=== PATIENT | female | born 1950 | race Caucasian/White ===

== ENCOUNTER → 2018-04-09 07:16 | Outpatient (CLI) | payer MEDICARE, SELFPAY ==
[2018-04-09 08:27] LABS: Abs Immature Grans 0.01 k/cumm (0.0-0.09); Absolute Basophil Count 0.04 k/cumm (0.0-0.2); Absolute Eosinophil Count 0.43 k/cumm (0.0-0.7); Absolute Lymphocyte Count 1.83 k/cumm (1.2-3.4); Absolute Monocyte Count 0.65 k/cumm (0.11-0.7); Absolute Neutrophil Count 4.03 k/cumm (1.2-6.7); Basophils % 0.6; Eosinophils % 6.2; HCT 39.5 % (36.0-46.0); HGB 12.8 g/dL (12.0-15.5); Immature Grans % 0.1; Lymphocytes % 26.2; Mean Corp. HGB Concentration 32.4 g/dL (32.0-36.0); Mean Corpuscular Hemoglobin 28.3 pg (27.0-33.0); Mean Corpuscular Volume 87.2 fL (80-95); Mean Platelet Volume 11.7 fL (8.0-11.0); Monocytes % 9.3; Neutrophils % 57.6; Platelet Count 214 x1000/uL (130-400); RBC 4.53 m/cumm (4.00-5.20); RBC Distribution Width 14.8 % (11.7-14.6); White Blood Cell Count 6.99 k/cumm (4.4-10.8)
[2018-04-09 09:56] LABS: ALT 23 U/L (12-78); AST 15 U/L (15-37); Albumin 3.6 g/dL (3.4-5.0); Alkaline Phosphatase 95 U/L (46-116); Anion Gap 6.5 mmol/L (3-11); BUN 15 mg/dL (7-18); Bilirubin, Total 0.4 mg/dL (0.2-1.0); CO2 29.5 mmol/L (21.0-32.0); CREATININE 0.79 mg/dL (0.55-1.02); Calcium 8.9 mg/dL (8.5-10.1); Chloride 104 mmol/L (98-107); Cholesterol 179 mg/dL (50-200); Glucose 97 mg/dL (70-100); HDL Cholesterol 62 mg/dL (40-60); LDL CHOLESTEROL 100 mg/dL (<100); Potassium 4.3 mmol/L (3.5-5.1); Sodium 140 mmol/L (136-145); TSH (W/Ref FT4) 1.29 uIU/mL (0.358-3.74); Total Protein 6.7 g/dL (6.4-8.2); Triglyceride 94 mg/dL (30-150)
== END ==
PROVIDERS: PCP Nurse Practitioner; Visit Provider Nurse Practitioner
DX: E03.9 Hypothyroidism, unspecified (principal); E78.00 Pure hypercholesterolemia, unspecified; I10 Essential (primary) hypertension
CPT/HCPCS: 36415; 80053; 80061; 83721; 84443; 85025

== ENCOUNTER 2018-10-16 08:23 | Outpatient (CLI) | payer MEDICARE, SELFPAY ==
[2018-10-16 10:04] LABS: ALT 26 U/L (12-78); AST 17 U/L (15-37); Albumin 3.5 g/dL (3.4-5.0); Alkaline Phosphatase 110 U/L (46-116); Anion Gap 7.4 mmol/L (3-11); BUN 18 mg/dL (7-18); Bilirubin, Total 0.4 mg/dL (0.2-1.0); CO2 31.6 mmol/L (21.0-32.0); CREATININE 0.83 mg/dL (0.55-1.02); Calcium 10.1 mg/dL (8.5-10.1); Chloride 103 mmol/L (98-107); Cholesterol 206 mg/dL (50-200); Glucose 110 mg/dL (70-100); HDL Cholesterol 69 mg/dL (40-60); LDL CHOLESTEROL 107 mg/dL (<100); Potassium 4.6 mmol/L (3.5-5.1); Sodium 142 mmol/L (136-145); TSH (W/Ref FT4) 2.37 uIU/mL (0.358-3.74); Total Protein 7.1 g/dL (6.4-8.2); Triglyceride 124 mg/dL (30-150)
== END 2018-10-16 08:43 ==
PROVIDERS: PCP Nurse Practitioner; Visit Provider Nurse Practitioner
DX: E78.00 Pure hypercholesterolemia, unspecified (principal); I10 Essential (primary) hypertension; E03.9 Hypothyroidism, unspecified; E66.9 Obesity, unspecified
CPT/HCPCS: 36415; 80053; 80061; 83721; 84443

== ENCOUNTER 2018-10-17 00:15 | Outpatient (CLI) | payer MEDICARE, SELFPAY ==
--- NOTE | 2018-10-17 13:34 | DI.RAD_ITS ---
SYMPTOMS/DIAGNOSIS: SCREENING FOR OSTEOPOROSIS IN A POSTMENOPAUSAL WOMAN, Z78.0, Z13.820 DEXA SCAN: Routine examination was performed. The single lateral image shows no compression deformities. Evaluation of the left hip shows a total T score of 0.8 and a Z score of 2.1. Evaluation of the lumbar spine shows a total T score of 0.1 and a Z score of 2. These are within normal limits. No evidence of osteoporosis is present. IMPRESSION: No evidence of osteoporosis.
--- NOTE | 2018-10-17 14:32 | DI.MAMMO_ITS ---
SYMPTOMS/DIAGNOSIS: SCREENING, Z12.31 MAMMOGRAMS: Mammograms were interpreted according to the usual protocol including computer analysis with CAD system, tomosynthesis and C view imaging. Comparison is with the prior examinations. There is a focal asymmetric density in the outer retroareolar region of the left breast seen on the craniocaudad view. In addition, there is a nodular area of asymmetric breast tissue in the upper left breast seen on the mediolateral oblique view. These areas should be further evaluated with spot compression views. Ultrasound may be indicated at that time. No other suspicious masses or microcalcifications are seen. Breast density category B, category 0. MQSA ASSESSMENT OF FINDINGS: Incomplete: Needs additional imaging evaluation. Category 0. Patient will receive a letter notifying them of these results. BI-RADS category B. There are scattered areas of fibroglandular density.
== END 2018-10-17 00:35 ==
PROVIDERS: PCP Nurse Practitioner; Visit Provider Nurse Practitioner
DX: Z12.31 Encounter for screening mammogram for malignant neoplasm of breast (principal); Z13.820 Encounter for screening for osteoporosis; Z78.0 Asymptomatic menopausal state; R92.8 Other abnormal and inconclusive findings on diagnostic imaging of breast
CPT/HCPCS: 77063; 77067; 77080

== ENCOUNTER 2018-10-28 01:38 | Outpatient (CLI) | payer MEDICARE, SELFPAY ==
--- NOTE | 2018-10-28 14:13 | DI.MAMMO_ITS ---
SYMPTOM/DIAGNOSIS: F/U ABNL MAMMO, ASYMMETRIC BREAST TISSUE LEFT BREAST ADDITIONAL VIEWS: CC and MLO spot compression views were performed for questioned areas of asymmetry in the superior and subareolar regions. No persistent abnormality is seen on the additional views performed. The findings are consistent with overlying fibroglandular tissue. IMPRESSION: Category 1, negative mammogram. Yearly screening mammography is recommended. SA ASSESSMENT OF FINDINGS: Negative. Category 1. Patient will receive a letter notifying them of these results. BI-RADS category B. There are scattered areas of fibroglandular density.
== END 2018-10-28 01:58 ==
PROVIDERS: PCP Nurse Practitioner; Visit Provider Nurse Practitioner
DX: Z12.31 Encounter for screening mammogram for malignant neoplasm of breast (principal); R92.8 Other abnormal and inconclusive findings on diagnostic imaging of breast; N64.59 Other signs and symptoms in breast
CPT/HCPCS: 77063; 77067

== ENCOUNTER 2019-05-15 01:53 | Outpatient (CLI) | payer MEDICARE, SELFPAY ==
--- NOTE | 2019-05-15 11:00 | NS.NUTBLAN_ITS ---
DESCRIPTION: Brittni Valentin presents for nutrition consult with multiple comorbidities including hypertension, hypothyroidism, cholesterol and stomach issues taking omeprazole. Brittni takes coffee with cardamom changed from croatian vanilla creamer, to decrease acidity in coffee. She has an egg, sausage or le or oatmeal with maple syrup, peanut butter and milk with le. Lunch is leftovers or soup such as lentil mixed vegetable, tomato. SHe often has a salad. Afternoon snack of apple; supper baked beans hot dogs last night. She has evening snack of sugar free chocolate pudding, popcorn, chips, candy, toast with peanut butter; mustard pretzels last night. Brittni has joined a health club. She has difficulty with her ankles and knees from arthritis, however she uses the wee fit 14 minute and moves around at least once an hour during the day. INTERVENTION: Addressed hypertension assessing sodium and cardiovascular concerns with emphasis on increasing vegetables to 5 servings per day; cutting back on fatty meats at breakfast especially. Discussed making own dips and salad dressings to cut sodium and possibly fat. Addressed stomach issues advising prevention of GERD symptoms. Brittni is engaged in the conversation and motivated to make small changes to improve her health discomfort and worries. PLAN: Brittni will: decrease sausage/le; increase veggies in omelet, soups, additional veggies at lunch and supper. Drink beverages between meals; wear loose fitting clothes around waist, sit upright for 2 hours after meal; lower fat at supper meal.
== END 2019-05-15 02:13 ==
PROVIDERS: PCP Nurse Practitioner; Visit Provider Dietitian, Registered
DX: I10 Essential (primary) hypertension (principal); E03.9 Hypothyroidism, unspecified; E78.89 Other lipoprotein metabolism disorders; Z71.3 Dietary counseling and surveillance
CPT/HCPCS: 97802

== ENCOUNTER 2019-06-19 17:00 | Outpatient (REF) | payer MEDICARE, SELFPAY ==
--- NOTE | 2019-06-19 16:30 | PAPFT_PTH ---
PATIENT: Brittni Valentin LOC: [facility] U#:[id number] AGE/SX: 68/F ROOM: RE06/19/[address]: Michele Quiroga MD : 1950 BED: DIS: 06/19/2019 SPEC #: [id number] RECD: 06/19/19 18:24 STATUS: BC REQ #: [id number] DAWOOD: 06/19/19 16:[address]: Michele Quiroga DEPT: [facility] Cytology RECD BY: Sunshine Gipson ENTERED: 06/19/19 18:25 SP TYPE: PAPFT PARESH DR: Ann Choi APRN Tissues: 1 - CX/ENDOCX FOR PAP SMEARS Procedures: PAP THIN PREP/UVM Screening HPV DNA PROBE Comments: [id number]
== END 2019-06-19 17:20 ==
LOC: LBN 17:00
PROVIDERS: PCP Nurse Practitioner; Visit Provider Obstetrics & Gynecology
DX: Z12.4 Encounter for screening for malignant neoplasm of cervix (principal); Z11.51 Encounter for screening for human papillomavirus (HPV)
CPT/HCPCS: 88142; 87624

== ENCOUNTER 2019-06-25 01:04 | Outpatient (CLI) | payer MEDICARE, SELFPAY ==
--- NOTE | 2019-06-25 12:33 | DI.US_ITS ---
EXAM: US PELVIS TRANSVAGINAL CLINICAL HISTORY: PMB N95.0 TECHNIQUE: Ultrasound performed using standard protocol. COMPARISON: No exams were available for comparison FINDINGS: The uterus measures 8.0 cm long x 3.2 cm AP x 4.7 cm transverse. Fundal endometrium has a masslike a ppearance and is thickened and echogenic. It measures focally 3.5 x 2.6 x 2.7 cm. There is internal blood flow. Cervical nabothian cysts are present. The left ovary was not visualized transabdominal ly or transvaginally. The right ovary measures 1.8 x 1.4 x 1.2 cm. It is unremarkable. No free pelv ic fluid is seen. There is no hydronephrosis. IMPRESSION: Thickened heterogeneous vascular fundal endometrium. This area measures 3.5 x 2.6 x 2.7 cm. Endomet rial mass/neoplasm cannot be excluded. Gynecologic consult is recommended.
== END 2019-06-25 01:24 ==
PROVIDERS: PCP Nurse Practitioner; Visit Provider Obstetrics & Gynecology
DX: N95.0 Postmenopausal bleeding (principal); N85.8 Other specified noninflammatory disorders of uterus
CPT/HCPCS: 76830; 76856

== ENCOUNTER 2019-07-04 12:43 | Outpatient (CLI) | payer MEDICARE, SELFPAY ==
[2019-07-04 13:27] LABS: Abs Immature Grans 0.01 k/cumm (0.0-0.09); Absolute Basophil Count 0.05 k/cumm (0.0-0.2); Absolute Eosinophil Count 0.36 k/cumm (0.0-0.7); Absolute Lymphocyte Count 1.96 k/cumm (1.2-3.4); Absolute Monocyte Count 0.57 k/cumm (0.11-0.7); Absolute Neutrophil Count 4.32 k/cumm (1.2-6.7); Basophils % 0.7; HCT 39.6 % (36.0-46.0); HGB 12.9 g/dL (12.0-15.5); Immature Grans % 0.1; Mean Corp. HGB Concentration 32.6 g/dL (32.0-36.0); Mean Corpuscular Hemoglobin 28.4 pg (27.0-33.0); Mean Corpuscular Volume 87.2 fL (80-95); Monocytes % 7.8; Neutrophils % 59.4; Platelet Count 280 x1000/uL (130-400); RBC 4.54 m/cumm (4.00-5.20); RBC Distribution Width 14.7 % (11.7-14.6); White Blood Cell Count 7.27 k/cumm (4.4-10.8)
== END 2019-07-04 13:03 ==
PROVIDERS: PCP Nurse Practitioner; Visit Provider Obstetrics & Gynecology
DX: N95.0 Postmenopausal bleeding (principal); Z01.818 Encounter for other preprocedural examination; Z01.812 Encounter for preprocedural laboratory examination
CPT/HCPCS: 36415; 86850; 86900; 86901; 85025

== ENCOUNTER 2019-07-09 06:02 | Day surgery (SDC) | payer MEDICARE, SELFPAY ==
[2019-07-09 06:25] VITALS: PULSE 77; RESP 18; TEMP 36.6; O2SAT 95
[2019-07-09] MEDS: Lactated Ringers 1,000 ML 100 ML IV (06:50)
--- NOTE | 2019-07-09 07:00 | DI.US_ITS ---
EXAM: US PELVIS LIMITED CLINICAL HISTORY: Intraoperative instrument guidance TECHNIQUE: Ultrasound performed using standard protocol. COMPARISON: US PELVIS TRANSVAGINAL from 06/25/2019 FINDINGS: Sonography was utilized by Dr. Quiroga during the performance of an intraoperative endometrial biopsy. Please refer to the procedure report for complete details.
[2019-07-09] MEDS: Lidocaine 1% Multi-Dose 50 ML VIAL (07:56)
--- NOTE | 2019-07-09 08:11 | ENDOMET_PTH ---
PATIENT: Brittni Valentin LOC: [facility] U#:[id number] AGE/SX: 68/F ROOM: RE07/09/[address]: Michele Quiroga MD : 1950 BED: DIS: 07/09/2019 SPEC #: [id number] RECD: 07/09/19 12:30 STATUS: BC RETemitope #: [id number] DAWOOD: 07/09/19 08:[address]: Michele Quiroga DEPT: Surgical Specimen RECD BY: Sunshine Gipson ENTERED: 07/09/19 12:33 SP TYPE: Endomet OT DR: Ann Choi APRN Tissues: 1 - ENDOMETRIUM BX/CURRETTE Procedures: GROSS AND MICRO LEVEL 4 Comments: [id number]
--- NOTE | 2019-07-09 08:43 | W.PM.OP ---
Date of service: 07/09/19 Time of Service: 08:43 Operative Note Operative Note DATE OF PROCEDURE: 07/09/19 PRE-OP DIAGNOSIS: Thickened EM Cervical stenosis POST-OP DIAGNOSIS: same PROCEDURE: Hysteroscopy D&C SURGEON: Michele Quiroga ANESTHESIA: CRICKETA and MAT ESTIMATED BLOOD LOSS: 10 PATHOLOGY: other (Endometrial curettings) COMPLICATIONS: None Patient was transported to: PACU Patient's condition: stable Findings: 1. Thickened vascular appearing lesion occupying a large portion of the endometrial cavity. Procedure Description: The patient was taken to the operating room and after adequate general anesthesia was obtained the patient was placed in lithotomy position. The patient was prepped and draped in the usual sterile manner. A Haddad catheter was placed in the bladder and the bladder was distended with approximately 200 mL's of normal saline. This was performed to facilitate ultrasound guidance due to cervical stenosis. A speculum was placed in the vagina with good visualization of the cervix. The anterior lip of the cervix was grasped with a single-tooth tenaculum. A paracervical block with 10 cc of 1% plain lidocaine solution was instilled. The cervix was gently dilated with Tracey dilators. This was performed under ultrasound guidance ensuring entrance to the endometrial cavity. The 5 mm hysteroscope with normal saline distention media was advanced to the cervix. This was also placed under ultrasound guidance and the endometrial cavity was entered. The cavity was occupied by a large glandular vascular lesion with the appearance of possible malignancy. The hysteroscope was removed. A small sharp loop curette was advanced also under ultrasound guidance and a curettage was performed. Specimens were submitted to pathology. The procedure was concluded at this point. The Haddad catheter was removed after bladder drainage. All other instrumentation was removed. The patient was transferred to PACU in stable condition.
--- NOTE | 2019-07-09 08:51 | W.PM.DSUDISC ---
Discharge Plan Discharge Details Attending Provider: Michele Quiroga Primary Care Provider: Ann Choi Home Meds and New Rx's Prescriptions: No Action meclizine 12.5 mg tablet 12.5 mg PO TID PRN (Reason: vertigo) Qty: 30 RF: 1 levothyroxine 75 mcg tablet 75 mcg PO DAILY Qty: 90 RF: 3 omeprazole 20 mg capsule,delayed release(DR/EC) 20 mg PO DAILY Qty: 30 RF: 12 acetaminophen 325 MG tablet 325 mg PO Q6H PRN RF: 0 Fish Oil 1 EACH capsule 1 ea PO DAILY RF: 0 vit d3 1,000 units PO DAILY RF: 0 fluticasone propionate [Flonase Allergy Relief] 9.9 ML spray,suspension 9.9 ml NS DAILY Qty: 3 RF: 3 docusate sodium [Stool Softener] 100 MG tablet 100 mg PO BID Qty: 100 RF: 6 losartan 25 mg tablet 25 mg PO DAILY Qty: 90 RF: 3 hydrochlorothiazide 25 mg tablet 25 mg PO DAILY Qty: 90 RF: 3 lovastatin 20 mg tablet 40 mg PO DAILY Qty: 180 RF: 3 DS: Diagnosis Discharge Diagnosis (1) Post-menopausal bleeding: Status: Acute (2) Cervical stenosis (uterine cervix): Status: Acute
[2019-07-09] MEDS: Acetaminophen 500 MG TAB 1000 MG PO (09:04)
[2019-07-09 09:05] VITALS: BP 155/86; PULSE 63; RESP 16; TEMP 36; O2SAT 98
== END 2019-07-09 10:04 | disposition home or self-care (01) ==
LOC: SUR 06:02
PROVIDERS: PCP Nurse Practitioner; Visit Provider Obstetrics & Gynecology
PROC: 0UDB8ZZ Extraction of Endometrium, Via Natural or Artificial Opening Endoscopic (ICD-10-PCS; CPT 58558; principal; 2019-07-09 07:30)
DX: C54.1 Malignant neoplasm of endometrium (principal); R93.89 Abnormal findings on diagnostic imaging of other specified body structures; N95.0 Postmenopausal bleeding; N88.2 Stricture and stenosis of cervix uteri
CPT/HCPCS: 58558; 76998; 76857; 88305

== ENCOUNTER 2019-09-17 07:53 | Outpatient (CLI) | payer MEDICARE, SELFPAY ==
[2019-09-17 08:59] LABS: ALT 24 U/L (14-59); AST 22 U/L (15-37); Albumin 3.6 g/dL (3.4-5.0); Alkaline Phosphatase 115 U/L (46-116); Anion Gap 8.4 mmol/L (3-11); BUN 17 mg/dL (7-18); Bilirubin, Total 0.3 mg/dL (0.2-1.0); CO2 25.6 mmol/L (21.0-32.0); Calcium 9.5 mg/dL (8.5-10.1); Chloride 104 mmol/L (98-107); Glucose 107 mg/dL (74-106); Potassium 4.2 mmol/L (3.5-5.1); Sodium 138 mmol/L (136-145); TSH (W/Ref FT4) 1.54 uIU/mL (0.36-3.74); Total Protein 7.3 g/dL (6.4-8.2)
[2019-09-17 09:13] LABS: Calculated LDL 133 mg/dL; Cholesterol 216 mg/dL (<200); HDL Cholesterol 61 mg/dL (40-60); Triglyceride 111 mg/dL (<150)
== END 2019-09-17 08:13 ==
PROVIDERS: PCP Nurse Practitioner; Visit Provider Nurse Practitioner
DX: I10 Essential (primary) hypertension (principal); E03.9 Hypothyroidism, unspecified; E78.00 Pure hypercholesterolemia, unspecified; E66.9 Obesity, unspecified
CPT/HCPCS: 36415; 80053; 80061; 84443

== ENCOUNTER 2019-09-26 01:45 | Outpatient (CLI) | payer MEDICARE, SELFPAY ==
[2019-09-26] MEDS: Breeza Beverage 473 ML BTL PO ×2 (12:18→12:19)
[2019-09-26] MEDS: Omnipaque 350 MG/ML 50 ML BTL PO (12:19)
[2019-09-26] MEDS: Normal Saline - Diluent 50 ML VIAL IV (13:18)
[2019-09-26] MEDS: Omnipaque 350 MG/ML 100 ML BTL IJ (13:19)
--- NOTE | 2019-09-26 14:06 | DI.CT_ITS ---
EXAM: CT CHEST/ABD/PEL W CLINICAL HISTORY: ENDOMETRIAL CANCER C54.1 TECHNIQUE: CT examination of the chest, abdomen and pelvis was performed utilizing biphasic hepatic imaging with intravenous infusion of 100 cc of Omnipaque 350 and ingestion of dilute barium. COMPARISON: No exams were available for comparison FINDINGS: No bony lesion identified on scanning of the chest, abdomen or pelvis. No evidence of pulmonary embolic disease. Mild cardiomegaly noted. Thoracic aorta is within normal limits in diameter. No pleural effusion seen. There are bilateral fissural nodules, in the right lung posteriorly measuring 10 x 9 x 6 millimeters and in the left lung posteriorly measuring 11 x 7 x 4 millimeters in diameter. No other focal pulmon rashard lesions seen. Possibility of metastatic disease not excluded on the basis of this examination. Additional evaluation with PET/CT may be considered if clinically appropriate. No mediastinal or hilar adenopathy. Liver, spleen and pancreas appear intact. No biliary dilatation. Adrenals and kidneys are unremarka ble, no evidence of urinary tract calcification or obstruction. No significant abdominal or pelvic adenopathy. No inguinal adenopathy. There is colonic diverticulosis. No evidence of acute diverticulitis. There is a low-attenuation we ll-circumscribed bilobed mass adjacent to the descending colon, question sterile old diverticular abs cess. Abdominal adenopathy not excluded but this would be an unusual presentation. No significant a bdominal wall hernia or abdominal wall mass. Abdominal aorta is of normal diameter and no major vascular abnormality is seen. IMPRESSION: Indeterminate bilateral pulmonary nodules are seen in a patient with history of endometrial carcinoma . Prior studies requested for comparison. If no previous examinations are available, additional eval uation with PET/CT may be considered. Bilobed mass slightly above fluid attenuation adjacent to descending colon, question old sterile absc ess. Metastatic lesion not absolutely excluded, again PET/CT may be considered for further evaluatio n.
== END 2019-09-26 02:05 ==
PROVIDERS: PCP Nurse Practitioner; Visit Provider Radiology Radiation Oncology
DX: C54.1 Malignant neoplasm of endometrium (principal); Z12.89 Encounter for screening for malignant neoplasm of other sites; I51.7 Cardiomegaly; R91.8 Other nonspecific abnormal finding of lung field; K57.30 Diverticulosis of large intestine without perforation or abscess without bleeding
CPT/HCPCS: 74177; 71260; J3490; Q9967

== ENCOUNTER 2019-10-24 10:59 | Outpatient (REF) | payer MEDICARE, SELFPAY | END 2019-10-24 11:19 | LOC: LBN 10:59 | PROVIDERS: PCP Nurse Practitioner; Visit Provider Family Medicine | DX: J06.9 Acute upper respiratory infection, unspecified (principal) | CPT/HCPCS: 87449 ==

== ENCOUNTER 2019-10-24 13:14 | Outpatient (CLI) | payer MEDICARE, SELFPAY ==
--- NOTE | 2019-10-24 11:00 | DI.RAD_ITS ---
EXAM: XR CHEST 2V PA LATERAL INDICATION: Cough, fever, undergoing XRT; r/o pneumonia, J06.9 ACUTER UPPER. COMPARISON: No exams were available for comparison TECHNIQUE: 2D digital imaging was performed. FINDINGS: The lungs are suboptimally inflated on both views. There is a linear area of atelectasis or scarring seen in the left upper lobe. There is question of mildly increased densities at the right lung base . The findings could represent atelectasis versus infiltrate. No effusions are seen. Degenerative changes are seen in the spine. IMPRESSION: Poor pulmonary inflation. Question of a right lower lobe infiltrate versus atelectasis. DATA REPOSITORY: RADIATION DOSE DELIVERED:
== END 2019-10-24 13:34 ==
PROVIDERS: PCP Nurse Practitioner; Visit Provider Family Medicine
DX: R05 Cough (principal); R50.9 Fever, unspecified; J06.9 Acute upper respiratory infection, unspecified; J98.4 Other disorders of lung
CPT/HCPCS: 71046

== ENCOUNTER 2019-10-30 09:39 | Outpatient (CLI) | payer MEDICARE, SELFPAY ==
[2019-10-30 10:04] LABS: Abs Immature Grans 0.04 k/cumm (0.0-0.09); Absolute Basophil Count 0.03 k/cumm (0.0-0.2); Absolute Eosinophil Count 0.28 k/cumm (0.0-0.7); Absolute Lymphocyte Count 0.84 k/cumm (1.2-3.4); Absolute Monocyte Count 0.58 k/cumm (0.11-0.7); Absolute Neutrophil Count 3.62 k/cumm (1.2-6.7); Basophils % 0.6; Eosinophils % 5.2; HCT 38.1 % (36.0-46.0); HGB 12.2 g/dL (12.0-15.5); Immature Grans % 0.7 %; Lymphocytes % 15.6; Mean Corpuscular Hemoglobin 27.5 pg (27.0-33.0); Mean Corpuscular Volume 85.8 fL (80-95); Mean Platelet Volume 10.9 fL (8.0-11.0); Monocytes % 10.8; Neutrophils % 67.1; Platelet Count 220 x1000/uL (130-400); RBC 4.44 m/cumm (4.00-5.20); RBC Distribution Width 14.4 % (11.7-14.6); White Blood Cell Count 5.39 k/cumm (4.4-10.8)
== END 2019-10-30 09:59 ==
PROVIDERS: PCP Nurse Practitioner; Visit Provider Radiology Radiation Oncology
DX: C54.1 Malignant neoplasm of endometrium (principal)
CPT/HCPCS: 36415; 85025

== ENCOUNTER 2019-11-12 13:37 | Outpatient (CLI) | payer MEDICARE, SELFPAY ==
[2019-11-12 14:00] LABS: Abs Immature Grans 0.01 k/cumm (0.0-0.09); Absolute Basophil Count 0.02 k/cumm (0.0-0.2); Absolute Eosinophil Count 0.33 k/cumm (0.0-0.7); Absolute Lymphocyte Count 0.56 k/cumm (1.2-3.4); Absolute Monocyte Count 0.64 k/cumm (0.11-0.7); Absolute Neutrophil Count 3.69 k/cumm (1.2-6.7); Basophils % 0.4; Eosinophils % 6.3; HCT 39.7 % (36.0-46.0); HGB 12.7 g/dL (12.0-15.5); Immature Grans % 0.2 %; Lymphocytes % 10.7; Mean Corpuscular Hemoglobin 27.6 pg (27.0-33.0); Mean Corpuscular Volume 86.3 fL (80-95); Mean Platelet Volume 10.4 fL (8.0-11.0); Monocytes % 12.2; Neutrophils % 70.2; Platelet Count 226 x1000/uL (130-400); White Blood Cell Count 5.25 k/cumm (4.4-10.8)
== END 2019-11-12 13:57 ==
PROVIDERS: PCP Nurse Practitioner; Visit Provider Radiology Radiation Oncology
DX: C54.1 Malignant neoplasm of endometrium (principal)
CPT/HCPCS: 36415; 85025

== ENCOUNTER 2019-11-26 13:51 | Outpatient (CLI) | payer MEDICARE, SELFPAY ==
[2019-11-26 14:09] LABS: Abs Immature Grans 0.02 k/cumm (0.0-0.09); Absolute Basophil Count 0.01 k/cumm (0.0-0.2); Absolute Eosinophil Count 0.24 k/cumm (0.0-0.7); Absolute Lymphocyte Count 0.22 k/cumm (1.2-3.4); Absolute Monocyte Count 0.78 k/cumm (0.11-0.7); Absolute Neutrophil Count 4.56 k/cumm (1.2-6.7); Basophils % 0.2; Eosinophils % 4.1; HGB 12.1 g/dL (12.0-15.5); Immature Grans % 0.3 %; Lymphocytes % 3.8; Mean Corp. HGB Concentration 32.7 g/dL (32.0-36.0); Mean Corpuscular Volume 85.6 fL (80-95); Mean Platelet Volume 10.1 fL (8.0-11.0); Monocytes % 13.4; Neutrophils % 78.2; Platelet Count 204 x1000/uL (130-400); RBC 4.32 m/cumm (4.00-5.20); RBC Distribution Width 15.7 % (11.7-14.6); White Blood Cell Count 5.83 k/cumm (4.4-10.8)
== END 2019-11-26 14:11 ==
PROVIDERS: PCP Nurse Practitioner; Visit Provider Radiology Radiation Oncology
DX: C54.1 Malignant neoplasm of endometrium (principal)
CPT/HCPCS: 36415; 85025

== ENCOUNTER 2020-07-30 02:35 | Outpatient (CLI) | payer MEDICARE, SELFPAY ==
[2020-07-30 10:11] LABS: ALT 29 U/L (14-59); AST 18 U/L (15-37); Albumin 3.9 g/dL (3.4-5.0); Alkaline Phosphatase 111 U/L (46-116); Anion Gap 5.1 mmol/L (3-11); BUN 18 mg/dL (7-18); Bilirubin, Total 0.3 mg/dL (0.2-1.0); CO2 29.9 mmol/L (21.0-32.0); CREATININE 0.87 mg/dL (0.55-1.02); Calcium 9.4 mg/dL (8.5-10.1); Calculated LDL 97 mg/dL (<100); Chloride 103 mmol/L (98-107); Cholesterol 189 mg/dL (<200); Glucose 110 mg/dL (74-106); HDL Cholesterol 68 mg/dL (40-60); Potassium 4.4 mmol/L (3.5-5.1); Sodium 138 mmol/L (136-145); TSH (W/Ref FT4) 2.88 uIU/mL (0.36-3.74); Total Protein 7.1 g/dL (6.4-8.2); Triglyceride 122 mg/dL (<150)
== END 2020-07-30 02:55 ==
PROVIDERS: PCP Nurse Practitioner; Visit Provider Nurse Practitioner
DX: I10 Essential (primary) hypertension (principal); E03.9 Hypothyroidism, unspecified; E78.00 Pure hypercholesterolemia, unspecified; E66.9 Obesity, unspecified
CPT/HCPCS: 36415; 80053; 80061; 84443

== ENCOUNTER 2020-09-30 00:24 | Outpatient (CLI) | payer MEDICARE, SELFPAY ==
--- NOTE | 2020-09-30 07:45 | DI.MAMMO_ITS ---
EXAM: MG MAMMO SCREENING CLINICAL HISTORY: screening,z12.39 TECHNIQUE: Bilateral full field digital CC and MLO mammographic images were obtained with 3D tomosyn thesis and utilizing computer aided detection (CAD). COMPARISON: Available for comparison. FINDINGS: Masses/Architectural Distortion: None seen. Microcalcifications: No suspicious pleomorphic-type are seen. Skin Thickening/Nipple Retraction: None. IMPRESSION: 1. No significant interval change with no specific features of malignancy noted. 2. Unless there is more urgent need, screening mammography is recommended, as per [employer] guidelines. BI-RADS Category 1 - Negative Breast Density - Category B - Scattered areas of fibroglandular density Breast density category C or D implies that the patient has dense breast tissue. Dense breast tissue is very common and is not abnormal but dense breast tissue can make it harder to find cancer on a ma mmogram. Also, dense breast tissue may increase their breast cancer risk. This information about the result of the mammogram report was provided to the patient to raise their awareness. Use this report when you speak with the patient about their risks for breast cancer, which includes their family hist ory. At that time, you may recommend for more screening tests (Ultrasound or MRI) as they might be us eful based on their risk. A negative radiographic report should not delay biopsy if a dominant or clinically suspicious mass is present. Up to ten percent of cancers are not identified on mammography. A negative report may reinforce clinical impression. Adenosis and dense breasts may obscure an underlying neoplasm. False positive reports average 6 to 10%. Patient will receive a letter notifying them of these results.
== END 2020-09-30 00:25 | disposition home or self-care (01) ==
LOC: DI 00:25
PROVIDERS: PCP Nurse Practitioner; Visit Provider Nurse Practitioner
DX: Z12.31 Encounter for screening mammogram for malignant neoplasm of breast (principal)
CPT/HCPCS: 77063; 77067

== ENCOUNTER 2020-10-13 11:00 | Outpatient (CLI) | payer MEDICARE, SELFPAY ==
--- NOTE | 2020-10-13 11:00 | DI.RAD_ITS ---
EXAM: XR KNEE RT 3V AP,LAT,BENEDICTO CLINICAL HISTORY: bilateral pain. TECHNIQUE: 2D digital imaging was performed. COMPARISON: No exams were available for comparison FINDINGS: There is no evidence of fracture. There appears to be a small joint effusion. There are degenerativ e changes in all 3 compartments, most prominent in the medial and patellofemoral compartments where t here is [id number]. Also significant degenerative changes in the lateral compartment. There is a calcification in the soft tissues lateral to the lateral to the joint measuring approximately 9 x 6 m illimeters. IMPRESSION: Advanced osteoarthritic degenerative changes in the right knee. DATA REPOSITORY: RADIATION DOSE DELIVERED:
--- NOTE | 2020-10-13 11:00 | DI.RAD_ITS ---
EXAM: XR KNEE LT 4V AP,LAT,BENEDICTO,PAT CLINICAL HISTORY: bilateral pain. TECHNIQUE: 2D digital imaging was performed. COMPARISON: CR XR KNEE RT 3V AP,LAT,BENEDICTO from 10/13/2020 FINDINGS: There is no evidence of fracture or obvious joint effusion. However, there are significant tricompar tmental osteoarthritic degenerative changes. Also mild medial subluxation of the femoral condyles re lative to the tibial plateau. No patellar displacement. No osseous lesions. IMPRESSION: Osteoarthritic degenerative changes moderate-severe. DATA REPOSITORY: RADIATION DOSE DELIVERED:
== END 2020-10-13 11:01 | disposition home or self-care (01) ==
LOC: DIORS 10-14 08:15
PROVIDERS: PCP Nurse Practitioner; Referring Provider Nurse Practitioner; Visit Provider Student in an Organized Health Care Education/Training Program
DX: M25.561 Pain in right knee (principal); M25.562 Pain in left knee; M25.461 Effusion, right knee; M17.0 Bilateral primary osteoarthritis of knee
CPT/HCPCS: 73562; 99203; 99214; 73564

== ENCOUNTER 2020-11-22 11:12 | Outpatient (CLI) | payer MEDICARE, SELFPAY ==
--- NOTE | 2020-11-22 11:08 | DI.RAD_ITS ---
EXAM: XR STANDING ALIGNMENT CLINICAL HISTORY: preop. TECHNIQUE: 2D digital imaging was performed. COMPARISON: CR XR KNEE LT 4V AP,LAT,BENEDICTO,PAT from 10/13/2020 FINDINGS: There are significant degenerative changes in both knees. There is moderate-advanced narrowing of th e medial compartment of the left knee and advanced-severe degenerative narrowing of the medial compar tment of the right knee. Both lateral compartments exhibit normal height but marginal osteophytes. Hips appear unremarkable. Ankles unremarkable. There are no significant osseous lesions in the femurs and tibia. IMPRESSION: Significant osteoarthritic degenerative changes in both knees, appearing to be slightly more prominen t in the right knee. DATA REPOSITORY: RADIATION DOSE DELIVERED:
--- NOTE | 2020-11-22 11:10 | DI.RAD_ITS ---
EXAM: XR KNEE RT 1V CLINICAL HISTORY: preop. TECHNIQUE: 2D digital imaging was performed. COMPARISON: CR XR STANDING ALIGNMENT from 11/22/2020. Other images performed today reviewed FINDINGS: There is no evidence of obvious fracture. There are significant osteoarthritic degenerative changes noted. There is a joint effusion in the suprapatellar bursa evident. IMPRESSION: DATA REPOSITORY: RADIATION DOSE DELIVERED:
== END 2020-11-22 11:13 | disposition home or self-care (01) ==
LOC: DIORS 11:12
PROVIDERS: PCP Nurse Practitioner; Referring Provider Nurse Practitioner; Visit Provider Student in an Organized Health Care Education/Training Program
DX: M17.0 Bilateral primary osteoarthritis of knee (principal); M25.461 Effusion, right knee
CPT/HCPCS: 99213; 73560; 77073

== ENCOUNTER 2020-12-20 04:11 | Outpatient (CLI) | payer MEDICARE, SELFPAY ==
[2020-12-20 10:14] LABS: HGB 12.8 g/dL (11.2-15.7); MCH 29.1 pg (27.0-33.0); MCHC 32.8 % (32.0-36.0); MCV 88.6 fL (80-95); MPV 10.6 fL (8.0-11.0); Platelet Count 236 10^3/uL (130-400); RDW 14.2 % (11.7-14.6); RDW-SD 46.4 fL; WBC 6.71 10^3/uL (4.4-10.8)
[2020-12-20 10:26] LABS: Source Nasal/Nares
[2020-12-20 10:48] LABS: Anion Gap 8.7 mmol/L (3-11); BUN 21 mg/dL (7-18); CO2 29.3 mmol/L (21.0-32.0); CREATININE 0.7 mg/dL (0.55-1.02); Calcium 9.3 mg/dL (8.5-10.1); Chloride 105 mmol/L (98-107); Glucose 82 mg/dL (74-106); Potassium 3.8 mmol/L (3.5-5.1); Sodium 143 mmol/L (136-145)
[2020-12-20 13:22] LABS: COVID-19 PCR Negative (Negative)
== END 2020-12-20 04:12 | disposition home or self-care (01) ==
LOC: LBO 04:11
PROVIDERS: PCP Nurse Practitioner; Visit Provider Student in an Organized Health Care Education/Training Program
DX: M25.561 Pain in right knee (principal); M25.562 Pain in left knee; M17.0 Bilateral primary osteoarthritis of knee; Z20.822 Contact with and (suspected) exposure to COVID-19; Z01.818 Encounter for other preprocedural examination; Z01.812 Encounter for preprocedural laboratory examination
CPT/HCPCS: 36415; 80048; 85027; 87635

== ENCOUNTER 2020-12-21 08:16 | Day surgery (SDC) | payer MEDICARE, SELFPAY ==
[2020-12-21] VITALS (9 sets, daily range): BP systolic 128–141; BP diastolic 50–88; PULSE 65–89; RESP 16–23; TEMP 36–36.5; O2SAT 97–100; BMI 45.8
--- NOTE | 2020-12-21 08:10 | W.PM.DSUDISC ---
Documented by User: TOMEKA Church 12/21/20 08:16 Discharge Plan Disposition Patient Disposition: HOME Condition: Good Discharge Details Reason For Visit: Right TKA Attending Provider: Tano Cartwright Primary Care Provider: Ann Choi Home Meds and New Rx's Prescriptions: New acetaminophen 500 mg capsule 1,000 mg PO Q8H PRN PRNQty: 90 RF: 0 aspirin 81 mg tablet,delayed release (DR/EC) 81 mg PO BID Qty: 60 RF: 0 celecoxib 200 mg capsule 200 mg PO BID Qty: 60 RF: 0 gabapentin 300 mg capsule 300 mg PO QHS Qty: 14 RF: 0 oxycodone 5 mg capsule 5 mg PO Q4H PRNQty: 20 RF: 0 pantoprazole 40 mg tablet,delayed release (DR/EC) 40 mg PO DAILY Qty: 30 RF: 0 Continued levothyroxine 75 mcg tablet 75 mcg PO DAILY Qty: 90 RF: 3 docusate sodium [Stool Softener] 100 mg tablet 100 mg PO BID Qty: 100 RF: 6 hydrochlorothiazide 25 mg tablet 25 mg PO DAILY Qty: 90 RF: 3 coenzyme Q10 100 mg tablet 200 mg PO DAILY RF: 0 fluticasone propionate [Flonase Allergy Relief] 9.9 ML spray,suspension 9.9 ml NS DAILY Qty: 3 RF: 3 cholecalciferol (vitamin D3) [Vitamin D3] 25 mcg (1,000 unit) tablet 1,000 unit PO DAILY RF: 0 lovastatin 40 mg tablet 40 mg PO QPM Qty: 90 RF: 3 losartan 25 mg tablet 25 mg PO DAILY Qty: 90 RF: 3 Discontinued acetaminophen 325 MG tablet 325 mg PO Q6H PRN RF: 0 No Action acetaminophen 325 mg Tablet 325 mg PO ONCE RF: 0 Discharge Instructions Additional Instructions: Total Knee Discharge Instructions Activity: The most important activity is to walk. You should try to take short walks a few times a day. It is important that when resting you work on keeping the knee straight. Avoid putting a pillow behind the knee as this will encourage flexion. Work on range of motion exercises as provided by Physical Therapy. - Start outpatient physical therapy within 2 weeks. - You should wear the LEANNA hose on both legs for 2 weeks. You may remove these at night. You may also use any compression sock in place of the LEANNA hose. Dressing: You may remove the Renny wrap on your leg 2 days after your surgery and put on the LEANNA stocking given to you from the hospital. Keep the surgical dressing (underneath the RENNY wrap) in place for at least one week. After the first week it may be removed and replaced with light gauze and tape or nothing. The wound and dressing may get wet after 3 days but avoid soaking the dressing or otherwise it will need to be changed. Many people prefer covering the dressing with cling wrap (saran wrap) to minimize it from getting soaked. If it gets wet, just pat dry. If it starts to peel off then it will need to be changed. Medications: - You should take Tylenol and anti-inflammatory Celebrex as your primary pain control medications. If the Celebrex is too expensive or not covered, please call the office for another alternative (Advil/Ibuprofen or Naproxen/Aleve) - You have been prescribed a stronger pain medication Oxycodone for breakthrough pain, take as needed as prescribed. - You have also been prescribed a stomach acid reduction agent Pantoprozole to help reduce stomach acid and reflux. - You have been prescribed Gabapentin to take at night for restlessness and nerve pain. - You will be taking Aspirin 81mg twice a day for DVT prevention unless instructed otherwise. - If you have constipation you should take Colace or Miralax (both [id number]). It takes most people 3-4 days to have a bowel movement. Follow-up: 2 weeks If you have any acute concerns or questions, please do not hesitate to contact the office at [phone]. You may contact Dr. Cartwright with any questions after hours through the hospital at [phone] or on his cell phone at [phone]. Referrals: Tano Cartwright MD [ [facility] STAFF PHYSICIAN] - Equipment/Supplies: Walker Activity:: Activity as Tolerated Shower/Bathe:: Cover Diet:: As Tolerated Discharge Orders Discharge Orders: Discharge Order (Routine); Ordered 12/21/20 Ordered By: Tano Cartwright DS: Diagnosis Discharge Diagnosis (1) Osteoarthritis of right knee: Status: Acute Documented by User: Tano Cartwright MD 12/21/20 14:33 Discharge Plan Disposition Patient Disposition: HOME Condition: Good Discharge Details Reason For Visit: Right TKA Attending Provider: Tano Cartwright Primary Care Provider: Ann Choi Home Meds and New Rx's Prescriptions: New acetaminophen 500 mg capsule 1,000 mg PO Q8H PRN PRNQty: 90 RF: 0 aspirin 81 mg tablet,delayed release (DR/EC) 81 mg PO BID Qty: 60 RF: 0 celecoxib 200 mg capsule 200 mg PO BID Qty: 60 RF: 0 gabapentin 300 mg capsule 300 mg PO QHS Qty: 14 RF: 0 oxycodone 5 mg capsule 5 mg PO Q4H PRNQty: 20 RF: 0 pantoprazole 40 mg tablet,delayed release (DR/EC) 40 mg PO DAILY Qty: 30 RF: 0 Continued levothyroxine 75 mcg tablet 75 mcg PO DAILY Qty: 90 RF: 3 docusate sodium [Stool Softener] 100 mg tablet 100 mg PO BID Qty: 100 RF: 6 hydrochlorothiazide 25 mg tablet 25 mg PO DAILY Qty: 90 RF: 3 coenzyme Q10 100 mg tablet 200 mg PO DAILY RF: 0 fluticasone propionate [Flonase Allergy Relief] 9.9 ML spray,suspension 9.9 ml NS DAILY Qty: 3 RF: 3 cholecalciferol (vitamin D3) [Vitamin D3] 25 mcg (1,000 unit) tablet 1,000 unit PO DAILY RF: 0 lovastatin 40 mg tablet 40 mg PO QPM Qty: 90 RF: 3 losartan 25 mg tablet 25 mg PO DAILY Qty: 90 RF: 3 Discontinued acetaminophen 325 MG tablet 325 mg PO Q6H PRN RF: 0 No Action acetaminophen 325 mg Tablet 325 mg PO ONCE RF: 0 Discharge Instructions Additional Instructions: Total Knee Discharge Instructions Activity: The most important activity is to walk. You should try to take short walks a few times a day. It is important that when resting you work on keeping the knee straight. Avoid putting a pillow behind the knee as this will encourage flexion. Work on range of motion exercises as provided by Physical Therapy. - Start outpatient physical therapy within 2 weeks. - You should wear the LEANNA hose on both legs for 2 weeks. You may remove these at night. You may also use any compression sock in place of the LEANNA hose. Dressing: You may remove the Renny wrap on your leg 2 days after your surgery and put on the LEANNA stocking given to you from the hospital. Keep the surgical dressing (underneath the RENNY wrap) in place for at least one week. After the first week it may be removed and replaced with light gauze and tape or nothing. The wound and dressing may get wet after 3 days but avoid soaking the dressing or otherwise it will need to be changed. Many people prefer covering the dressing with cling wrap (saran wrap) to minimize it from getting soaked. If it gets wet, just pat dry. If it starts to peel off then it will need to be changed. Medications: - You should take Tylenol and anti-inflammatory Celebrex as your primary pain control medications. If the Celebrex is too expensive or not covered, please call the office for another alternative (Advil/Ibuprofen or Naproxen/Aleve) - You have been prescribed a stronger pain medication Oxycodone for breakthrough pain, take as needed as prescribed. - You have also been prescribed a stomach acid reduction agent Pantoprozole to help reduce stomach acid and reflux. - You have been prescribed Gabapentin to take at night for restlessness and nerve pain. - You will be taking Aspirin 81mg twice a day for DVT prevention unless instructed otherwise. - If you have constipation you should take Colace or Miralax (both [id number]). It takes most people 3-4 days to have a bowel movement. Follow-up: 2 weeks If you have any acute concerns or questions, please do not hesitate to contact the office at [phone]. You may contact Dr. Cartwright with any questions after hours through the hospital at [phone] or on his cell phone at [phone]. Referrals: Tano Cartwright MD [ [facility] STAFF PHYSICIAN] - Equipment/Supplies: Walker Activity:: Activity as Tolerated Shower/Bathe:: Cover Diet:: As Tolerated Discharge Orders Discharge Orders: Discharge Order (Routine); Ordered 12/21/20 Ordered By: Tano Cartwright
[2020-12-21] MEDS: Acetaminophen 500 MG TAB 1000 MG PO (09:07)
[2020-12-21] MEDS: Gabapentin 300 MG CAP PO (09:07)
[2020-12-21] MEDS: Celecoxib 200 MG CAP 400 MG PO (09:08)
--- NOTE | 2020-12-21 09:16 | W.ANESPRE ---
General Info Date of Service Date Performed: 12/21/20 Height: 4 ft 11 in Weight: 102.965 kg Body Mass Index (BMI): 45.8 Surgical Procedure: Operation Date: 12/21/20 10:55 Proposed Procedures Side Surgeon p Knee Total Arthroplasty Right Tano Cartwright MD Meds Allergies and Home Medications Allergies Allergy/AdvReac Type Severity Reaction Status Date / Time penicillin V Allergy Intermediate Rash, fever Verified 12/21/20 08:52 hydralazine AdvReac Unknown Headache/ Verified 12/21/20 08:52 cough Dust, Mold, Pollen Allergy Unknown Uncoded 12/21/20 08:52 Home Medication Medication Instructions Recorded fluticasone propionate [Flonase 9.9 ml NS DAILY #3 canister 07/24/17 Allergy Relief] cholecalciferol (vitamin D3) 25 1,000 unit PO DAILY 11/19/19 mcg (1,000 unit) tablet docusate sodium 100 mg tablet 100 mg PO BID #100 tab-cap 03/16/20 levothyroxine 75 mcg tablet 75 mcg PO DAILY #90 tab-cap 03/16/20 hydrochlorothiazide 25 mg tablet 25 mg PO DAILY #90 tab-cap 09/14/20 lovastatin 40 mg tablet 40 mg PO QPM #90 tab 10/18/20 losartan 25 mg tablet 25 mg PO DAILY #90 tab-cap 10/19/20 coenzyme Q10 100 mg tablet 200 mg PO DAILY tab 12/14/20 acetaminophen 1,000 mg PO Q8H PRN PRN #90 cap 12/21/20 acetaminophen 325 mg PO ONCE 12/21/20 aspirin 81 mg PO BID #60 tab 12/21/20 celecoxib 200 mg PO BID #60 cap 12/21/20 gabapentin 300 mg PO QHS #14 cap 12/21/20 oxycodone 5 mg PO Q4H PRN #20 cap 12/21/20 pantoprazole 40 mg PO DAILY #30 tab 12/21/20 Current Visit Medications: Current Medications Generic Name Dose Route Start Last Admin Trade Name Freq PRN Reason Stop Dose Admin Acetaminophen 1,000 mg 12/21/20 06:00 12/21/20 09:07 Acetaminophen 500 Mg Tab PO 12/21/20 16:00 1,000 mg PREOP KIERAN Administration Acetaminophen 1,000 mg 12/21/20 08:30 Acetaminophen 500 Mg Tab PO TID KIERAN Aspirin 81 mg 12/21/20 08:30 Aspirin E.C. 81 Mg Tabec PO BID KIERAN Celecoxib 400 mg 12/21/20 06:00 12/21/20 09:08 Celecoxib 200 Mg Cap PO 12/21/20 16:00 400 mg PREOP KIERAN Administration Celecoxib 200 mg 12/21/20 20:00 Celecoxib 200 Mg Cap PO BID KIERAN Docusate Sodium 100 mg 12/21/20 08:07 Docusate Sodium 100 Mg Cap PO BID PRN PRN Constipation Gabapentin 300 mg 12/21/20 06:00 12/21/20 09:07 Gabapentin 300 Mg Cap PO 12/21/20 16:00 300 mg PREOP KIERAN Administration Tranexamic Acid 1,000 mg/ 60 mls @ 360 mls/hr 12/21/20 06:00 Sodium Chloride IVPB 12/21/20 16:00 PREOP KIERAN Tranexamic Acid 1,000 mg/ 60 mls @ 360 mls/hr 12/21/20 06:00 Sodium Chloride IVPB 12/21/20 16:00 DIRECTED KIERAN Ringer's Solution 1,000 mls @ 80 mls/hr 12/21/20 06:00 IV 01/19/21 23:59 INFUSION KIERAN Cefazolin Sodium/Dextrose 2 gm in 50 mls @ 100 mls/hr 12/21/20 06:00 Ancef Duplex IVPB 12/21/20 23:59 PREOP KIERAN Cefazolin Sodium/Dextrose 1 gm in 50 mls @ 100 mls/hr 12/21/20 10:00 Ancef Duplex IVPB 12/22/20 02:29 Q8H KIERAN IV Miscellaneous Supplies 1 each 12/21/20 06:00 Iv Access IV 01/19/21 23:59 DIRECTED KIERAN Ondansetron HCl 4 mg 12/21/20 08:07 Ondansetron 4 Mg/2 Ml Vial IVP Q6H PRN PRN Nausea Oxycodone HCl 0 mg 12/21/20 08:07 Oxycodone 5 Mg Tab PO Q3H PRN PRN Pain Pantoprazole Sodium 40 mg 12/22/20 07:30 Pantoprazole 40 Mg Tabcr PO DAILY@0730 KIERAN Polyethylene Glycol 17 gm 12/21/20 08:07 Polyethylene Glycol 3350 17 Gm Packet PO BID PRN PRN Constipation Sodium Chloride 0 ml 12/21/20 06:00 Normal Saline Flush 10 Ml Syr IV 01/19/21 23:59 PRN PRN Sodium Chloride 0 ml 12/21/20 06:00 Normal Saline 10 Ml Vial IJ 01/19/21 23:59 DIRECTED PRN Sterile Water 0 ml 12/21/20 06:00 Water,Injection,Sterile 10 Ml Vial IJ 01/19/21 23:59 DIRECTED PRN Vital Signs and Lab Results Vital Signs Most Recent Vital Signs in EMR: Most Recent Vital Signs Temp Pulse Resp BP Pulse Ox 36.5 C 67 18 128/81 100 12/21/20 09:01 12/21/20 09:01 12/21/20 09:01 12/21/20 09:01 12/21/20 09:01 Point of Care Results Nursing Point of Care Results: No Data to Display Lab Results Blood Type / Crossmatch: Patient ABO/Rh B Positive 07/04/19 13:13 07/04/19 Antibody Screen Negative 07/04/19 13:13 07/04/19 Complete Blood Count: White Blood Count 6.71 10^3/uL (4.4-10.8) 12/20/20 10:00 12/20/20 Red Blood Count 4.40 10^6/uL (3.93-5.22) 12/20/20 10:00 12/20/20 Hemoglobin 12.8 g/dL (11.2-15.7) 12/20/20 10:00 12/20/20 Hematocrit 39.0 % (36.0-46.0) 12/20/20 10:00 12/20/20 Platelet Count 236 10^3/uL (130-400) 12/20/20 10:00 12/20/20 Complete Metabolic Panel: Sodium Level 143 mmol/L (136-145) 12/20/20 10:00 12/20/20 Potassium Level 3.8 mmol/L (3.5-5.1) 12/20/20 10:00 12/20/20 Chloride Level 105 mmol/L (98-107) 12/20/20 10:00 12/20/20 Carbon Dioxide Level 29.3 mmol/L (21.0-32.0) 12/20/20 10:00 12/20/20 Blood Urea Nitrogen 21 mg/dL (7-18) H 12/20/20 10:00 12/20/20 Creatinine 0.7 mg/dL (0.55-1.02) 12/20/20 10:00 12/20/20 Calcium Level 9.3 mg/dL (8.5-10.1) 12/20/20 10:00 12/20/20 Albumin 3.9 g/dL (3.4-5.0) 07/30/20 08:04 07/30/20 Glucose Level 82 mg/dL (74-106) 12/20/20 10:00 12/20/20 Hemoglobin A1c 5.6 % (4.5-6.2) 03/16/20 11:20 03/16/20 Liver Function Panel: Alanine Aminotransferase (ALT/SGPT) 29 U/L (14-59) 07/30/20 08:04 07/30/20 Aspartate Amino Transf (AST/SGOT) 18 U/L (15-37) 07/30/20 08:04 07/30/20 Coagulation Panel: No Data to Display Cardiac Panel: No Data to Display Arterial Blood Gas: No Data to Display Venous Blood Gas: No Data to Display Pancreas Panel: No Data to Display Thyroid Panel: Thyroid Stimulating Hormone (TSH) 2.88 uIU/mL (0.36-3.74) 07/30/20 08:04 07/30/20 Infectious Disease: Coronavirus (COVID-19)(PCR) Negative (Negative) 12/20/20 10:15 12/20/20 Coronavirus 2019 Source Nasal/nares 12/20/20 10:15 12/20/20 Blood Cultures: No Data to Display Toxicology Panel: No Data to Display Panel: No Data to Display PFSH Active Problems Active Problems: Problem Status Onset Code Constipation 04/08/18 K59.00 Essential hypertension 06/07/17 I10 Gastroesophageal reflux disease without esophagitis 04/08/18 K21.9 Hypothyroidism 06/07/17 E03.9 Obesity 10/08/17 E66.9 Pre-diabetes 06/07/17 R73.03 Primary osteoarthritis of both knees 06/07/17 M17.0 Pure hypercholesterolemia 06/07/17 E78.00 Headache 06/07/17 R51 Gout 06/07/17 M10.9 Post-menopausal bleeding N95.0 Cervical stenosis (uterine cervix) N88.2 S/P dilatation and curettage Z98.890 Endometrial carcinoma Medicare annual wellness visit, subsequent Z00.00 Osteoarthritis of right knee M17.11 Osteoarthritis of left knee M17.12 Flat feet, bilateral M21.41, M21.42 Medical History Flat feet, bilateral GERD (gastroesophageal reflux disease) Hiatal hernia High cholesterol HTN (hypertension) Hyperthyroidism pt. denies this Hypothyroidism Osteoarthritis Vertigo Surgical History Appendectomy Cholecystectomy History of colonoscopy History of dilatation and curettage Ligation of fallopian tube Status post hysterectomy with oophorectomy (08/14/19) 08/14/19- [facility] [place] robotic hysterectomy/BSO with sentinel lymph node biopsies. Social History Smoking/Tobacco Use Status: Never Smoking risk assessment performed?: Yes Alcohol Intake: current Alcohol Intake frequency: holidays/special occasions only Alcohol type: wine and other Drug use: Never Substance use type: does not use Details: alcohol:only special occasions Adopted: No Household members: spouse Housing: apartment Number of Children: 5 Communication Needs: None Pets and animals: No Current gender identity: female What is your relationship status?: Panel score (0-1 are the most socially isolated patients): 1 What type of physical activity do you participate in: walking Duration: 15-30 minutes/day Frequency: 1-2 times per week Seatbelt use: always Working smoke detector in home: Yes Fire extinguisher in home: Yes Carbon monox detector in home: Yes Firearms in home: Yes (pellet gun) Firearms unloaded and locked: Yes Do you feel safe at home: Yes Do you feel safe in your relationship?: Yes Anesthesia Assessment and Plan Anesthesia History Personal History: No History of Anesthesia Complications Family History: No Family History of Anesthesia Complications Exercise Tolerance Exercise Tolerance: Metabolic Equivalents>4 Pertinent Negatives Pertinent Negatives: No Major Cardiovascular Symptoms or Complaints, No Major Pulmonary Symptoms or Complaints and No History of CVA/TIA Cardiac & Pulmonary Exam Cardiac Exam: Normal S1/S2 Heart Sounds Pulmonary Exam: Clear Bilateral Breath Sounds Airway Exam Known Difficult Airway: No Mallampati Class: 1 Mouth Opening: Normal (> 3cm) Thyromental Distance: Greater than 3 cm Neck Range of Motion: Full ROM Neck Circumference: Normal Teeth Condition: Normal Dentition and Other (Top front tooth chipped) ASA Classification ASA Score: ASA 2 ASA Emergency: No NPO Status NPO Status: NPO Clears >2 hours, Solids >8 hours Anesthesia Plan Anesthesia Technique: Spinal Anesthesia Airway Planned: Natural Airway Pain Management: Surgeon and patient request nerve block (Adductor) Monitors Used: Standard Monitors
[2020-12-21] MEDS: Lactated Ringers 1,000 ML 80 ML IV (09:50)
[2020-12-21] MEDS: Bupivacaine 0.25% Pres-Free 30 ML VIAL ×2 (10:00→11:13)
[2020-12-21] MEDS: ceFAZolin 2 GM/50 ML BAG IVPB (10:21)
--- NOTE | 2020-12-21 10:55 | W.ANESNERVE ---
Nerve Block Single Injection Procedure Date and Time Date Performed: 12/21/20 Procedure Start: 10:00 Location Where Procedure Performed Procedure Location: PACU Reason Performed: Postoperative Analgesia Requesting Provider: Tano Cartwright Timeout Performed Timeout Performed: Yes Monitoring Used ECG, Blood Pressure and SpO2 Sterility Sterility: Hand Hygiene, Surgical Cap, Surgical Mask, Sterile Gloves, Eye Protection and Chlorhexidine Sedation Given During Procedure Sedation Given (Indicate Dose Given): Versed IV (2 mg) Patient Mental Status Patient Mental Status: Sedate with meaningful communication Nerve Block 1st Nerve Block: Laterality: Right Block Type: Adductor Canal Needle / Catheter Used: 100mm SonoPlex II Local Anesthetic Bolus (Indicate Dose Given): Lidocaine used for local infiltration of skin (2 cc) and Bupivacaine 0.25% (20 cc) Additives (Indicate Dose Given): None Ultrasound: Sterile probe cover and gel used Ultrasound Image Saved?: Yes Nerve Stimulator: Not Used Paresthesia: None Procedure Tolerated: No Complications Procedure Outcome: Successful Performed By: Aldair
[2020-12-21] MEDS: Normal Saline 20 ML VIAL (11:13)
[2020-12-21] MEDS: Ketorolac 30 MG/ML VIAL (11:13)
--- NOTE | 2020-12-21 14:18 | PT.INIE ---
Date of service: 12/21/20 Time of Service: 14:18 PT Notes Visit Reasons: Right TKA Physical Therapy Day Surgery Initial Evaluation Date: 12/21/2020 Referring Doctor: TOMEKA Church PT Orders: PT CONSULT: Eval/Treat. Precautions: WBAT on right LE with AD. Patient Profile/Admitting Diagnosis: Brittni is a 70-year-old female with degenerative joint disease of the right knee and is status post right anterior total knee arthroplasty on postoperative day 0. PMHX: Medical History (Updated 12/14/20 @ 10:17 by TOMEKA Church) Flat feet, bilateral GERD (gastroesophageal reflux disease) Hiatal hernia High cholesterol HTN (hypertension) Hyperthyroidism Osteoarthritis Vertigo Surgical History Appendectomy Cholecystectomy History of colonoscopy History of dilatation and curettage Ligation of fallopian tube Status post hysterectomy with oophorectomy (08/14/19) [place] [facility] [place]BSO with sentinel lymph node biopsies. Social History/Home Situation: Lives with Grover in a private home with 4 steps to enter with rail on the left side going up. Independent with all aspects of ADLs without an assistive device. Equipment Owned/DME: Single-point cane Subjective: Agreeable to PT consult. Denies chest pain, headache, and dizziness throughout. States that will be a good support for her. Indicates that she already has an appointment with outpatient PT services next week. Reports no pain in the right knee during this consult. Objective: General Observation: Supine in stretcher. PAM wraps on right LE. Cryo/Cuff on right knee. TEDS on left knee. Mental Status: Alert and oriented x4 Pain: 0/10 in the right knee throughout ROM: Right Lower Extremity: Hip flexion WFL, able to do 10 straight leg raises without report of pain. Hip abduction WFL. Knee flexion 5 degrees to 100. Knee extension -5 degrees. Ankle dorsiflexion WFL. Ankle plantarflexion WFL. Left Lower Extremity: Hip flexion WFL. Hip abduction WFL. Knee flexion 10 degrees to 90 degrees. Knee extension -10 degrees. Ankle dorsiflexion WFL. Ankle plantarflexion WFL. Strength: Right Lower Extremity: Hip flexors 5/5. Hip abductors 5/5. Knee flexors 3-/5. Knee extensors 3-/5. Ankle dorsiflexors 5/5. Ankle plantarflexors 5/5. Left Lower Extremity:Hip flexors 5/5. Hip abductors 5/5. Knee flexors 3-/5. Knee extensors 3-/5. Ankle dorsiflexors 5/5. Ankle plantarflexors 5/5. Sensation: Intact as to pain and light pressure in bilateral lower extremities Bed Mobility/Transfers: Supine to sit independent Sit to stand standby assist Stand to sit contact-guard assist Bed to chair standby assist Gait: Guided patient through level surface ambulation of 150 feet using front wheeled walker with step to gait pattern and with wheelchair follow of nurse Mary. Minimal cueing provided for correct gait pattern and overall safety. Stairs: Down three 4 inch steps into 6 inch steps x2 sets using single-point cane with 1 hand and with the other hand holding onto a rail with at length standby assist. Minimal cueing given for correct strategy and overall safety. Balance: Static Sitting: Normal Dynamic Sitting: Normal Static Standing: Fair Dynamic Standing: Fair Special Tests: Mobility Limitations Standardized Measure [facility] 6 clicks Basic Mobility Inpatient Short Form: Raw Score: 23 CMS Score: 11% deficit Informed Consent/Education: Patient instructed in purpose of PT consult. Packet containing TKA exercise protocol has been given to patient. Education and training on initial set of exercises that can be done at home have been completed with patient. Assessment: Brittni requires the use of a front wheeled walker for all mobility ADL performance in order to maximize safety and reduce fall risk at home. She will have the support of her Grover as she recovers. She will benefit from outpatient physical therapy services in order to achieve highest functional independence. Patient presents with clinical signs and symptoms consistent with current/admitting diagnoses that have resulted to mobility limitations, gait instability, generalized weakness, and impairment of motor control as demonstrated by the following impairment level findings: 1. Decreased strength to right knee major muscle groups 2. Impaired standing balance 3. Limitation of joint range of motion in right knee Impairments are contributing to the following functional limitations: 1. Inability to safely ambulate without assistive device 2. Increase completion time for mobility ADL performance 3. Increased fall risk Patient is assessed as a 20735 moderate complexity based on the following: History: 70 [id number] with impairment level findings, functional limitations, and past medical history as indicated above Examination: Demonstrable impairment in strength, balance, and mobility level with underlying impairments and functional limitations as documented above Presentation: Evolving Decision Makin moderate complexity Goals: N/A. PT evaluation and 1-2 treatment sessions only for functional mobility training using recommended AD and for HEP instruction with patient and . Plan of Care/Treatment Plan: N/A. PT evaluation and 1-2 treatment session only for functional mobility training using recommended AD and for HEP instruction with patient and . DISCHARGE RECOMMENDATIONS: Home when medically cleared by orthopedic surgeon. Outpatient PT services to achieve highest functional independence. TREATMENT CODE/TIME: 75569 x 20 minutes, 71256 x 27 minutes beginning at 14:18 PM. Thank you for the opportunity to participate in the care of this patient. Eduarda Pro PT, DPT, CLT [facility] [place], [place]
--- NOTE | 2020-12-21 15:01 | W.ANESPOSTOP ---
Postoperative Evaluation Date, Time and Location Date Performed: 12/21/20 Time Performed: 15:02 Patient Location: Day Surgery Unit Vital Signs Most Recent Imported Vital Signs: Most Recent Vital Signs Temp Pulse Resp BP Pulse Ox 36.1 C L 89 22 136/66 97 12/21/20 14:37 12/21/20 14:37 12/21/20 14:37 12/21/20 14:37 12/21/20 14:37 Pain Score Most Recent Pain Score: Most Recent Pain Score Pain Level 1 12/21/20 14:37 Assessment Mental Status: Awake (Alert & Oriented to Patient Baseline) Airway and Respiratory Function: Patent airway with normal (patient baseline) respiratory exam Cardiovascular Function: Hemodynamically Stable Hydration Status: Adequately Hydrated Nausea & Vomiting: No Nausea or Vomiting Pain: Pt. Denies Any Pain Peripheral Nerve Block: Regional nerve block not resolved at time of post operative discharge
--- NOTE | 2020-12-21 21:56 | ROE_ITS ---
Date of service: 12/21/20 Time of Service: 11:56 Operative Note Operative Note DATE OF PROCEDURE: 12/21/20 PRE-OP DIAGNOSIS: Right Knee Osteoarthritis POST-OP DIAGNOSIS: same PROCEDURE: Right Total Knee Replacement SURGEON: Tano Cartwright [employer] SUPERVISOR: Ari Chance ANESTHESIA TYPE: Spinal Refer to Anesthesia Record ESTIMATED BLOOD LOSS: 200 PATHOLOGY: none sent TOURNIQUET TIME: 30 COMPLICATIONS: None Patient was transported to: PACU Patient's condition: stable Implants: 1. Depuy Attune Cruciate Retaining Femoral Component, Size 4 2. Depuy Attune Rotating Platform Tibial Component, Size 4 3. Depuy Attune 4x7mm CR,RP Poly 4. Depuy Attune Patellar Component, Size 35 Indications: I have seen Brittni in clinic for symptoms of knee arthritis, confirmed with radiographic findings. Brittni has exhausted nonoperative methods and was having significant limitations in daily function and desired better function and less pain. I discussed the technical details of a knee replacement. I explained the risks of the procedure to include, but not limited to, bleeding, infection, pain, stiffness, fracture, damage to nerves and vessels, damage to muscles and tendons, loosening, need for repeat procedure, blood clot and cardiopulmonary demise. Despite these risks, she elected to proceed. Findings: There was significant signs of arthritis throughout the knee involving all 3 compartments, but mostly of the medial compartment. Procedure Description: Brittni was greeted in the preoperative holding area where the correct side was identified and marked. The consent was reviewed with the patient and signed. The history and physical was updated. All questions were answered. Preoperative mediacations were administered: Acetaminophen 1000mg, Celebrex 400mg, and Gabapentin 300mg. An adductor canal block was then administered by the anesthesia team in the PACU. She was taken back to the operating room. A spinal anesthestic was then administered. The patient was placed into the supine position on the operating room table. A nonsterile tourniquet was placed high onto the leg but only used for cementing. Posts were placed for positioning during the procedure. All bony prominences were well padded. Prophylactic antibiotics in the form of Cefazolin were administered. 1g of Tranxemic Acid was given intravenously within 30 minutes of incision. The right leg was then prepped with Chloraprep and draped in a standard fashion with impervious stockinette and extremity drape. A second prep with Chloraprep was performed prior to placing Ioband. A timeout to confirm correct identity, side and site, procedure, allergies, anesthesia, and medical concerns was performed. With the knee in some flexion, a midline incision was made overlying the knee. Full thickness skin flaps were raised once the extensor mechanism was encountered. These were raised medially and laterally. Any bleeding was controlled with electrocautery. Once the extensor mechanism was fully exposed, a medial parapatellar arthrotomy was performed in a flexed position. All bleeding from the arthrotomy and the geniculate arteries was coagulated. A medial subperiosteal peel was performed with electrocautery to the midcoronal plane. Due to the significant varus deformity the entire medial tibial plateau was exposed. The fat pad was removed while keeping the patellar tendon protected. The anterior distal femur synovium was removed for later visualization. The ACL and PCL were resected and the anterior horn of the lateral meniscus was transected. The knee was then flexed with the patella everted. Large osteophytes from the tibia were removed. Large osteophytes from the femur were removed. Using a step drill, and based on preoperative templating, the femoral canal was entered. This was done with a step drill without any difficulty. The intramedullary distal femoral cut guide was inserted, set to a 5 degree valgus cut and 10mm cut thickness. The distal femoral cut guide was then held in position and pinned. With the soft tissues protected, the distal cut was performed. This was passed over a few times to ensure a planar cut. I then turned attention to the tibia. The extramedullary guide was placed onto the leg. The distal aspect was slid medial to adjust for position of center of ankle and stay in line with shaft of the tibia. Approximately 3-5 degrees of posterior slope was kept in the proximal cutting guide. The center of the guide was aligned with the PCL. The stylus was used to assess cut thickness. The medial side, most involved side, was set for a 3mm cut which corresponded to 9mm laterally. This was then held in position and pinned into place with 2 additional pins and a cross pin for stability. The medial and lateral collateral ligaments were protected and the cut was performed. With this completed, it was assessed and noted to be of appropriate dimensions. The guide was removed. A spacer block was inserted and the knee was brought into extension. The 6mm spacer block provided full extension, without hyperextension and with stability of both the medial and lateral collateral ligaments was assessed. The pins from the femur and the tibia were then removed. The distal femur was then sized. The anterior stylus was placed onto the lateral ridge of the anterior femur. This indicated a size 4 femur. The external rotation of the guide was adjusted to 3 degrees to match the epicondylar axis, perpendicular to Christy?s line. The 4-in-1 cutting guide was the placed. The posterior medial femur cut was evaluated and appeared of good thickness. The spacer block was inserted underneath the cutting guide and stability was confirmed in 90 degrees of flexion. An bill wing was used to con firm appropriate position of the anterior cut to avoid notching. This cutting guide was ensured to be flush on the cut surface and then pinned into place with headed pins. While protecting the soft tissues, quad tendon, and collateral ligaments, the anterior and posterior cuts were performed with a saw. The central two pins were removed and the posterior and anterior chamfers were cut next. The notch-cutting guide was placed. This was pinned to lateralize the femoral component as much as possible while keeping it flush on the cut surface. This was then pinned into position. A reciprocating saw was used to make the small notch cut. A trial CR femoral component was then inserted, impacted down to the cut surfaces, and the lug holes were drilled. A provisional trial tibial component was placed and the knee was brought through range of motion. The polyethylene was trialed until there was good flexion and extension with excellent stability to the medial and lateral collaterals. The patella was tracking without thumbs. The tibial cut surface was fully exposed. The medial and lateral menisci were removed. The tibia was then sized as a 4. The tibia had been previously marked during trialing to correspond to the center of the tibial component to help with rotation. The trial was aligned to this ari, approximately rotated to the medial 1/3rd of the tibial tubercle. The trial was pinned into place. The tibia was prepared with a reamer and a keel punch. The knee was then brought into extension and the patella was measured as 22mm. Using the patellar clamp and cut guide, this was resected to a flat surface with at least 13mm of thickness remaining. The size 35 patella fit the best. This was oriented and then clamped into position. The lugs were drilled. The trial components were removed. The final components, except for the polyethylene were opened on the back table. The periosteal and capsular tissues, especially posteriorly, around the knee were then systematically injected with a periarticular cocktail consisting of 50cc 0.25% Marcaine, 30mg Ketorolac, 20cc of Exparal and 50cc of injectable saline. The tourniquet was then inflated to 275mmHg. The knee was thoroughly irrigated with a pulse lavage and dried. On the back table, with the implants opened, the cement was mixed. 2 batches of medium viscosity cement were prepared with vacuum assistance. After the cement was ready it was placed on to the back side of the tibial component. A small amount was placed onto the posterior flange of the femur. Cement was manual pressurized and impregnated into the cut surface of the tibia. The tibial component was then inserted into the cut surface and impacted into position. Excess cement was removed and the component was reimpacted. Again, excess cement was removed and our attention was then turned to the femur. The femoral cut surface was once again dried and cement was manually impacted into the cut surface. The femoral component was lined with the lug holes and impacted. Excess cement was removed. It was ensured to be down against the cut surface. The trial polyethylene was then inserted and the leg was brought out into full extension for the duration of the cement curing process, approximately 18min. Cement was lastly manually impacted into the cut surface of the patella and the patellar button was clamped into position and held. During this process attention was turned to the gutters of the knee and for all interfaces for any excess cement. While the cement was hardening, the knee was irrigated with Ir risept chlorhexadine solution. It was allowed to sit in the knee for 3 minutes. After the cement had finally cured, approximately 18min, the clamp was removed from the patella and the knee was taken through range of motion. A size 7mm polyethylene component provided the best range of motion and stability with less than 2mm gapping with medial and lateral stress and full extension without significant hyperextension. The patella was tracking with a no-thumbs technique. The trial poly was removed and once again the knee was checked for any loose, excess, or errant cement. The poly component was then inserted into position after cleaning and drying the tibial tray. The capsule was then reapproximated with a No. 1 Vicryl at multiple locations. The capsule was finally closed with a No. 2 Stratafix, barbed suture. The tourniquet was then released and the arthrotomy appeared watertight without significant bleeding. The second dosing of 1g TXA was started. Deep tissues were then reapproximated with 0 Vicryl and 2-0 Vicryl. The skin was closed with a running 3-0 Monocryl in a subcuticular fashion. This was reinforced with skin glue. A Mepilex silver dressing was applied along with a ppbi-py-bgoet PAM wrap. A CryoCuff was applied. Brittni was transferred to the stretcher without difficulty an suffering no apparent complication. Brittni has a good prognosis. Physical therapy will start today and without restrictions, weight-bearing as tolerated. Aspirin 81mg BID will be used for DVT prophylaxis.
== END 2020-12-21 15:50 | disposition home or self-care (01) ==
LOC: SUR 08:17
PROVIDERS: PCP Nurse Practitioner; Visit Provider Student in an Organized Health Care Education/Training Program
PROC: (CPT 27447; principal; 2020-12-21 10:45)
DX: M17.11 Unilateral primary osteoarthritis, right knee (principal); M25.561 Pain in right knee; Z96.651 Presence of right artificial knee joint; G89.18 Other acute postprocedural pain
CPT/HCPCS: 27447; C1776; 76942; 97162; 97530; J0690; J1885; J2001; J2250

== ENCOUNTER 2021-01-06 15:25 | Outpatient (CLI) | payer MEDICARE, SELFPAY ==
--- NOTE | 2021-01-06 10:00 | DI.RAD_ITS ---
Exam(s) XR KNEE RT 1V EXAM: XR KNEE RT 1V CLINICAL HISTORY: 1st post op R TKA. TECHNIQUE: 2D digital imaging was performed. COMPARISON: CR XR KNEE RT 1V from 11/22/2020 FINDINGS: There has been interval placement of a prosthesis. Components are in satisfactory position alignment on this lateral view. No fracture or loosening evident. IMPRESSION: DATA REPOSITORY: RADIATION DOSE DELIVERED:
--- NOTE | 2021-01-06 10:00 | DI.RAD_ITS ---
Exam(s) XR STANDING ALIGNMENT EXAM: XR STANDING ALIGNMENT CLINICAL HISTORY: 1ST POST OP R TKA. TECHNIQUE: 2D digital imaging was performed. COMPARISON: CR XR STANDING ALIGNMENT from 11/22/2020 FINDINGS: There has been interval placement of a right knee prosthesis. Components appears satisfactory positi on alignment. No fracture or loosening evident. Moderate degenerative changes in the opposite-left knee again noted. Hips appear unremarkable with the exception of calcification measuring 5 x 3 vinh meters located just lateral to the greater trochanter of the right hip, probably calcific tendinitis / bursitis. Some narrowing of the medial aspect of the left ankle joint is noted. No osteochondral defects of th e talar dome. No degenerative subarticular cysts seen. IMPRESSION: DATA REPOSITORY: RADIATION DOSE DELIVERED:
== END 2021-01-06 15:26 | disposition home or self-care (01) ==
LOC: DIORS 15:27
PROVIDERS: PCP Nurse Practitioner; Referring Provider Nurse Practitioner; Visit Provider Physician Assistant Surgical
DX: Z47.1 Aftercare following joint replacement surgery (principal); Z96.651 Presence of right artificial knee joint; M17.12 Unilateral primary osteoarthritis, left knee
CPT/HCPCS: 73560; 77073

== ENCOUNTER → 2021-02-03 10:41 | Outpatient (BNVA) | payer MEDICARE, SELFPAY | PROVIDERS: PCP Nurse Practitioner; Referring Provider Nurse Practitioner; Visit Provider Physician Assistant | DX: Z47.1 Aftercare following joint replacement surgery (principal); Z96.651 Presence of right artificial knee joint ==

== ENCOUNTER → 2021-03-18 09:41 | Outpatient (BNVA) | payer MEDICARE, SELFPAY | PROVIDERS: PCP Nurse Practitioner; Referring Provider Nurse Practitioner; Visit Provider Student in an Organized Health Care Education/Training Program | DX: Z47.1 Aftercare following joint replacement surgery (principal); Z96.651 Presence of right artificial knee joint ==

== ENCOUNTER → 2021-11-30 00:25 | Outpatient (CLI) | payer MEDICARE, SELFPAY ==
--- NOTE | 2021-11-30 | DI.CT_ITS ---
Exam(s) CT ABDOMEN PELVIS W EXAM: CT ABDOMEN PELVIS W CLINICAL HISTORY: UTERINE/CERVICAL/ENDOMETRIAL CA MONITORING, C54.1. TECHNIQUE: Imaging Protocol: Axial computed tomography images with coronal and sagittal reformatted images were created and reviewed CONTRAST MATERIAL: Intravenous: Omnipaque 100cc Oral: Yes. Oral contrast was administered for bowel opacification. COMPARISON: CT CT CHEST/ABD/PEL W from 09/26/2019 FINDINGS: VISUALIZED LUNG BASES: The uppermost image of this abdominal study reveals a partially included nonca lcified small pleural base nodule in the right lower lobe, posteriorly, measuring 4 x 3 millimeters. No other findings in the visualized lung bases and there are no pleural effusions.. ABDOMEN: There is no ascites. LIVER: There are no focal hepatic lesions evident . GALLBLADDER/BILIARY: Gallbladder not seen and is presumed to be surgically absent (no clips). CBD di ameters slightly prominent. PANCREAS: No evidence of pancreatic mass nor dilatation of the pancreatic duct. SPLEEN: Spleen is not enlarged. No obvious intrasplenic lesions. Splenic and portal veins are paten t. ADRENALS: There are no significant adrenal masses. KIDNEYS:There is a small 7 x 7 millimeters cyst in the superior pole of the left kidney. No solid re nal masses. No calculi nor hydronephrosis.. ABDOMINAL AORTA: Abdominal aorta is not enlarged. LYMPH NODES:There is no retroperitoneal nor paraaortic adenopathy. ABDOMINAL WALL: No evidence of significant anterior abdominal wall nor inguinal hernia. GI: There is no evidence of bowel obstruction, free air, nor abscess. PELVIS: GI: No evidence of appendicitis.No evidence of sigmoid diverticulitis.Previously described collection lateral to the descending left colon has resolved. LYMPH NODES: There is no intrapelvic nor inguinal adenopathy. REPRODUCTIVE: Uterus is surgically absent. There are no abnormal adnexal masses. URINARY BLADDER: No calculi nor obvious masses evident OSSEOUS: No significant osseous lesions. IMPRESSION: 1. Compared to the prior CT scan of 09/26/2019 the previously described bilobed mass adjacent to the descending colon is no longer seen. 2. There diverticuli in the descending and sigmoid colon but no evidence of acute diverticulitis, caron e fluid, free air, nor abscess. 3. Uterus is again noted be surgically absent. No abnormal tissue in this region. No free fluid. N o adnexal masses. 4. The uppermost image of this abdominal study reveals a pleural based partially included 4 millimete r nodule in the posterior aspect of the right lower lobe, possibly significant RADIATION DOSE DELIVERED: 1,735.56mGy.cm Total DLP DATA REPOSITORY: All CT scans at this facility are submitted to the National Radiology Data Registry (NRDR) Dose Index Registry (DIR) with the [employer] (A[employer]). RADIATION OPTIMIZATION: All CT scans at this facility use at least one of these dose optimization te chniques: automated exposure control; mA and/or kV adjustment per patient size (includes targeted exa ms where dose is matched to clinical indication); or iterative reconstruction.
[2021-11-30] MEDS: Breeza Beverage 473 ML BTL PO ×2 (10:09→10:10)
[2021-11-30] MEDS: Omnipaque 350 MG/ML 50 ML BTL IJ (10:09)
[2021-11-30] MEDS: Omnipaque 350 MG/ML 100 ML BTL IJ (11:41)
== END ==
PROVIDERS: PCP Nurse Practitioner; Visit Provider Nurse Practitioner Family
DX: C54.1 Malignant neoplasm of endometrium (principal); R91.1 Solitary pulmonary nodule; N28.1 Cyst of kidney, acquired; Z90.710 Acquired absence of both cervix and uterus
CPT/HCPCS: 36415; 80053; 80061; 85027; 74177; 83036; 84443; J3490; Q9967

== ENCOUNTER 2021-11-30 03:04 | Outpatient (CLI) | payer MEDICARE, SELFPAY ==
[2021-11-30 09:47] LABS: HCT 40.4 % (36.0-46.0); HGB 12.9 g/dL (11.2-15.7); MCH 28.8 pg (27.0-33.0); MCHC 31.9 % (32.0-36.0); MCV 90.2 fL (80-95); MPV 10.6 fL (8.0-11.0); Platelet Count 245 10^3/uL (130-400); RBC 4.48 10^6/uL (3.93-5.22); RDW 14.3 % (11.7-14.6); RDW-SD 47.8 fL
[2021-11-30 09:58] LABS: Hemoglobin A1C 6.1 % (<5.7)
[2021-11-30 10:47] LABS: ALT 26 U/L (14-59); AST 18 U/L (15-37); Alkaline Phosphatase 123 U/L (46-116); Anion Gap 9.3 mmol/L (3-11); BUN 18 mg/dL (7-18); Bilirubin, Total 0.4 mg/dL (0.2-1.0); CO2 28.7 mmol/L (21.0-32.0); CREATININE 0.7 mg/dL (0.55-1.02); Calcium 9.7 mg/dL (8.5-10.1); Calculated LDL 106 mg/dL (<100); Chloride 103 mmol/L (98-107); Cholesterol 203 mg/dL (<200); Glucose 104 mg/dL (74-106); HDL Cholesterol 74 mg/dL (40-60); Potassium 3.9 mmol/L (3.5-5.1); Sodium 141 mmol/L (136-145); TSH (W/Ref FT4) 1.99 uIU/mL (0.36-3.74); Total Protein 7.4 g/dL (6.4-8.2); Triglyceride 119 mg/dL (<150)
== END 2021-11-30 03:05 | disposition home or self-care (01) ==
LOC: LBO 03:04
PROVIDERS: PCP Nurse Practitioner; Visit Provider Nurse Practitioner
DX: I10 Essential (primary) hypertension (principal); R73.03 Prediabetes; E03.9 Hypothyroidism, unspecified; K59.00 Constipation, unspecified; E66.8 Other obesity
CPT/HCPCS: 36415; 80053; 80061; 85027; 83036; 84443

== ENCOUNTER 2021-12-20 06:21 | Outpatient (CLI) | payer MEDICARE, SELFPAY ==
--- NOTE | 2021-12-20 14:34 | W.NUTCONSULT ---
Date of service: 12/20/21 Time of Service: 14:35 Nutritional Consult ASSESSMENT: Brittni was referred for weight management education with PMH: prediabetes, HTN, HLD with hx of uterine CA with radiation 2019. 4'11 228 lbs BMI: 46 Most recent Labs(11/30/21) A1C: 6.1%, Chol: 203, LDL: 106, HDL: 74. Diet Recall: eggs and le, baked beans, meat, potato, salad. Follows mostly gluten free diet. Most meals home made. Exericse: none routine but uses her [employer], [employer], likes to walk outside. NUTRITIONAL DIAGNOSIS: class 3 obesity INTERVENTION: Educated Brittni on how to follow a lower carb diet with emphasis on lean protein and non starchy vegetables. Encouraged 10% weight loss by limiting carbs and increasing activity by walking or using home exercise equipment. Overall, Brittni has had a very hard last 2 years with her disabled son passing away, getting treated for cancer, covid 19 and most recently, her was dx with cancer and receiving treatment. As her routine begins to normalize again, she hopes to have more time to care for herself. MONITORING AND EVALUATION: no follow up planned at this time. Time Spent in Nutritional Counseling and Treatment: 30
== END 2021-12-20 06:22 | disposition home or self-care (01) ==
LOC: DS 06:21
PROVIDERS: PCP Nurse Practitioner; Visit Provider Dietitian, Registered

== ENCOUNTER 2021-12-26 10:26 | Outpatient (CLI) | payer MEDICARE, SELFPAY ==
--- NOTE | 2021-12-26 10:15 | DI.RAD_ITS ---
Exam(s) XR KNEE RT 2V AP,LAT EXAM: XR KNEE RT 2V AP,LAT INDICATION: ANNUAL F/U R TKA. COMPARISON: CR XR KNEE RT 1V from 01/06/2021 TECHNIQUE: 2D digital imaging was performed. Two views. FINDINGS: There has been no change in total knee prosthesis or appearance of the surrounding bone. DATA REPOSITORY: RADIATION DOSE DELIVERED:
== END 2021-12-26 10:27 | disposition home or self-care (01) ==
LOC: DIORS 10:26
PROVIDERS: PCP Nurse Practitioner; Referring Provider Nurse Practitioner; Visit Provider Student in an Organized Health Care Education/Training Program
DX: Z96.651 Presence of right artificial knee joint (principal)
CPT/HCPCS: 99212; 73560

== ENCOUNTER → 2022-05-04 01:42 | Outpatient (CLI) | payer MEDICARE, SELFPAY ==
[2022-05-04 12:45] LABS: ALT 26 U/L (14-59); AST 21 U/L (15-37); Albumin 3.6 g/dL (3.4-5.0); Alkaline Phosphatase 103 U/L (46-116); Anion Gap 12.5 mmol/L (3-11); BUN 23 mg/dL (7-18); Bilirubin, Total 0.3 mg/dL (0.2-1.0); CO2 26.5 mmol/L (21.0-32.0); CREATININE 0.9 mg/dL (0.55-1.02); Calcium 9.6 mg/dL (8.5-10.1); Chloride 100 mmol/L (98-107); Estimated GFR 68.35 (mL/min/1.73m2); Glucose 100 mg/dL (74-106); Potassium 3.7 mmol/L (3.5-5.1); Sodium 139 mmol/L (136-145); Total Protein 7.6 g/dL (6.4-8.2)
[2022-05-04] MEDS: Omnipaque 350 MG/ML 100 ML BTL 70 ML IJ (13:10)
--- NOTE | 2022-05-04 13:11 | DI.CT_ITS ---
Exam(s) CT CHEST W EXAM: CT CHEST W CLINICAL HISTORY: ENDOMETRIAL CA,C54.1,INCIDENTAL LUNG NODULE ON LAST CT, ASSESS TREATMENT TECHNIQUE: Imaging Protocol: Axial computed tomography images with coronal and sagittal reformatted images were created and reviewed CONTRAST MATERIAL: Intravenous: Omnipaque 350Contrast volume:70 mL. COMPARISON: CT CT ABDOMEN PELVIS W from 11/30/2021 FINDINGS: Tracheobronchial tree: Patent where visualized. Pulmonary parenchyma: No consolidation or dominant measurable mass. No architectural distortion. Ther e is a 5 mm nodule associated with the right major fissure. There has been no change in the pleural- based 4 mm nodule in the right lower lobe. There is a 5 mm triangular shaped pleural based nodule as sociated with the left major fissure. Mediastinum and Luz [place]: No dominant adenopathy or fluid collection. The esophagus is unremarkable. Thyroid gland: Unremarkable. Pleura: No effusion or pneumothorax. Heart: The heart is not dilated. Mild coronary artery calcification. No pericardial effusion. Aorta: The ascending thoracic aorta measures 4.1 x 4.0 cm. There is mild atherosclerosis of the thor acic aorta. Pulmonary arteries: The pulmonary arteries are not adequately evaluated for evaluation of pulmonary e mboli. Upper abdomen: Unremarkable. Lymph nodes: Within normal limits. Bones: Within normal limits for the patient's age. Soft tissues: Unremarkable. IMPRESSION: 1. Stable 4 mm pleural-based right lower lobe pulmonary nodule. Two perifissural triangular shaped n odules. For high risk patients (history of smoking or other risk factors), 12 month follow-up CT sca n is recommended. (Alcides et al, 2017). 2. No acute pulmonary process. RADIATION DOSE DELIVERED: 719.74mGy.cm Total DLP DATA REPOSITORY: All CT scans at this facility are submitted to the National Radiology Data Registry (NRDR) Dose Index Registry (DIR) with the [employer] (ACR). RADIATION OPTIMIZATION: All CT scans at this facility use at least one of these dose optimization te chniques: automated exposure control; mA and/or kV adjustment per patient size (includes targeted exa ms where dose is matched to clinical indication); or iterative reconstruction.
[2022-05-05 08:46] LABS: CA 125 7 U/mL (<30)
== END ==
PROVIDERS: PCP Nurse Practitioner; Visit Provider Nurse Practitioner Family
DX: C54.1 Malignant neoplasm of endometrium (principal); R91.1 Solitary pulmonary nodule
CPT/HCPCS: 80053; 86304; 71260; J3490

== ENCOUNTER → 2022-09-11 11:17 | Outpatient (BNVA) | payer MEDICARE, SELFPAY | PROVIDERS: PCP Nurse Practitioner; Referring Provider Nurse Practitioner; Visit Provider Physical Therapy Assistant | DX: Z12.11 Encounter for screening for malignant neoplasm of colon (principal) ==

== ENCOUNTER 2022-09-28 08:10 | Day surgery (SDC) | payer MEDICARE, SELFPAY ==
--- NOTE | 2022-09-27 21:23 | W.PM.DSUDISC ---
Date of service: 09/28/22 Time of Service: 10:33 Discharge Plan Disposition Patient Disposition: Home Condition: Good Discharge Details Reason For Visit: Screening colonoscopy Attending Provider: Willie Vázquze Primary Care Provider: Ann Choi Home Meds and New Rx's Prescriptions: Continued docusate sodium [Stool Softener] 100 mg tablet 100 mg PO BID Qty: 100 6RF pramoxine [Sarna Sensitive] 1 % lotion 1 applic topical BID Qty: 222 0RF Rx Instructions: Trial, use on arms in between triamcinalone application, x 2 weeks famotidine [Pepcid] 20 mg tablet 20 mg PO DAILY Qty: 90 3RF acetaminophen 325 mg tablet 325 mg PO Q4H PRN fluticasone propionate 50 mcg/actuation spray,suspension 2 spray intranasal DAILY Qty: 16 6RF Rx Instructions: administer into each nostril hydrochlorothiazide 25 mg tablet 25 mg PO DAILY Qty: 90 3RF levothyroxine 75 mcg tablet 75 mcg PO DAILY Qty: 90 3RF losartan 25 mg tablet 25 mg PO DAILY Qty: 90 3RF Rx Instructions: [facility], former pcp office. [place] lovastatin 40 mg tablet 40 mg PO QPM Qty: 90 3RF cholecalciferol (vitamin D3) [Vitamin D3] 25 mcg (1,000 unit) tablet 1,000 unit PO DAILY Discontinued bisacodyl [Dulcolax (bisacodyl)] 5 mg tablet,delayed release (DR/EC) 5 mg PO ONCE Qty: 4 0RF Rx Instructions: Take according to provider's instructions for colonoscopy prep. polyethylene glycol 3350 17 gram/dose powder 17 g PO ONCE Qty: 238 0RF Rx Instructions: To be taken as directed by prescriber's office for colonoscopy prep. Discharge Instructions Instructions: Hemorrhoids (GEN), Rectal Bleeding (GEN), Diverticulosis (DC), Diverticulosis Diet (GEN) Additional Instructions: 1. If tolerated, consume a soft, low fiber diet for 1-2 days. 2[address] Do not drive, drink alcohol, operate machinery, make critical decisions, or do activities that require coordination or balance for 24 hours. 3. Because air was put into your colon during the procedure, expelling air from your rectum (passing gas or farting) is normal. 4. You may not have a bowel movement for 1-3 days because of the colonoscopy prep. This is normal. 5. Go directly to the emergency room if you notice any of the following: Develop chills (warm to touch), or if you have a thermometer and your temperature is above 101 Difficulty breathing or difficultly swallowing Persistent vomiting Severe abdominal pain, other than gas cramps Severe chest pain Black, tarry stools Any bleeding ? exceeding one tablespoon 6. Call your physician if the site where your intravenous was started becomes red, swollen, painful, and warm to touch. 7. Your physician has reviewed your pre-procedure medications. Please continue to take those medications as previously ordered. You will be given specific information/education regarding any changes to your medications before leaving. Activity:: Activity as Tolerated Diet:: As Tolerated Discharge Orders Discharge Orders: Discharge Order (Routine); Ordered 09/27/22 Ordered By: Willie Vázquez DS: Diagnosis Discharge Diagnosis (1) Screening for colon cancer: Status: Acute Asessment and Plan: There is no signs of any malignancy, or colon polyps She has mild scattered colonic diverticulosis Grade 1 internal hemorrhoids
--- NOTE | 2022-09-27 21:25 | W.COLOREPORT ---
Date of service: 09/28/22 Time of Service: 10:35 Colonoscopy Report Date of procedure: 09/28/22 Pre-op diagnosis general: Screening colonoscopy Post-op diagnosis procedure note: other (Grade 1 internal hemorrhoids, diverticulosis) Procedure: Colonoscopy Surgeon: Willie Vázquez Anesthesia Type: General:No Airway Estimated blood loss (mL): 0 Pathology: none sent Complications: None Disposition: same day Indications: Brittni is a 71-year-old woman following up with her next screening colonoscopy as part of routine health maintenance. Prep: Miralax/Dulcolax Procedure Start Time: 10:04 Procedure End Time: :22 Retraction Time: 12 Findings: Rare scattered colonic diverticulosis. Grade 1 internal hemorrhoids Procedure Description: After the induction of monitored anesthetic care, and with the patient in left lateral decubitus position, I began by performing an external anorectal exam.? Perineum and skin were normal, as was the anal verge.? There was no evidence of external hemorrhoids.? Next, I performed a digital rectal exam.? I did appreciate any abnormal findings.? Next, I advanced a colonoscope into the rectal vault.? I performed retroflexion.? There is grade 1 internal hemorrhoids.? Using insufflation, I then advanced the colonoscope beyond the rectal folds and into the sigmoid colon before advancing towards the cecum.? The quality of the prep was excellent.? The scope was noted to be in the cecum by identification of the ileocecal valve and appendiceal orifice.? I then began withdrawing the colonoscope using repeated irrigation as necessary for full evaluation of the colonic mucosa. There were rare, scattered colonic diverticulosis. ?Once the scope was withdrawn to the level of the rectum, great care was taken to examine portions of the rectal folds.? Finally, the scope was withdrawn and the patient was brought to the same-day surgery recovery unit as the anesthetic wore off. ?The findings and instructions were shared with the patient prior to discharge.
[2022-09-28 08:15] VITALS: BP 154/81; PULSE 84; RESP 16; TEMP 36; O2SAT 100
[2022-09-28] MEDS: Lactated Ringers 1,000 ML 80 ML IV (08:50)
--- NOTE | 2022-09-28 08:53 | W.ANESPRE ---
General Info Date of Service Date Performed: 09/28/22 Height: 4 ft 11 in Weight: 101.8 kg Body Mass Index (BMI): 45.3 Surgical Procedure: Operation Date: 09/28/22 09:50 Proposed Procedure Side Surgeon temitope Vázquez MD Meds Allergies and Home Medications Allergies Allergy/AdvReac Type Severity Reaction Status Date / Time penicillin V Allergy Intermediate Rash, fever Verified 09/28/22 08:34 hydralazine AdvReac Unknown Headache/ Verified 09/28/22 08:34 cough Dust, Mold, Pollen Allergy Unknown Uncoded 09/28/22 08:34 Home Medication Medication Instructions Recorded cholecalciferol (vitamin D3) 25 1,000 unit PO DAILY 11/19/19 mcg (1,000 unit) tablet (Vitamin D3) docusate sodium 100 mg tablet 100 mg PO BID #100 tab-caps 03/16/20 (Stool Softener) acetaminophen 325 mg tablet 325 mg PO Q4H PRN 03/15/21 pramoxine 1 % lotion (Sarna 1 applic topical BID #222 mL 05/05/21 Sensitive) fluticasone propionate 50 2 spray intranasal DAILY #16 grams 03/14/22 mcg/actuation nasal spray,suspension hydrochlorothiazide 25 mg tablet 25 mg PO DAILY #90 tab-caps 03/14/22 levothyroxine 75 mcg tablet 75 mcg PO DAILY #90 tab-caps 03/14/22 losartan 25 mg tablet 25 mg PO DAILY #90 tab-caps 03/14/22 lovastatin 40 mg tablet 40 mg PO QPM #90 tabs 03/14/22 famotidine 20 mg tablet (Pepcid) 20 mg PO DAILY #90 tabs 09/07/22 Current Visit Medications: Current Medications Generic Name Dose Route Start Last Admin Trade Name Freq PRN Reason Stop Dose Admin Hyoscyamine Sulfate 0.125 mg 09/27/22 21:26 Hyoscyamine 0.125 Mg Sl/Oral/Chew SL DIRECTED PRN Ringer's Solution 1,000 mls @ 80 mls/hr 09/28/22 06:00 09/28/22 08:50 IV 10/27/22 23:59 80 mls/hr INFUSION KIERAN Administration IV Miscellaneous Supplies 1 each 09/28/22 06:00 Iv Access IV 10/27/22 23:59 DIRECTED KIERAN Ondansetron HCl 4 mg 09/27/22 21:26 Ondansetron 4 Mg/2 Ml Vial IVP Q4H PRN PRN Nausea / Vomiting Sodium Chloride 0 ml 09/28/22 06:00 Normal Saline Flush 10 Ml Syr IV 10/27/22 23:59 PRN PRN Sodium Chloride 0 ml 09/28/22 06:00 Normal Saline 10 Ml Vial IJ 10/27/22 23:59 DIRECTED PRN Sterile Water 0 ml 09/28/22 06:00 Water,Injection,Sterile 10 Ml Vial IJ 10/27/22 23:59 DIRECTED PRN PFSH Active Problems Active Problems: Problem Status Onset Code Screening for colon cancer Z12.11 Morbid obesity with body mass index of 45.0-49.9 in adult E66.01, Z68.42 Hypothyroidism E03.9 Mite infestation B88.9 Itching L29.9 Rash R21 Snoring R06.83 Hypertrophic toenail L60.2 History of total right knee replacement 12/21/20 Z96.651 Constipation 04/08/18 K59.00 Essential hypertension 06/07/17 I10 Gastroesophageal reflux disease without esophagitis 04/08/18 K21.9 Hypothyroidism 06/07/17 E03.9 Obesity 10/08/17 E66.9 Pre-diabetes 06/07/17 R73.03 Primary osteoarthritis of both knees 06/07/17 M17.0 Pure hypercholesterolemia 06/07/17 E78.00 Headache 06/07/17 R51 Gout 06/07/17 M10.9 Post-menopausal bleeding N95.0 Cervical stenosis (uterine cervix) N88.2 S/P dilatation and curettage Z98.890 Endometrial carcinoma Medicare annual wellness visit, subsequent Z00.00 Osteoarthritis of right knee M17.11 Osteoarthritis of left knee M17.12 Flat feet, bilateral M21.41, M21.42 Medical History Medical History Difficult intravenous access GERD (gastroesophageal reflux disease) Hiatal hernia High cholesterol HTN (hypertension) Hyperthyroidism pt. denies this Osteoarthritis Vertigo Surgical History Surgical History Appendectomy Cholecystectomy History of colonoscopy History of dilatation and curettage Ligation of fallopian tube Status post hysterectomy with oophorectomy (08/14/19) 08/14/19- [facility] [place] robotic hysterectomy/BSO with sentinel lymph node biopsies. Tobacco Smoking/Tobacco Use Status: Never Alcohol Alcohol Intake: current Alcohol intake frequency: holidays/special occasions only Alcohol type: wine and other Substance Use Substance use: Never Substance use type: does not use Vital Signs and Lab Results Vital Signs Most Recent Vital Signs in EMR: Most Recent Vital Signs Temp Pulse Resp BP Pulse Ox 36 C L 84 16 154/81 H 100 09/28/22 08:15 09/28/22 08:15 09/28/22 08:15 09/28/22 08:15 09/28/22 08:15 Lab Results Blood Type / Crossmatch: No Data to Display Complete Blood Count: No Data to Display Complete Metabolic Panel: Hemoglobin A1c 6.0 % (4.5-5.7) H 09/07/22 10:50 Liver Function Panel: No Data to Display Coagulation Panel: No Data to Display Cardiac Panel: No Data to Display Arterial Blood Gas: No Data to Display Venous Blood Gas: No Data to Display Pancreas Panel: No Data to Display Thyroid Panel: No Data to Display Infectious Disease: No Data to Display Blood Cultures: No Data to Display Toxicology Panel: No Data to Display Anesthesia Assessment and Plan Anesthesia History Personal History: No History of Anesthesia Complications Family History: No Family History of Anesthesia Complications Exercise Tolerance Exercise Tolerance: Metabolic Equivalents>4 Pertinent Negatives Pertinent Negatives: No Symptoms of GERD (Well controlled with famotidine), No Major Cardiovascular Symptoms or Complaints and No Major Pulmonary Symptoms or Complaints Cardiac & Pulmonary Exam Cardiac Exam: Normal S1/S2 Heart Sounds Pulmonary Exam: Clear Bilateral Breath Sounds Implantable Cardiac Device Does patient have a Pacemaker or an ICD?: No Airway Exam Known Difficult Airway: No Mallampati Class: 2 Mouth Opening: Normal (> 3cm) Thyromental Distance: Greater than 3 cm Neck Range of Motion: Full ROM Neck Circumference: Thick Teeth Condition: Normal Dentition (Some missing, none loose per patient ) and Other (Top front tooth chipped) ASA Classification ASA Score: ASA 3 Emergency Case?: No NPO Status NPO Status: NPO Clears >2 hours, Solids >8 hours Anesthesia Plan Resuscitation Status: Full Code Anesthesia Technique: General Anesthesia Airway Planned: Natural Airway Monitors Used: Standard Monitors
[2022-09-28 09:09] VITALS: BMI 45.3
[2022-09-28 10:30] VITALS: BP 124/79; PULSE 67; RESP 16; TEMP 36.2; O2SAT 98
[2022-09-28 11:03] VITALS: BP 132/67; PULSE 72; RESP 18; TEMP 36.1; O2SAT 98
--- NOTE | 2022-09-28 13:21 | W.ANESPOSTOP ---
Postoperative Evaluation Date, Time and Location Date Performed: 09/28/22 Time Performed: 11:05 Patient Location: Day Surgery Unit Vital Signs Most Recent Imported Vital Signs: Most Recent Vital Signs Temp Pulse Resp BP Pulse Ox 36.1 C L 72 18 132/67 98 09/28/22 11:03 09/28/22 11:03 09/28/22 11:03 09/28/22 11:03 09/28/22 11:03 Pain Score Most Recent Pain Score: Most Recent Pain Score Pain Level 0 09/28/22 11:03 Assessment Mental Status: Awake (Alert & Oriented to Patient Baseline) Airway and Respiratory Function: Patent airway with normal (patient baseline) respiratory exam Cardiovascular Function: Hemodynamically Stable Hydration Status: Adequately Hydrated Nausea & Vomiting: No Nausea or Vomiting Pain: Pt. Denies Any Pain Peripheral Nerve Block: Patient did not receive a nerve block
== END 2022-09-28 11:22 | disposition home or self-care (01) ==
PROVIDERS: PCP Nurse Practitioner; Visit Provider Surgery
PROC: 0DJD8ZZ Inspection of Lower Intestinal Tract, Via Natural or Artificial Opening Endoscopic (ICD-10-PCS; CPT 45378; principal; 2022-09-28 09:45)
DX: Z12.11 Encounter for screening for malignant neoplasm of colon (principal); K64.0 First degree hemorrhoids; K57.30 Diverticulosis of large intestine without perforation or abscess without bleeding
CPT/HCPCS: G0121; J2405

== ENCOUNTER 2022-10-05 00:48 | Outpatient (CLI) | payer MEDICARE, SELFPAY ==
--- NOTE | 2022-10-05 08:00 | DI.MAMMO_ITS ---
Exam(s) MAMMO SCREENING EXAM: MAMMO SCREENING CLINICAL HISTORY: screening,z12.39. TECHNIQUE: Bilateral full field digital CC and MLO mammographic images were obtained with 3D tomosyn thesis and utilizing computer aided detection (CAD). COMPARISON: Prior mammograms were reviewed. FINDINGS: There has been no significant change in the appearance and distribution of the fibroglandular tissue. Asymmetric tissue seen inferiorly in the left breast on the MLO view is unchanged from prior mammogra ms, including identical appearance to 2015. There is also a small nodular density anteriorly in the left breast seen on the CC view which is also unchanged from all prior mammograms. There are no new spiculated masses nor new malignant appearing microcalcification groups. There is no significant architectural distortion nor skin thickening-retraction. IMPRESSION: No radiographic evidence of malignancy. Stable benign-appearing findings. BI-RADS Category 2 - Benign Findings Breast Density - Category B - Scattered areas of fibroglandular density Breast density Category C or D implies that the patient has dense breast tissue. Dense breast tissue can make it harder to find cancer on a mammogram. Dense breast tissue is also associated with an incr eased risk of breast cancer. This information about the result of the mammogram report was provided to the patient to raise their awareness. Use this report when you speak with the patient about their risks for breast cancer, which includes their family history. At that time, you may recommend additional screening tests (Ultrasoun d or MRI) as these tests may add significant information. A negative radiographic report should not delay biopsy if a dominant or clinically suspicious mass is present. Up to ten percent of cancers are not identified on mammography. A negative report may reinforce clinical impression. Adenosis and dense breasts may obscure an underlying neoplasm. False positive reports average 6 to 10%. Patient will receive a letter notifying them of these results.
== END 2022-10-05 01:08 ==
LOC: DI 00:48
PROVIDERS: PCP Nurse Practitioner; Visit Provider Nurse Practitioner
DX: Z12.31 Encounter for screening mammogram for malignant neoplasm of breast (principal)
CPT/HCPCS: 77063; 77067

== ENCOUNTER 2022-11-08 02:53 | Outpatient (CLI) | payer MEDICARE, SELFPAY ==
[2022-11-08 08:42] LABS: ALT 27 U/L (14-59); AST 15 U/L (15-37); Albumin 3.6 g/dL (3.4-5.0); Alkaline Phosphatase 110 U/L (46-116); Anion Gap 8.7 mmol/L (3-11); BUN 22 mg/dL (7-18); Bilirubin, Total 0.3 mg/dL (0.2-1.0); CO2 29.3 mmol/L (21.0-32.0); CREATININE 0.8 mg/dL (0.55-1.02); Calcium 9.8 mg/dL (8.5-10.1); Calculated LDL 116 mg/dL (<100); Chloride 104 mmol/L (98-107); Cholesterol 213 mg/dL (<200); Estimated GFR 78.24 (mL/min/1.73m2); Glucose 117 mg/dL (74-106); HDL Cholesterol 71 mg/dL (40-60); Potassium 4.3 mmol/L (3.5-5.1); Sodium 142 mmol/L (136-145); TSH (W/Ref FT4) 2.89 uIU/mL (0.36-3.74); Total Protein 7.2 g/dL (6.4-8.2); Triglyceride 133 mg/dL (<150)
== END 2022-11-08 02:54 | disposition home or self-care (01) ==
LOC: LBO 02:53
PROVIDERS: PCP Nurse Practitioner; Referring Provider Nurse Practitioner; Visit Provider Nurse Practitioner
DX: E03.9 Hypothyroidism, unspecified (principal); E78.00 Pure hypercholesterolemia, unspecified; I10 Essential (primary) hypertension; R73.03 Prediabetes; E66.8 Other obesity
CPT/HCPCS: 36415; 80053; 80061; 84443

== ENCOUNTER 2022-12-25 04:53 | Outpatient (CLI) | payer MEDICARE, SELFPAY ==
[2022-12-25 10:47] LABS: Abs Immature Grans 0.02 10^3/uL (0.0-0.06); Absolute Basophil Count 0.05 10^3/uL (0.0-0.2); Absolute Eosinophil Count 0.33 10^3/uL (0.0-0.7); Absolute Lymphocyte Count 1.56 10^3/uL (1.2-3.4); Absolute Monocyte Count 0.77 10^3/uL (0.1-0.8); Absolute Neutrophil Count 6.17 10^3/uL (1.2-6.7); Basophils % 0.6; Eosinophils % 3.7; HCT 41.3 % (36.0-46.0); HGB 13.5 g/dL (11.2-15.7); Immature Grans % 0.2; Lymphocytes % 17.5; MCH 28.9 pg (27.0-33.0); MCHC 32.7 % (32.0-36.0); MCV 88 fL (80-95); MPV 10.4 fL (8.0-11.0); Monocytes % 8.7; Neutrophils % 69.3; Platelet Count 278 10^3/uL (130-400); RBC 4.67 10^6/uL (3.93-5.22); RDW 14.1 % (11.7-14.6); RDW-SD 45.3 fL
== END 2022-12-25 04:54 | disposition home or self-care (01) ==
PROVIDERS: PCP Nurse Practitioner; Visit Provider Obstetrics & Gynecology
DX: Z01.818 Encounter for other preprocedural examination (principal)
CPT/HCPCS: 36415; 86850; 86900; 86901; 85025

== ENCOUNTER 2022-12-28 11:16 | Day surgery (SDC) | payer MEDICARE, SELFPAY ==
--- NOTE | 2022-12-28 10:30 | ANES.PREOP_ITS ---
General Info Date of Service Date Performed: 12/28/22 Height: 4 ft 11 in Weight: 105.233 kg Body Mass Index (BMI): 46.8 Surgical Procedure: Operation Date: 12/28/22 13:55 Proposed Procedure Side Surgeon p Exam Under Anesthesia Mary Lopez DO Meds Allergies and Home Medications Allergies Allergy/AdvReac Type Severity Reaction Status Date / Time penicillin V Allergy Intermediate Rash, fever Verified 12/27/22 10:43 hydralazine AdvReac Unknown Headache/ Verified 12/27/22 10:43 cough Dust, Mold, Pollen Allergy Unknown Uncoded 12/27/22 10:43 Home Medication Medication Instructions Recorded cholecalciferol (vitamin D3) 25 1,000 unit PO DAILY 11/19/19 mcg (1,000 unit) tablet (Vitamin D3) docusate sodium 100 mg tablet 100 mg PO BID #100 tab-caps 03/16/20 (Stool Softener) acetaminophen 325 mg tablet 325 mg PO Q4H PRN 03/15/21 pramoxine 1 % lotion (Sarna 1 applic topical BID #222 mL 05/05/21 Sensitive) fluticasone propionate 50 2 spray intranasal DAILY #16 grams 03/14/22 mcg/actuation nasal spray,suspension hydrochlorothiazide 25 mg tablet 25 mg PO DAILY #90 tab-caps 03/14/22 levothyroxine 75 mcg tablet 75 mcg PO DAILY #90 tab-caps 03/14/22 losartan 25 mg tablet 25 mg PO DAILY #90 tab-caps 03/14/22 lovastatin 40 mg tablet 40 mg PO QPM #90 tabs 03/14/22 famotidine 20 mg tablet (Pepcid) 20 mg PO DAILY #90 tabs 09/07/22 I Promise 12/27/22 Current Visit Medications: Current Medications Generic Name Dose Route Start Last Admin Trade Name Freq PRN Reason Stop Dose Admin Ringer's Solution 1,000 mls @ 125 mls/hr 12/28/22 06:00 IV 01/26/23 23:59 INFUSION KIERAN IV Miscellaneous Supplies 1 each 12/28/22 06:00 Iv Access IV 01/26/23 23:59 DIRECTED KIERAN Sodium Chloride 0 ml 12/28/22 06:00 Normal Saline Flush 10 Ml Syr IV 01/26/23 23:59 PRN PRN Sodium Chloride 0 ml 12/28/22 06:00 Normal Saline 10 Ml Vial IJ 01/26/23 23:59 DIRECTED PRN Sterile Water 0 ml 12/28/22 06:00 Water,Injection,Sterile 10 Ml Vial IJ 01/26/23 23:59 DIRECTED PRN PFSH Active Problems Active Problems: Problem Status Onset Code Constipation 04/08/18 K59.00 Essential hypertension 06/07/17 I10 Gastroesophageal reflux disease without esophagitis 04/08/18 K21.9 Hypothyroidism 06/07/17 E03.9 Obesity 10/08/17 E66.9 Pre-diabetes 06/07/17 R73.03 Primary osteoarthritis of both knees 06/07/17 M17.0 Pure hypercholesterolemia 06/07/17 E78.00 Headache 06/07/17 R51 Gout 06/07/17 M10.9 Flat feet, bilateral M21.41, M21.42 Post-menopausal bleeding N95.0 Cervical stenosis (uterine cervix) N88.2 S/P dilatation and curettage Z98.890 Endometrial carcinoma Medicare annual wellness visit, subsequent Z00.00 Osteoarthritis of right knee M17.11 Osteoarthritis of left knee M17.12 Hypothyroidism E03.9 History of total right knee replacement 12/21/20 Z96.651 Hypertrophic toenail L60.2 Snoring R06.83 Rash R21 Itching L29.9 Mite infestation B88.9 Morbid obesity with body mass index of 45.0-49.9 in adult E66.01, Z68.42 Screening for colon cancer Z12.11 Vaginal bleeding N93.9 Vaginal lesion N89.8 Medical History Medical History Difficult intravenous access GERD (gastroesophageal reflux disease) Hiatal hernia High cholesterol HTN (hypertension) Hyperthyroidism pt. denies this-states HYPOthroidism Osteoarthritis Vertigo Surgical History Surgical History Appendectomy Cholecystectomy History of colonoscopy History of dilatation and curettage Ligation of fallopian tube Status post hysterectomy with oophorectomy (08/14/19) 08/14/19- [facility] [place] robotic hysterectomy/BSO with sentinel lymph node biopsies. Tobacco Smoking/Tobacco Use Status: Never Alcohol Alcohol Intake: current Alcohol intake frequency: holidays/special occasions only Alcohol type: wine and other Substance Use Substance use: Never Substance use type: does not use Vital Signs and Lab Results Lab Results Blood Type / Crossmatch: Patient ABO/Rh B Positive 12/25/22 Antibody Screen NEGATIVE 12/25/22 Complete Blood Count: White Blood Count 8.90 10^3/uL (4.4-10.8) 12/25/22 10:39 Red Blood Count 4.67 10^6/uL (3.93-5.22) 12/25/22 10:39 Hemoglobin 13.5 g/dL (11.2-15.7) 12/25/22 10:39 Hematocrit 41.3 % (36.0-46.0) 12/25/22 10:39 Platelet Count 278 10^3/uL (130-400) 12/25/22 10:39 Complete Metabolic Panel: No Data to Display Liver Function Panel: No Data to Display Coagulation Panel: No Data to Display Cardiac Panel: No Data to Display Arterial Blood Gas: No Data to Display Venous Blood Gas: No Data to Display Pancreas Panel: No Data to Display Thyroid Panel: No Data to Display Infectious Disease: No Data to Display Blood Cultures: No Data to Display Toxicology Panel: No Data to Display Anesthesia Assessment and Plan Anesthesia History Personal History: No History of Anesthesia Complications Family History: No Family History of Anesthesia Complications Exercise Tolerance Exercise Tolerance: Metabolic Equivalents>4 Pertinent Negatives Pertinent Negatives: No Major Cardiovascular Symptoms or Complaints and No History of CVA/TIA Cardiac & Pulmonary Exam Cardiac Exam: Normal S1/S2 Heart Sounds Pulmonary Exam: Clear Bilateral Breath Sounds Implantable Cardiac Device Does patient have a Pacemaker or an ICD?: No Airway Exam Known Difficult Airway: No Mallampati Class: 2 Mouth Opening: Narrow (< 3cm) Thyromental Distance: Greater than 3 cm Neck Range of Motion: Limited ROM (slight) Neck Circumference: Thick Teeth Condition: Normal Dentition (Some missing, none loose per patient ) and Other (Top front tooth chipped) ASA Classification ASA Score: ASA 3 Emergency Case?: No NPO Status NPO Status: NPO Clears >2 hours, Solids >8 hours Anesthesia Plan Resuscitation Status: Full Code Anesthesia Technique: General Anesthesia Airway Planned: Natural Airway Monitors Used: Standard Monitors Preoperative Comments:: 72 yo female with history of endometrial carcinoma s/p hysterotomy and radiation with vaginal bleeding/lesion here for exam under anes. Sig PMHx: HTN (HCTZ, losartan), GERD (famotidine), hypothyroid (on replacement), preDM, cervical stenosis, LNO, vertigo, never smoker, occ EtOH. Previous Anes: - hysteroscopy, prop, natural airway, no issues. - TKA, spinal, prop sedation, no issues. - colo, prop, natural airway. - hysterectomy/[facility], mac 3 grade 1, easy mask.
[2022-12-28 12:05] VITALS: BP 139/77; PULSE 76; RESP 16; TEMP 36.7; O2SAT 100
[2022-12-28] MEDS: Lactated Ringers 1,000 ML 125 ML IV (12:20)
--- NOTE | 2022-12-28 13:39 | VAG_PTH ---
PATIENT: Brittni Valentin LOC: [facility] U#:[id number] AGE/SX: 72/F ROOM: RE12/28/[address]: Mary Lopez DO : 1950 BED: DIS: 12/28/2022 SPEC #: [id number] RECD: 12/28/22 17:27 STATUS: BC RE #: [id number] DAWOOD: 12/28/22 13:[address]: Mary Lopez DEPT: Surgical Specimen RECD BY: Sunshine Gipson ENTERED: 12/28/22 17:27 SP TYPE: VAG OTHR DR: Ann Choi APRN Tissues: 1 - VAGINAL BIOPSY Procedures: GROSS AND MICRO LEVEL 4 Comments: [id number]
[2022-12-28] MEDS: Silver Nitrate Stick 1 EACH (13:41)
--- NOTE | 2022-12-28 13:52 | W.PM.OP ---
Date of service: 12/28/22 Time of Service: 13:52 Operative Note Operative Note DATE OF PROCEDURE: 12/28/22 PRE-OP DIAGNOSIS: History of FIGO grade 3 endometrial adenocarcinoma with subsequent radiation therapy to her pelvis. Vaginal bleeding. Vaginal mass. PROCEDURE: Exam under anesthesia with vaginal biopsy. SURGEON: Mary Lopez ANESTHESIA TYPE: General:No Airway Refer to Anesthesia Record ESTIMATED BLOOD LOSS: 5 PATHOLOGY: other (Vaginal biopsy) COMPLICATIONS: None Patient was transported to: same day Patient's condition: stable Indications: Postmenopausal bleeding. Vaginal mass. History of endometrial adenocarcinoma with staging hysterectomy and radiation therapy Findings: 2-1/2 cm friable lesion at the vaginal apex. No surrounding erythema or induration. Lesion is noted both on rectal and rectovaginal examinations. Procedure Description: After full informed consent was obtained, patient taken operating suite with an IV running. She is placed in supine position and general anesthesia administered. She was then placed in the modified dorsolithotomy position prepped and draped in the usual sterile fashion. No antibiotics were indicated. She had pneumatic compression stockings for DVT prophylaxis. Exam under anesthesia revealed a vaginal vault that was of normal caliber and length. At the apex there is noted to be a 2-1/2 cm friable lesion which was firm, and felt both on rectal and vaginal examinations. A biopsy of this area was taken and the base was cauterized with silver nitrate. Patient was returned to the dorsal supine position awoke from anesthesia with ease. My clinical impression is that of a recurrence of her endometrial adenocarcinoma. Findings: As above Fluids: Crystalloid per anesthesia Pathology: Vaginal biopsy for examination Complications: None apparent EBL: 5 mL
[2022-12-28 13:55] VITALS: BP 122/68; PULSE 72; RESP 16; TEMP 36.4; O2SAT 98
[2022-12-28 14:07] VITALS: BMI 46.8
[2022-12-28 14:25] VITALS: BP 103/83; PULSE 72; RESP 16; TEMP 36.4; O2SAT 98
--- NOTE | 2022-12-28 16:37 | W.ANESPOSTOP ---
Postoperative Evaluation Date, Time and Location Date Performed: 12/28/22 Time Performed: 14:40 Patient Location: Day Surgery Unit Vital Signs Most Recent Imported Vital Signs: Most Recent Vital Signs Temp Pulse Resp BP Pulse Ox 36.4 C L 72 16 122/68 98 12/28/22 14:40 12/28/22 14:40 12/28/22 14:40 12/28/22 14:40 12/28/22 14:40 Pain Score Most Recent Pain Score: Most Recent Pain Score Pain Level 2 12/28/22 14:40 Assessment Mental Status: Awake (Alert & Oriented to Patient Baseline) Airway and Respiratory Function: Patent airway with normal (patient baseline) respiratory exam Cardiovascular Function: Hemodynamically Stable Hydration Status: Adequately Hydrated Nausea & Vomiting: No Nausea or Vomiting Pain: Pain is tolerable per patient Peripheral Nerve Block: Patient did not receive a nerve block Postoperative Comments:: discharged home without apparent complications.
== END 2022-12-28 15:07 | disposition home or self-care (01) ==
PROVIDERS: PCP Nurse Practitioner; Visit Provider Obstetrics & Gynecology
PROC: (CPT 57100; principal; 2022-12-28 13:45)
DX: N93.9 Abnormal uterine and vaginal bleeding, unspecified (principal); N89.9 Noninflammatory disorder of vagina, unspecified; Z85.42 Personal history of malignant neoplasm of other parts of uterus; C54.1 Malignant neoplasm of endometrium
CPT/HCPCS: 57100; 88305; J1100; J2405

== ENCOUNTER 2023-01-03 00:43 | Outpatient (CLI) | payer MEDICARE, SELFPAY ==
[2023-01-03] MEDS: Barium Sulfate 2% W/V-Berry Smoothie 450 ML BTL PO (12:13)
[2023-01-03 12:52] LABS: CREATININE 0.8 mg/dL (0.55-1.02); Estimated GFR 78.24 (mL/min/1.73m2)
[2023-01-03] MEDS: Normal Saline - Diluent 50 ML VIAL IJ (13:58)
[2023-01-03] MEDS: Omnipaque 350 MG/ML 100 ML BTL IJ (13:58)
--- NOTE | 2023-01-03 14:00 | DI.CT_ITS ---
Exam(s) CT CHEST/ABD/PEL W EXAM: CT CHEST/ABD/PEL W CLINICAL HISTORY: ENDOMETRIAL CA, C54.1. TECHNIQUE: Imaging Protocol: Axial computed tomography images with coronal and sagittal reformatted images were created and reviewed CONTRAST MATERIAL: Intravenous: Omnipaque 350 Contrast volume:100 ml Oral: yes / no COMPARISON: CT CT CHEST/ABD/PEL W from 09/26/[address] ABDOMEN PELVIS W from 11/30/[address] CHEST W from 05/04/2022 FINDINGS: CHEST: Tracheobronchial tree: Patent where visualized. Pulmonary parenchyma: No consolidation or dominant measurable mass. No change in bilateral perifissu ral nodules. No change tiny pleural based nodule posterior right lower lobe. No new nodules. Pleura: No effusion or pneumothorax. Lymph nodes: Within normal limits. Aorta: Thoracic portion non-dilated. Heart: Bones: Degenerative disc changes.. No lytic or blastic lesions.No compression fractures. ABDOMEN: Liver: Elongated. Fatty infiltration. No measurable mass. Gallbladder and biliary tract: Status post cholecystectomy. No radiodense calculus or dilation. Pancreas: Normal density, no abnormal calcifications or inflammatory process. Spleen: Normal. Kidneys: Normal size, contour and axis. No radiodense stones or obstructive uropathy. No suspicious m asses seen. Adrenal glands: No masses seen. Stomach and small bowel: Diverticulum of the posterior fundus, adjacent to spleen, unchanged from norbert or exams.. Aorta: Abdominal portion non-dilated. Atherosclerotic changes. Lymph nodes: Within normal limits. Soft tissues: Unremarkable. PELVIS: Bladder: Symmetric distention, no gross wall thickening. Bowel: No obstruction or bowel wall thickening. Diverticulosis descending colon. Peritoneal cavity: No ascites, collection or mesenteric inflammatory response. Bones: Unremarkable for age.. Reproductive organs: Status post hysterectomy. Ovaries not visualized. IMPRESSION: Stable pulmonary nodules. No new abnormalities. No evidence of metastatic disease in the abdomen or pelvis. RADIATION DOSE DELIVERED: 2,229.5mGy.cm Total DLP DATA REPOSITORY: All CT scans at this facility are submitted to the National Radiology Data Registry (NRDR) Dose Index Registry (DIR) with the [employer] (ACR). RADIATION OPTIMIZATION: All CT scans at this facility use at least one of these dose optimization te chniques: automated exposure control; mA and/or kV adjustment per patient size (includes targeted exa ms where dose is matched to clinical indication); or iterative reconstruction.
[2023-01-04 10:55] LABS: CA 125 9 U/mL (<30)
== END 2023-01-03 01:03 ==
LOC: DI 00:43
PROVIDERS: PCP Nurse Practitioner; Visit Provider Nurse Practitioner Family
DX: C54.1 Malignant neoplasm of endometrium (principal); N93.9 Abnormal uterine and vaginal bleeding, unspecified; N89.8 Other specified noninflammatory disorders of vagina; R73.03 Prediabetes
CPT/HCPCS: 74177; 86304; 71260; 82565; J3490

== ENCOUNTER 2023-03-09 02:07 | Outpatient (CLI) | payer MEDICARE, SELFPAY ==
[2023-03-09 10:50] LABS: Abs Immature Grans 0.07 10^3/uL (0.0-0.06); Absolute Basophil Count 0.03 10^3/uL (0.0-0.2); Absolute Eosinophil Count 0.29 10^3/uL (0.0-0.7); Absolute Lymphocyte Count 0.98 10^3/uL (1.2-3.4); Absolute Monocyte Count 0.57 10^3/uL (0.1-0.8); Absolute Neutrophil Count 4.41 10^3/uL (1.2-6.7); Basophils % 0.5; Eosinophils % 4.6; HCT 36.7 % (36.0-46.0); HGB 12.3 g/dL (11.2-15.7); Immature Grans % 1.1; Lymphocytes % 15.4; MCH 29.4 pg (27.0-33.0); MCHC 33.5 % (32.0-36.0); MCV 88 fL (80-95); MPV 9.5 fL (8.0-11.0); Neutrophils % 69.4; Platelet Count 148 10^3/uL (130-400); RBC 4.19 10^6/uL (3.93-5.22); RDW 14.7 % (11.7-14.6); RDW-SD 45.1 fL; WBC 6.35 10^3/uL (4.4-10.8)
[2023-03-09 11:24] LABS: ALT 39 U/L (14-59); AST 18 U/L (15-37); Albumin 3.4 g/dL (3.4-5.0); Alkaline Phosphatase 100 U/L (46-116); Anion Gap 6.1 mmol/L (3-11); BUN 17 mg/dL (7-18); Bilirubin, Total 0.3 mg/dL (0.2-1.0); CO2 30.9 mmol/L (21.0-32.0); CREATININE 0.8 mg/dL (0.55-1.02); Chloride 103 mmol/L (98-107); Estimated GFR 78.24 (mL/min/1.73m2); Glucose 107 mg/dL (74-106); Sodium 140 mmol/L (136-145); Total Protein 6.9 g/dL (6.4-8.2)
== END 2023-03-09 02:08 | disposition home or self-care (01) ==
PROVIDERS: PCP Nurse Practitioner; Visit Provider Obstetrics & Gynecology Gynecologic Oncology
DX: C54.1 Malignant neoplasm of endometrium (principal)
CPT/HCPCS: 36415; 80053; 85025

== ENCOUNTER 2023-04-03 03:46 | Outpatient (RCR) | payer MEDICARE, SELFPAY ==
[2023-04-03] MEDS: Normal Saline Flush 10 ML SYR IVP (08:13)
[2023-04-03 08:34] LABS: Abs Immature Grans 0.02 10^3/uL (0.0-0.06); Absolute Basophil Count 0.01 10^3/uL (0.0-0.2); Absolute Eosinophil Count 0.04 10^3/uL (0.0-0.7); Absolute Lymphocyte Count 0.68 10^3/uL (1.2-3.4); Absolute Monocyte Count 0.35 10^3/uL (0.1-0.8); Absolute Neutrophil Count 2.67 10^3/uL (1.2-6.7); Basophils % 0.3; Eosinophils % 1.1; HCT 31.5 % (36.0-46.0); HGB 10.6 g/dL (11.2-15.7); Immature Grans % 0.5; MCHC 33.7 % (32.0-36.0); MCV 89 fL (80-95); MPV 10.1 fL (8.0-11.0); Monocytes % 9.3; Neutrophils % 70.8; Platelet Count 124 10^3/uL (130-400); RBC 3.53 10^6/uL (3.93-5.22); RDW 17.2 % (11.7-14.6); WBC 3.77 10^3/uL (4.4-10.8)
[2023-04-03 08:46] LABS: ALT 38 U/L (14-59); AST 23 U/L (15-37); Albumin 3.1 g/dL (3.4-5.0); Alkaline Phosphatase 105 U/L (46-116); Anion Gap 7.2 mmol/L (3-11); BUN 14 mg/dL (7-18); Bilirubin, Total 0.3 mg/dL (0.2-1.0); CO2 28.8 mmol/L (21.0-32.0); CREATININE 0.7 mg/dL (0.55-1.02); Calcium 9.5 mg/dL (8.5-10.1); Chloride 105 mmol/L (98-107); Estimated GFR 91.83 (mL/min/1.73m2); Glucose 122 mg/dL (74-106); Potassium 3.6 mmol/L (3.5-5.1); Sodium 141 mmol/L (136-145); Total Protein 6.5 g/dL (6.4-8.2)
== END 2023-04-26 23:59 | disposition home or self-care (01) ==
LOC: INF 03:46
PROVIDERS: PCP Nurse Practitioner; Visit Provider Internal Medicine
DX: C54.1 Malignant neoplasm of endometrium (principal); Z45.2 Encounter for adjustment and management of vascular access device
CPT/HCPCS: 36591; 80053; 85025

== ENCOUNTER → 2024-01-01 02:16 | Outpatient (CLI) | payer MEDICARE, SELFPAY ==
--- NOTE | 2024-01-01 07:45 | DI.MAMMO_ITS ---
Exam(s) MAMMO SCREENING EXAM: MAMMO SCREENING CLINICAL HISTORY: screening,Z12.39 TECHNIQUE: Bilateral full field digital CC and MLO mammographic images were obtained with 3D tomosyn thesis and utilizing computer aided detection (CAD). COMPARISON: Available for comparison. FINDINGS: Masses/Architectural Distortion: Stable nodules in the left breast. No new nodules or areas of archi tectural distortion are seen. Microcalcifications: No suspicious pleomorphic-type are seen. Stable benign type calcifications are s een in both breasts. Skin Thickening/Nipple Retraction: None. IMPRESSION: 1. No significant interval change with no specific features of malignancy noted. 2. Unless there is more urgent need, screening mammography is recommended, as per [employer] guidelines. BI-RADS Category 2 - Benign Findings Breast Density - Category B - Scattered areas of fibroglandular density Breast density category C or D implies that the patient has dense breast tissue. Dense breast tissue is very common and is not abnormal but dense breast tissue can make it harder to find cancer on a ma mmogram. Also, dense breast tissue may increase their breast cancer risk. This information about the result of the mammogram report was provided to the patient to raise their awareness. Use this report when you speak with the patient about their risks for breast cancer, which includes their family hist ory. At that time, you may recommend for more screening tests (Ultrasound or MRI) as they might be us eful based on their risk. A negative radiographic report should not delay biopsy if a dominant or clinically suspicious mass is present. Up to ten percent of cancers are not identified on mammography. A negative report may reinforce clinical impression. Adenosis and dense breasts may obscure an underlying neoplasm. False positive reports average 6 to 10%. Patient will receive a letter notifying them of these results.
== END ==
PROVIDERS: PCP Nurse Practitioner; Visit Provider Nurse Practitioner
DX: Z12.31 Encounter for screening mammogram for malignant neoplasm of breast (principal)
CPT/HCPCS: 77063; 77067

== ENCOUNTER 2024-01-04 02:43 | Outpatient (CLI) | payer MEDICARE, SELFPAY ==
[2024-01-04 08:16] LABS: Abs Immature Grans 0.01 10^3/uL (0.0-0.06); Absolute Basophil Count 0.05 10^3/uL (0.0-0.2); Absolute Eosinophil Count 0.32 10^3/uL (0.0-0.7); Absolute Lymphocyte Count 1.23 10^3/uL (1.2-3.4); Absolute Monocyte Count 0.62 10^3/uL (0.1-0.8); Basophils % 0.8 %; Eosinophils % 5.3 %; HCT 39.2 % (36.0-46.0); HGB 12.6 g/dL (11.2-15.7); Immature Grans % 0.2 %; Lymphocytes % 20.4 %; MCH 28.8 pg (27.0-33.0); MCHC 32.1 % (32.0-36.0); MCV 90 fL (80-95); MPV 10.2 fL (8.0-11.0); Monocytes % 10.3 %; Platelet Count 221 10^3/uL (130-400); RBC 4.38 10^6/uL (3.93-5.22); RDW 14.6 % (11.7-14.6); WBC 6.03 10^3/uL (4.4-10.8)
[2024-01-04 09:14] LABS: ALT 21 U/L (14-59); AST 14 U/L (15-37); Albumin 3.8 g/dL (3.4-5.0); Alkaline Phosphatase 104 U/L (46-116); Anion Gap 2.7 mmol/L (3-11); BUN 18 mg/dL (7-18); Bilirubin, Total 0.4 mg/dL (0.2-1.0); CO2 32.3 mmol/L (21.0-32.0); CREATININE 0.8 mg/dL (0.55-1.02); Calculated LDL 80 mg/dL (<100); Chloride 103 mmol/L (98-107); Cholesterol 175 mg/dL (<200); Estimated GFR 77.75 (mL/min/1.73m2); Ferritin 80 ng/mL (8-252); Glucose 113 mg/dL (74-106); HDL Cholesterol 75 mg/dL (40-60); Sodium 138 mmol/L (136-145); TSH (W/Ref FT4) 3.32 uIU/mL (0.36-3.74); Total Protein 7.2 g/dL (6.4-8.2); Triglyceride 103 mg/dL (<150); Vitamin B12 483 pg/mL (193-986)
== END 2024-01-04 02:44 | disposition home or self-care (01) ==
LOC: LBO 02:43
PROVIDERS: PCP Nurse Practitioner; Visit Provider Nurse Practitioner
DX: D64.9 Anemia, unspecified (principal); I10 Essential (primary) hypertension; R73.03 Prediabetes; E78.00 Pure hypercholesterolemia, unspecified
CPT/HCPCS: 36415; 80053; 80061; 82607; 82728; 84443; 85025

== ENCOUNTER 2024-06-26 11:38 | Outpatient (CLI) | payer MEDICARE, SELFPAY ==
--- NOTE | 2024-06-26 09:45 | DI.RAD_ITS ---
Exam(s) XR KNEE LT 2V AP,LAT XR STANDING ALIGNMENT EXAM: XR STANDING ALIGNMENT CLINICAL HISTORY: knee pain. TECHNIQUE: 2D digital imaging was performed. Standing AP views were performed from the pelvis throu gh the ankles. AP lateral views of the left knee COMPARISON: CR XR STANDING ALIGNMENT from 01/06/2021 CR XR KNEE RT 2V AP,LAT from 12/26/2021 CR XR KNEE LT 2V AP,LAT from 06/26/2024 FINDINGS: BONES: No acute fracture is present. No bony destructive lesion is seen. Leg length discrepancy: No significant overall leg length discrepancy. JOINTS: Knees: Right knee prosthesis appears unchanged. Margin severe narrowing of the medial femora l tibial joint space of the left knee. Severe periarticular spurring throughout. Small joint effusi on. The ankle joints show mild bilateral joint space narrowing. The hip joints are unremarkable. SOFT TISSUE: Normal. IMPRESSION: Advanced degenerative changes of the left knee. No significant leg length discrepancy. DATA REPOSITORY: RADIATION DOSE DELIVERED:
== END 2024-06-26 11:39 | disposition home or self-care (01) ==
LOC: DIORS 11:38
PROVIDERS: PCP Nurse Practitioner; Referring Provider Nurse Practitioner; Visit Provider Student in an Organized Health Care Education/Training Program
DX: M17.0 Bilateral primary osteoarthritis of knee (principal); M17.12 Unilateral primary osteoarthritis, left knee
CPT/HCPCS: 99213; 73560; 77073

== ENCOUNTER 2024-08-07 03:16 | Outpatient (CLI) | payer MEDICARE, SELFPAY ==
[2024-08-07 11:35] LABS: HCT 41.6 % (36.0-46.0); HGB 13.4 g/dL (11.2-15.7); MCH 29.3 pg (27.0-33.0); MCHC 32.2 % (32.0-36.0); MCV 91 fL (80-95); MPV 10.7 fL (8.0-11.0); Platelet Count 234 10^3/uL (130-400); RBC 4.58 10^6/uL (3.93-5.22); RDW 14.2 % (11.7-14.6); RDW-SD 47.7 fL; WBC 7.63 10^3/uL (4.4-10.8)
[2024-08-07 11:44] LABS: Anion Gap 6.3 mmol/L (3-11); BUN 20 mg/dL (7-18); CO2 30.7 mmol/L (21.0-32.0); CREATININE 0.8 mg/dL (0.55-1.02); Calcium 9.6 mg/dL (8.5-10.1); Chloride 105 mmol/L (98-107); Estimated GFR 77.75 (mL/min/1.73m2); Glucose 106 mg/dL (74-106); Potassium 4.7 mmol/L (3.5-5.1); Sodium 142 mmol/L (136-145)
== END 2024-08-07 03:17 | disposition home or self-care (01) ==
LOC: LBO 03:16 → LBN 11:28
PROVIDERS: PCP Nurse Practitioner; Visit Provider Student in an Organized Health Care Education/Training Program
DX: M17.12 Unilateral primary osteoarthritis, left knee (principal); Z01.818 Encounter for other preprocedural examination
CPT/HCPCS: 80048; 85027

== ENCOUNTER 2024-08-18 07:08 | Day surgery (SDC) | payer MEDICARE, SELFPAY ==
[2024-08-18] VITALS (25 sets, daily range): BP systolic 79–168; BP diastolic 39–88; PULSE 67–89; RESP 15–31; TEMP 35.9–36.3; O2SAT 94–99; BMI 43.3
--- NOTE | 2024-08-18 07:23 | W.PM.DSUDISC ---
Date of service: 08/18/24 Discharge Plan Disposition Patient Disposition: Home Condition: Good Discharge Details Reason For Visit: Left knee DJD Attending Provider: Tano Cartwright Primary Care Provider: Ann Choi Home Meds and New Rx's Prescriptions: New celecoxib [Celebrex] 200 mg capsule 200 mg PO BID PRNQty: 60 0RF Rx Instructions: Take one tablet twice daily for pain and inflammation aspirin 81 mg tablet,delayed release (DR/EC) 81 mg PO BID 30 Days Qty: 60 0RF acetaminophen 500 mg tablet 1,000 mg PO Q8H PRN Qty: 90 0RF Rx Instructions: Take two tablets up to every 8 hours as needed for pain pantoprazole 40 mg tablet,delayed release (DR/EC) 40 mg PO DAILY 14 Days Qty: 14 0RF dexamethasone 4 mg tablet 4 mg PO DAILY Qty: 2 0RF Rx Instructions: Take one tablet once daily for two days docusate sodium [Colace] 100 mg capsule 100 mg PO BID Qty: 30 0RF gabapentin 300 mg capsule 300 mg PO QHS Qty: 14 0RF Rx Instructions: Take one tablet at bedtime oxycodone 5 mg tablet 5 mg PO Q4H PRNQty: 18 0RF Rx Instructions: Take one tablet up to every 4 hours as needed for severe postoperative pain Continued famotidine [Pepcid] 20 mg tablet 20 mg PO DAILY Qty: 90 3RF fluticasone propionate 50 mcg/actuation spray,suspension 2 spray intranasal DAILY Qty: 16 6RF Rx Instructions: administer into each nostril hydrochlorothiazide 25 mg tablet 25 mg PO DAILY Qty: 90 3RF levothyroxine 75 mcg tablet 75 mcg PO DAILY Qty: 90 3RF lovastatin 40 mg tablet 40 mg PO QPM Qty: 90 3RF docusate sodium [Stool Softener] 100 mg tablet 100 mg PO BID Qty: 100 6RF cholecalciferol (vitamin D3) [Vitamin D3] 25 mcg (1,000 unit) tablet 1,000 unit PO DAILY Discontinued acetaminophen 325 mg tablet 325 mg PO Q4H PRN Discharge Instructions Additional Instructions: Total Knee Discharge Instructions Activity: The most important activity is to walk and to work on gentle motion (both flexion and extension). You should try to take short walks a few times a day. It is important that when resting you work on keeping the knee straight. Avoid putting a pillow behind the knee as this will encourage flexion. Work on range of motion exercises as provided by Physical Therapy. - Start outpatient physical therapy within 2 weeks. - You should wear the LEANNA hose on both legs for 2 weeks. You may remove these at night. You may also use any compression sock in place of the LEANNA hose. - Utilize [employer] to review exercises, see videos on exercises and obtain basic information pertaining to your surgery and your recovery. Dressing: Remove the Renny wrap by 2 days after your surgery and put on the LEANNA stocking given to you from the hospital. Keep the surgical dressing (underneath the RENNY wrap) in place for at least one week. After the first week it may be removed and replaced with light gauze and tape or nothing. The wound and dressing may get wet after 3 days but avoid soaking the dressing or otherwise it will need to be changed. Many people prefer covering the dressing with cling wrap (saran wrap) to minimize it from getting soaked. If it gets wet, just pat dry. If it starts to peel off then it will need to be changed. Medications: - You should take Tylenol and anti-inflammatory Celebrex as your primary pain control medications. If the Celebrex is too expensive or not covered, please call the office for another alternative (Advil/Ibuprofen or Naproxen/Aleve) - You have been prescribed a stronger pain medication Oxycodone for breakthrough pain, take as needed as prescribed. - You have also been prescribed a stomach acid reduction agent Pantoprozole to help reduce stomach acid and reflux. - You have been prescribed Gabapentin to take at night for restlessness and nerve pain. - You will be taking Aspirin 81mg twice a day for DVT prevention unless instructed otherwise. - You have also been prescribed Decadron to take to control post-operative nausea and pain. You will start this tomorrow. - If you have constipation you should take Colace (which has been prescribed) or Miralax (which is available [id number]). It takes most people 3-4 days to have a bowel movement. Follow-up: 2 weeks If you have any acute concerns or questions, please do not hesitate to contact the office at [phone]. You may contact Dr. Cartwright with any questions after hours through the hospital at [phone] or on his cell phone at [phone]. Referrals: Tano Cartwright MD [ [facility] STAFF PHYSICIAN] - Equipment/Supplies: Walker Activity:: Elevate Remove Dressings/Wound Care:: Do Not Remove Shower/Bathe:: Cover Diet:: As Tolerated Discharge Orders Discharge Orders: Discharge Order (Routine); Ordered 08/18/24 Ordered By: Sasha Alamo
[2024-08-18] MEDS: Gabapentin 300 MG CAP PO (07:47)
[2024-08-18] MEDS: Acetaminophen 500 MG TAB 1000 MG PO (07:47)
[2024-08-18] MEDS: Celecoxib 200 MG CAP 400 MG PO (07:48)
--- NOTE | 2024-08-18 07:48 | ANES.PREOP_ITS ---
General Info Date of Service Date Performed: 08/18/24 Height: 4 ft 11 in Weight: 97.4 kg Body Mass Index (BMI): 43.3 Surgical Procedure: Operation Date: 08/18/24 09:25 Proposed Procedure Side Surgeon p Knee Total Arthroplasty, Cementless CR Left Tano Cartwright MD Meds Allergies and Home Medications Allergies Allergy/AdvReac Type Severity Reaction Status Date / Time penicillin V Allergy Intermediate Rash, fever Verified 08/18/24 07:24 hydralazine AdvReac Unknown Headache/ Verified 08/18/24 07:24 cough Dust, Mold, Pollen Allergy Unknown Itching Uncoded 08/18/24 07:24 Home Medication ?Medication ?Instructions ?Recorded cholecalciferol (vitamin D3) 25 1,000 unit PO DAILY 11/19/19 mcg (1,000 unit) tablet (Vitamin D3) fluticasone propionate 50 2 spray intranasal DAILY #16 grams 03/14/22 mcg/actuation nasal spray,suspension famotidine 20 mg tablet (Pepcid) 20 mg PO DAILY #90 tabs 10/16/23 docusate sodium 100 mg tablet 100 mg PO BID #100 tab-caps 12/25/23 (Stool Softener) hydrochlorothiazide 25 mg tablet 25 mg PO DAILY #90 tab-caps 12/25/23 levothyroxine 75 mcg tablet 75 mcg PO DAILY #90 tab-caps 12/25/23 lovastatin 40 mg tablet 40 mg PO QPM #90 tabs 12/25/23 acetaminophen 500 mg tablet 1,000 mg (2 x 500 mg) PO Q8H PRN 08/18/24 pain #90 tabs aspirin 81 mg tablet,delayed 81 mg PO BID 30 days #60 tabs 08/18/24 release celecoxib 200 mg capsule (Celebrex) 200 mg PO BID PRN #60 caps 08/18/24 dexamethasone 4 mg tablet 4 mg PO DAILY #2 tabs 08/18/24 docusate sodium 100 mg capsule 100 mg PO BID #30 caps 08/18/24 (Colace) gabapentin 300 mg capsule 300 mg PO QHS #14 caps 08/18/24 oxycodone 5 mg tablet 5 mg PO Q4H PRN #18 tabs 08/18/24 pantoprazole 40 mg tablet,delayed 40 mg PO DAILY 14 days #14 tabs 08/18/24 release Current Visit Medications: Current Medications Generic Name Dose Route Start Last Admin Trade Name Phong PRN Reason Stop Dose Admin Acetaminophen 1,000 mg 08/18/24 06:00 08/18/24 07:47 Acetaminophen 500 Mg Tab PO 08/18/24 23:59 1,000 mg PREOP KIERAN Administration Celecoxib 400 mg 08/18/24 06:00 08/18/24 07:48 Celecoxib 200 Mg Cap PO 08/18/24 23:59 400 mg PREOP KIERAN Administration Gabapentin 300 mg 08/18/24 06:00 08/18/24 07:47 Gabapentin 300 Mg Cap PO 08/18/24 23:59 300 mg PREOP KIERAN Administration Hydromorphone HCl 0.5 mg 08/18/24 07:21 Hydromorphone 2 Mg/Ml Syr IVP 09/17/24 07:20 Q2H PRN PRN Ringer's Solution 1,000 mls @ 80 mls/hr 08/18/24 06:00 IV 08/18/24 23:59 INFUSION KIERAN Cefazolin Sodium/Dextrose 2 gm in 50 mls @ 100 mls/hr 08/18/24 06:00 Ancef Duplex IVPB 08/18/24 23:59 PREOP KIERAN Tranexamic Acid/Sodium Chloride 1,000 mg in 100 mls @ 600 mls/hr 08/18/24 06 :00 IVPB 08/18/24 23:59 PREOP KIERAN Cefazolin Sodium/Dextrose 1 gm in 50 mls @ 100 mls/hr 08/18/24 08:00 Ancef Duplex IVPB 08/19/24 00:29 Q8H KIERAN IV Miscellaneous Supplies 1 each 08/18/24 06:00 Iv Access IV 08/18/24 23:59 DIRECTED KIERAN Oxycodone HCl 0 mg 08/18/24 07:21 Oxycodone 5 Mg Tab PO 09/17/24 07:20 Q3H PRN PRN Pain Sodium Chloride 0 ml 08/18/24 06:00 Normal Saline Flush 10 Ml Syr IV 08/18/24 23:59 PRN PRN Sodium Chloride 0 ml 08/18/24 06:00 Normal Saline 10 Ml Vial IJ 08/18/24 23:59 DIRECTED PRN Sterile Water 0 ml 08/18/24 06:00 Water,Injection,Sterile 10 Ml Vial IJ 08/18/24 23:59 DIRECTED PRN PFSH Active Problems Active Problems: Problem Status Onset Code Sensorineural hearing loss, bilateral Acute H90.3 Endometrial cancer determined by uterine biopsy Acute ~12/2022 C54.1 Constipation Acute 04/08/18 K59.00 Essential hypertension Acute 06/07/17 I10 Gastroesophageal reflux disease without esophagitis Acute 04/08/18 K21.9 Hypothyroidism Acute 06/07/17 E03.9 Obesity Acute 10/08/17 E66.9 Pre-diabetes Acute 06/07/17 R73.03 Primary osteoarthritis of both knees Acute 06/07/17 M17.0 Pure hypercholesterolemia Acute 06/07/17 E78.00 Headache Acute 06/07/17 R51 Gout Acute 06/07/17 M10.9 Flat feet, bilateral Acute M21.41, M21.42 Post-menopausal bleeding Acute N95.0 Cervical stenosis (uterine cervix) Acute N88.2 S/P dilatation and curettage Acute Z98.890 Endometrial carcinoma Acute Medicare annual wellness visit, subsequent Acute Z00.00 Osteoarthritis of right knee Acute M17.11 Osteoarthritis of left knee Acute M17.12 Hypothyroidism Chronic E03.9 Hypertrophic toenail Acute L60.2 Snoring Acute R06.83 Rash Acute R21 Itching Acute L29.9 Mite infestation Acute B88.9 Morbid obesity with body mass index of 45.0-49.9 in adult Acute E66.01, Z68.42 Screening for colon cancer Acute Z12.11 Vaginal bleeding Acute N93.9 Vaginal lesion Acute N89.8 Medical History Medical History Difficult intravenous access Osteoarthritis High cholesterol Hyperthyroidism pt. denies this-states HYPOthroidism Vertigo HTN (hypertension) GERD (gastroesophageal reflux disease) Hiatal hernia Surgical History Surgical History History of total right knee replacement (12/21/20) Status post hysterectomy with oophorectomy (08/14/19) 08/14/19- [facility] [place] robotic hysterectomy/BSO with sentinel lymph node biopsies. History of dilatation and curettage History of colonoscopy Ligation of fallopian tube Cholecystectomy Appendectomy Tobacco Smoking/Tobacco Use Status: Never Alcohol Alcohol Intake: current Alcohol intake frequency: holidays/special occasions only Alcohol type: wine and other Substance Use Substance use: Never Substance use type: does not use Vital Signs and Lab Results Vital Signs Most Recent Vital Signs in EMR: Most Recent Vital Signs Temp Pulse Resp BP Pulse Ox 36.1 C L 69 18 168/88 H 99 08/18/24 07:27 08/18/24 07:27 08/18/24 07:27 08/18/24 07:27 08/18/24 07:27 Lab Results Blood Type / Crossmatch: No Data to Display Complete Blood Count: White Blood Count 7.63 10^3/uL (4.4-10.8) 08/07/24 10:55 Red Blood Count 4.58 10^6/uL (3.93-5.22) 08/07/24 10:55 Hemoglobin 13.4 g/dL (11.2-15.7) 08/07/24 10:55 Hematocrit 41.6 % (36.0-46.0) 08/07/24 10:55 Platelet Count 234 10^3/uL (130-400) 08/07/24 10:55 Complete Metabolic Panel: Sodium 142 mmol/L (136-145) 08/07/24 10:55 Potassium 4.7 mmol/L (3.5-5.1) 08/07/24 10:55 Chloride 105 mmol/L (98-107) 08/07/24 10:55 Carbon Dioxide 30.7 mmol/L (21.0-32.0) 08/07/24 10:55 BUN 20 mg/dL (7-18) H 08/07/24 10:55 Creatinine 0.8 mg/dL (0.55-1.02) 08/07/24 10:55 Est GFR (CKD-EPI 2020) 77.75 (mL/min/1.73m2) 08/07/24 10:55 Calcium 9.6 mg/dL (8.5-10.1) 08/07/24 10:55 Glucose 106 mg/dL (74-106) 08/07/24 10:55 Liver Function Panel: No Data to Display Coagulation Panel: No Data to Display Cardiac Panel: No Data to Display Arterial Blood Gas: No Data to Display Venous Blood Gas: No Data to Display Pancreas Panel: No Data to Display Thyroid Panel: No Data to Display Infectious Disease: No Data to Display Blood Cultures: No Data to Display Toxicology Panel: No Data to Display Anesthesia Assessment and Plan Anesthesia History Personal History: No History of Anesthesia Complications Family History: No Family History of Anesthesia Complications Exercise Tolerance Exercise Tolerance: Metabolic Equivalents>4 Pertinent Negatives Pertinent Negatives: No Symptoms of GERD (with Rx) Cardiac & Pulmonary Exam Cardiac Exam: Normal S1/S2 Heart Sounds Pulmonary Exam: Clear Bilateral Breath Sounds Implantable Cardiac Device Does patient have a Pacemaker or an ICD?: No Airway Exam Known Difficult Airway: No Mallampati Class: 2 Mouth Opening: Narrow (< 3cm) Thyromental Distance: Greater than 3 cm Neck Range of Motion: Limited ROM (slight) Neck Circumference: Thick Teeth Condition: Normal Dentition (Some missing, none loose per patient ) and Other (Top front tooth chipped) ASA Classification ASA Score: ASA 3 Emergency Case?: No NPO Status NPO Status: NPO Clears >2 hours, Solids >8 hours Anesthesia Plan Resuscitation Status: Full Code Anesthesia Technique: Spinal Anesthesia Airway Planned: Natural Airway Pain Management: Surgeon and patient request nerve block Monitors Used: Standard Monitors
[2024-08-18] MEDS: Lactated Ringers 1,000 ML 80 ML IV (08:34)
[2024-08-18] MEDS: ceFAZolin 2 GM/50 ML BAG IVPB (09:25)
[2024-08-18] MEDS: TRANEXAMIC ACID/SOD. CHL. 1,000 MG/100 ML BAG 600 MG IVPB (09:35)
--- NOTE | 2024-08-18 09:54 | W.ANESNERVE ---
Nerve Block Single Injection Procedure Date and Time Date Performed: 08/18/24 Procedure Start: 08:44 Location Where Procedure Performed Procedure Location: Day Surgery Unit Reason Performed: Postoperative Analgesia Requesting Provider: Tano Cartwright Timeout Performed Timeout Performed: Yes Monitoring Used ECG, Blood Pressure, SpO2, ETCO2 and See EMR for corresponding vital signs Sterility Sterility: Hand Hygiene, Surgical Cap, Surgical Mask, Sterile Gloves, Eye Protection and Chlorhexidine Sedation Given During Procedure Sedation Given (Indicate Dose Given): Versed IV Dose:: 2mg IVP Patient Mental Status Patient Mental Status: Sedate with meaningful communication Nerve Block 1st Nerve Block: Laterality: Left Block Type: Adductor Canal Ultrasound Image Saved?: Yes Needle / Catheter Used: 120mm SonoPlex II Local Anesthetic Bolus (Indicate Dose Given): Lidocaine used for local infiltration of skin, Injected in 3-5ml increments after negative blood aspiration and Ropivacaine 0.5% Dose:: 0.5%/25cc (125mg) Additives (Indicate Dose Given): Epinephrine to make 1:200,000 (5mcg/ml) Dose:: 125mcg and Decadron Dose:: 10mg PF Ultrasound: Sterile probe cover and gel used Nerve Stimulator: Not Used Paresthesia: None Procedure Tolerated: No Complications and Patient tolerated well Procedure Outcome: Successful Performed By: Hermelindo Francisco
--- NOTE | 2024-08-18 10:51 | ROE_ITS ---
Operative Note Operative Note PRE-OP DIAGNOSIS: Left Knee Osteoarthritis POST-OP DIAGNOSIS: same PROCEDURE: Left Total Knee Replacement SURGEON: Tano Cartwright BENDING ROLL HAND: Sasha Alamo ANESTHESIA TYPE: Spinal Refer to Anesthesia Record ESTIMATED BLOOD LOSS: 250 PATHOLOGY: none sent TOURNIQUET TIME: 0 COMPLICATIONS: None Patient was transported to: PACU Patient's condition: stable Implants: 1. Depuy Attune Cementless Cruciate Retaining Femoral Component, Size 4 2. Depuy Attune Cementless Fixed Bearing Tibial Component, Size 5 3. Depuy Attune 4x7mm CR/FB Poly 4. Depuy Attune Patellar Component, Size 35 Indications: I have seen Brittni in clinic for symptoms of knee arthritis, confirmed with radiographic findings. She has exhausted nonoperative methods and was having significant limitations in daily function and desired better function and less pain. I discussed the technical details of a knee replacement. She had an excellent result with a knee replacement on the right. I explained the risks of the procedure to include, but not limited to, bleeding, infection, pain, stiffness, fracture, damage to nerves and vessels, damage to muscles and tendons, loosening, need for repeat procedure, blood clot and cardiopulmonary demise. Despite these risks, Brittni elected to proceed. Findings: There was significant signs of arthritis throughout the knee involving all three compartments. Additionally, there was a cyst about the inferior 1/3 of the patella which was resected. Procedure Description: Brittni was greeted in the preoperative holding area where the correct side was identified and marked. The consent was reviewed with the patient and signed. The history and physical was updated. All questions were answered. Preoperative medications were administered: Acetaminophen 1000mg, Celebrex 400mg, and Gabapentin 300mg. An adductor canal block was then administered by the anesthesia team in the DSU. She was taken back to the operating room. A spinal anesthestic was then administered. The patient was placed into the supine position on the operating room table. Posts were placed for positioning during the procedure. All bony prominences were well padded. Prophylactic antibiotics in the form of Cefazolin were administered. 1g of Tranxemic Acid was given intravenously within 30 minutes of incision. The left leg was then prepped with Chloraprep and draped in a standard fashion with impervious stockinette. A second prep with Chloraprep was performed prior to application of Iodine impregnated skin protection. A timeout to confirm correct identity, side and site, procedure, allergies, anesthesia, and medical concerns was performed. With the knee in some flexion, a midline incision was made overlying the knee. Full thickness skin flaps were raised once the extensor mechanism was encountered. These were raised medially and laterally. Any bleeding was controlled with electrocautery. Once the extensor mechanism was fully exposed, a medial parapatellar arthrotomy was performed in a flexed position. All bleeding from the arthrotomy and the geniculate arteries was coagulated. A medial subperiosteal peel was performed with electrocautery to the midcoronal plane. The fat pad was removed while keeping the patellar tendon protected. The anterior distal femur synovium was removed for later visualization. The ACL and PCL were resected and the anterior horn of the lateral meniscus was transected. The knee was then flexed with the patella everted. Large osteophytes from the tibia were removed. Large osteophytes from the femur were removed. Using a step drill, and based on preoperative templating, the femoral canal was entered. This was done with a step drill without any difficulty. The intramedullary distal femoral cut guide was inserted, set to a 5 degree valgus cut and 9mm cut thickness. The distal femoral cut guide was then held in position and pinned. With the soft tissues protected, the distal cut was performed. This was passed over a few times to ensure a planar cut. I then turned attention to the tibia. The extramedullary guide was placed onto the leg. The distal aspect was slid medial to adjust for position of center of ankle and stay in line with shaft of the tibia. Approximately 5 degrees of posterior slope was kept in the proximal cutting guide. The center of the guide was aligned with the PCL. The stylus was used to assess cut thickness. The medial side, most involved side, was set for a 6mm cut. This was then held in position and pinned into place with 2 additional pins and a cross pin for stability. The medial and lateral collateral ligaments were protected and the cut was performed. With this completed, it was assessed and noted to be of appropriate dimensions. The guide was removed. A spacer block was inserted and the knee was brought into extension. The 6mm spacer block provided full extension, without hyperextension and with stability of both the medial and lateral collateral ligaments was ass essed. The pins from the femur and the tibia were then removed. The distal femur was then sized. The anterior stylus was placed onto the lateral ridge of the anterior femur. This indicated a size 4 femur. The external rotation of the guide was adjusted to 3 degrees to match the epicondylar axis, perpendicular to Christy?s line. The 4-in-1 cutting guide was the placed. The posterior medial femur cut was evaluated and appeared of good thickness. The spacer block was inserted underneath the cutting guide and stability was confirmed in 90 degrees of flexion. An bill wing was used to co nfirm appropriate position of the anterior cut to avoid notching. This cutting guide was ensured to be flush on the cut surface and then pinned into place with headed pins. While protecting the soft tissues, quad tendon, and collateral ligaments, the anterior and posterior cuts were performed with a saw. The central two pins were removed and the posterior and anterior chamfers were cut next. The notch-cutting guide was placed. This was pinned to lateralize the femoral component as much as possible while keeping it flush on the cut surface. This was then pinned into position. A reciprocating saw was used to make the notch cut. A rasp smoothed the cut surfaces. The medial and lateral menisci were removed. A trial femoral component was then inserted, impacted down to the cut surfaces, and the lug holes were drilled. A provisional trial tibial component was placed and the knee was brought through range of motion. The polyethylene was trialed until there was good flexion and extension with excellent stability to the medial and lateral collaterals. The patella was tracking without thumbs. A size 7mm polyethylene component provided the best range of motion and stability with less than 2mm gapping with medial and lateral stress and full extension without significant hyperextension. The tibial cut surface was fully exposed. The tibia was then sized as a 5. The tibia had been previously marked during trialing to correspond to the center of the tibial component to help with rotation. The trial was aligned to this ari, approximately rotated to the medial 1/3rd of the tibial tubercle. The trial was pinned into place. The tibia was prepared with a reamer and a keel punch and lug holes. The knee was then brought into extension and the patella was measured as 23mm. Using the patellar clamp and cut guide, this was resected to a flat surface with at least 13mm of thickness remaining. There was a relateively large cyst involving the inferior 1/3 of the patella. This was curettaged so there was no soft tissue remnants. I then placed the patella cut guide to cover the maximal size of the patella to limit any stress riser. The size 35 patella fit the best. This was oriented and then clamped into position. The lugs were drilled. The trial components were removed. The final components were opened on the back table. The periosteal and capsular tissues, especially posteriorly, around the knee were then systematically injected with a periarticular cocktail consisting of 246mg of Ropivacaine, 0.5mg of Epinephrine, 0.08mg of Clonidine, and 30mg of Ketorolac, diluted to 100cc. On the back table, with the implants opened, the cement was mixed. One batch of high viscosity cement was prepared with vacuum assistance. After the cement was ready a small amount was placed on the cut surface of the patella and the patellar button was clamped into position and held. While the cement was hardening, the cementless knee components were placed. Starting with the tibial component, the tibia was subluxed anteriorly and the lug holes of the component were lined up. The tibia was then impacted with an impactor and mallet until the tibial component was in contact with the tibia. The final polyethylene component was inserted. Then, the femoral component was inserted. The lug holes were aligned and the component was impacted into position. The knee was irrigated with Surgiphor Betadine solution. This was allowed to sit in the knee for 3 minutes and then it was irrigated out with saline. After the cement had finally cured, approximately 15min, the clamp was removed from the patella and the knee was taken through range of motion. The patella was tracking with a no-thumbs technique. The capsule was then reapproximated with a No. 1 Vicryl at multiple locations. The capsule was finally closed with a No. 2 Stratafix, barbed suture. The second dosing of 1g TXA was started. Deep tissues were then reapproximated with 0 Vicryl and 2-0 Vicryl. The skin was closed with a running 3-0 Monocryl in a subcuticular fashion. This was reinforced with skin glue. A Mepilex silver dressing was applied along with a [id number] PAM wrap. A CryoCuff was applied. Brittni was transferred to the hospital bed without difficulty an suffering no apparent complication. Brittni has a good prognosis. Physical therapy will start today and without restrictions, weight-bearing as tolerated. Aspirin 81mg BID will be used for DVT prophylaxis. Date of Procedure: 08/18/24
[2024-08-18] MEDS: fentaNYL 100 MCG/2 ML VIAL IVP (11:35)
--- NOTE | 2024-08-18 12:21 | W.ANESPOSTOP ---
Postoperative Evaluation Date, Time and Location Date Performed: 08/18/24 Time Performed: 12:21 Patient Location: Day Surgery Unit Vital Signs Most Recent Imported Vital Signs: Most Recent Vital Signs Temp Pulse Resp BP Pulse Ox 35.9 C L 81 20 119/52 L 98 08/18/24 11:57 08/18/24 11:57 08/18/24 11:57 08/18/24 11:57 08/18/24 11:57 Pain Score Most Recent Pain Score: Most Recent Pain Score Pain Level 2 08/18/24 11:57 Assessment Mental Status: Awake (Alert & Oriented to Patient Baseline) Airway and Respiratory Function: Patent airway with normal (patient baseline) respiratory exam Cardiovascular Function: Hemodynamically Stable Hydration Status: Adequately Hydrated Nausea & Vomiting: No Nausea or Vomiting Pain: Pain is tolerable per patient Peripheral Nerve Block: Regional nerve block not resolved at time of post operative discharge
--- NOTE | 2024-08-18 14:56 | IN_ITS ---
PT Notes Visit Reasons: Left knee DJD Physical Therapy Day Surgery Initial Evaluation Date: 08/18/2024 Referring Doctor: Haleigh Alamo, Dr. Cartwright PT Orders: PT CONSULT: Status post Ortho surgery Precautions: As tolerated, TEDS x 2 weeks Patient Profile/Admitting Diagnosis: Patient is 73-year-old female presenting status post elective left TKA by Dr. Cartwright on 08/18/2024 under spinal anesthesia. Postop uncomplicated PMHX:Difficult intravenous access Osteoarthritis High cholesterol Hyperthyroidism pt. denies this-states HYPOthroidismVertigo HTN (hypertension) GERD (gastroesophageal reflux disease) Hiatal hernia Surgical History (Updated 08/07/24 @ 10:52 by TOMEKA Church) History of total right knee replacement (12/21/20) Status post hysterectomy with oophorectomy (08/14/19) [place] [facility] [place] with sentinel lymph node biopsies. History of dilatation and curettage History of colonoscopy Ligation of fallopian tube Cholecystectomy Appendectomy Social History/Home Situation: lives with in apt with 4 SATYA with left rail ascending. Pt independent with ADL, cooking, cleaning, driving if she needs to ( usually drives), shopping. Equipment Owned/DME:FWW cane, grab bar infront of toilet and gb in shower/tub. Subjective: Pt reports slight nausea but does not feel like she is going to get sick . She stated she just wants to go get some sleep. Objective: [] General Observation:pt presented semireclined on stretcher with cryocuff to left knee. present. Mental Status: A+O x4 cooperative and motivated Pain: 1/10 left knee ROM: BUE: WFL Right Lower Extremity: WFL hip flexion limited by body habitus Left Lower Extremity: WFL except hip flexion limited by body habitus and knee 0- 92 degrees Strength: Right Upper Extremity: 5/5 Left Upper Extremity: 5/5 Right Lower Extremity: 5/5 Left Lower Extremity: able to perform knee extension LAQ seated, QS and SLR within shortened ROM Sensation: intact Bed Mobility/Transfers: Supine to sit Supervision Sit to stand Supervision Stand to sit supervision Bed to chair supervision with FWW Gait: amb. 150 feet with FWW level surfaces with turns supervision. pt demonstrates decreased knee flexion during swing phase increased lateral weight shift. Stairs 4 6 inch steps with rail with supervision and cues for step to pattern Balance: [] Static Sitting: Normal Dynamic Sitting: good Static Standing: good Dynamic Standing: good- Special Tests: Mobility Limitations Standardized Measure [facility] AM-PAC 6 clicks Basic Mobility Inpatient Short Form: Raw Score: 21 CMS Score: 28.97% Informed Consent/Education: Patient instructed in purpose of PT consult. Packet containing TKA exercise protocol has been given to patient. able to provide supervision and cueing for sequencing on the stairs Treatment: Therex [id number] and training on initial set of exercises that can be done at home have been completed with patient. Assessment: Patient is 73 yo female presents with clinical signs and symptoms consistent w ith current/admitting diagnoses that have resulted to mobility limitations, gait instability, generalized weakness, and impairment of motor control as demonstrated by the following impairment level findings: 1. Decreased strength to left knee major muscle groups 2. Impaired standing balance 3. Limitation of joint range of motion in left knee 4. Impaired functional activity tolerance Impairments are contributing to the following functional limitations: 1. Inability to safely ambulate without assistive device 2. Increase completion time for mobility ADL performance 3. Increased fall risk 4. Inability to safely perform stairs without assistance Patient is assessed as a moderate complexity based on the following: History:73-year-old female with impairment level findings, functional colon itations, and past medical history as indicated above Examination: Demonstrable impairment in strength, balance, and mobility level with underlying impairments and functional limitations as documented above Presentation:evolving Decision Making: moderate Goals: N/A. Plan of Care/Treatment Plan: N/A. DISCHARGE RECOMMENDATIONS: Home with outpatient PT as scheduled TREATMENT CODE/TIME:22214, [id number]/ [id number] Thank you for the opportunity to participate in the care of this patient. [facility]
== END 2024-08-18 14:16 | disposition home or self-care (01) ==
PROVIDERS: PCP Nurse Practitioner; Visit Provider Student in an Organized Health Care Education/Training Program
PROC: (CPT 27447; principal; 2024-08-18 09:15)
DX: M17.12 Unilateral primary osteoarthritis, left knee (principal); G89.18 Other acute postprocedural pain; M25.562 Pain in left knee; E03.9 Hypothyroidism, unspecified; R73.03 Prediabetes; E66.01 Morbid (severe) obesity due to excess calories; I10 Essential (primary) hypertension; Z68.41 Body mass index [BMI] 40.0-44.9, adult
CPT/HCPCS: 27447; 64447; 97110; 97162; C1776; J0171; J0690; J1100; J2003; J2250; J2371; J2401; J2405; J2704; J3010

== ENCOUNTER 2024-09-01 15:51 | Outpatient (CLI) | payer MEDICARE, SELFPAY ==
--- NOTE | 2024-09-01 14:06 | DI.RAD_ITS ---
Exam(s) XR STANDING ALIGNMENT EXAM: XR STANDING ALIGNMENT CLINICAL HISTORY: 1ST POST OP S/P L TKA. TECHNIQUE: 2D digital imaging was performed. COMPARISON: CR XR STANDING ALIGNMENT from 06/26/2024 FINDINGS: 3 views There has been interval placement of a left knee prosthesis. There are now bilateral knee prostheses , both of which appear satisfactory on these images. No evidence of fractures nor obvious loosening of the components of the prostheses bilaterally. Hips appear unremarkable. Left ankle unremarkable. There is a degenerative subarticular cyst in the med ial half of the tibial plafond of the right ankle. There does not appear to be obvious ankle joint s pace narrowing on the AP images. IMPRESSION: The previously present right and more recently placed left knee prosthesis appears satisfactory on th elan images. Other findings as above. DATA REPOSITORY: RADIATION DOSE DELIVERED:
--- NOTE | 2024-09-01 14:06 | DI.RAD_ITS ---
Exam(s) XR KNEE LT 1V EXAM: XR KNEE LT 1V CLINICAL HISTORY: 1ST POST OP S/P L TKA. TECHNIQUE: 2D digital imaging was performed. COMPARISON: CR XR KNEE LT 2V AP,LAT from 06/26/2024 FINDINGS: Single lateral view Position alignment of the components of the recently placed left knee prosthesis Appears satisfactory. No fracture or loosening evident. There is also been patellar resurfacing. IMPRESSION: Stable satisfactory appearance. DATA REPOSITORY: RADIATION DOSE DELIVERED:
== END 2024-09-01 15:52 | disposition home or self-care (01) ==
LOC: DIORS 15:52
PROVIDERS: PCP Nurse Practitioner; Referring Provider Nurse Practitioner; Visit Provider Student in an Organized Health Care Education/Training Program
DX: Z96.652 Presence of left artificial knee joint (principal); Z47.1 Aftercare following joint replacement surgery
CPT/HCPCS: 99024; 73560; 77073

== ENCOUNTER → 2024-09-29 10:13 | Outpatient (BNVA) | payer MEDICARE, SELFPAY | PROVIDERS: PCP Nurse Practitioner; Visit Provider Student in an Organized Health Care Education/Training Program | DX: Z47.1 Aftercare following joint replacement surgery (principal); Z96.652 Presence of left artificial knee joint | CPT/HCPCS: 99024 ==

== ENCOUNTER → 2024-11-10 09:49 | Outpatient (BNVA) | payer MEDICARE, SELFPAY | PROVIDERS: PCP Nurse Practitioner | DX: Z47.1 Aftercare following joint replacement surgery (principal); Z96.652 Presence of left artificial knee joint | CPT/HCPCS: 99024 ==

== ENCOUNTER 2024-11-25 16:29 | Outpatient (CLI) | payer MEDICARE, SELFPAY ==
[2024-11-25 17:03] LABS: Bilirubin Negative (Negative); Blood Large (Negative); Clarity Sl Cloudy (Clear); Glucose Negative (Negative); Ketones Negative (Negative); Leukocyte Esterase Negative (Negative); Nitrite Negative (Negative); Urobilinogen 0.2 mg/dL (Up to 0.2)
[2024-11-25 17:16] LABS: CREATININE 0.8 mg/dL (0.55-1.02); Estimated GFR 77.27 (mL/min/1.73m2)
[2024-11-25 17:18] LABS: Bacteria Negative HPF (Negative); C & S Indicated? No; Crystals Many Amorphous HPF (Negative); Epithelial Cells Rare HPF (Negative); Mucus Negative (Negative); Other Cells Negative (Negative); RBC 20-50 HPF (0-2)
[2024-11-25 17:19] LABS: WBC Negative HPF (0-5)
== END 2024-11-25 16:30 | disposition home or self-care (01) ==
LOC: LBO 16:30
PROVIDERS: PCP Nurse Practitioner; Visit Provider Radiology Radiation Oncology
DX: C54.1 Malignant neoplasm of endometrium (principal)
CPT/HCPCS: 36415; 81003; 81015; 82565

== ENCOUNTER 2024-12-23 13:52 | Inpatient (IN) | payer MEDICARE, SELFPAY ==
[2024-12-23] VITALS (77 sets, daily range): BP systolic 63–155; BP diastolic 33–106; PULSE 58–162; RESP 16–30; TEMP 36.7–37.2; O2SAT 96–100
--- NOTE | 2024-12-23 13:45 | RT.EKG_ITS ---
APPROVED REPORT Exam: Resting ECG Reason for Exam: Tachycardia Patient Location: E HR:122 bpm ECG Measurements Heart Rate 122 AXIS MA [id number] P [id number] QRSd 90 QRS 16 QT 320 T 71 QTc 457 Conclusion Atrial fibrillation 122 pvc No stemi
--- NOTE | 2024-12-23 14:15 | RT.EKG_ITS ---
APPROVED REPORT Exam: Resting ECG Reason for Exam: TACHY Patient Location: E HR:114 bpm ECG Measurements Heart Rate 114 AXIS AR [id number] P [id number] QRSd 95 QRS 44 QT 375 T 139 QTc 498 Conclusion Atrial flutter 114 NO STEMI
--- NOTE | 2024-12-23 14:16 | W.ED.GENAD ---
Discharge Plan Disposition Patient Disposition: Admit to [facility] Discharge Details Clinical Impression: Atrial flutter, Atrial fibrillation with RVR, Hypokalemia, Hypomagnesemia Primary Care Provider: Ann Choi ED Provider: Raul Elkins Home Meds and New Rx's Prescriptions: No Action famotidine [Pepcid] 20 mg tablet 20 mg PO DAILY Qty: 90 3RF fluticasone propionate 50 mcg/actuation spray,suspension 2 spray intranasal DAILY Qty: 16 6RF Rx Instructions: administer into each nostril hydrochlorothiazide 25 mg tablet 25 mg PO DAILY Qty: 90 3RF docusate sodium [Stool Softener] 100 mg tablet 100 mg PO BID Qty: 100 6RF megestrol 40 mg tablet 80 mg PO BID Rx Instructions: x3 weeks then restarting tamoxifen tamoxifen 20 mg tablet 20 mg PO Patient Comments: TAKE ONE TABLET BY MOUTH TWICE A DAY Rx Instructions: To start after completing 3 weeks of Megace cholecalciferol (vitamin D3) [Vitamin D3] 25 mcg (1,000 unit) tablet 2,000 unit PO DAILY Rx Instructions: 10/21/24- Per [facility] nurse, Maria Martin, pt reports she takes 2000 units daily. lovastatin 40 mg tablet 20 mg PO QPM Qty: 90 3RF levothyroxine 75 mcg tablet 75 mcg PO DAILY Qty: 90 3RF acetaminophen 500 mg tablet 1,000 mg PO Q8H PRN Qty: 90 0RF Rx Instructions: Take two tablets up to every 8 hours as needed for pain HPI General Date/Time Provider Initiated Documentation: 12/23/24 14:02. Limitations to Documentation: no limitations. Information obtained by: patient. HPI Narrative: Patient and her 74-year-old female with past medical history of endometrial cancer on oral chemotherapy presents for evaluation on recommendation from her PCP. She states that she went today to her clinic for a regularly scheduled 6-month follow-up appointment to get her prescriptions refilled. She says that she had recently started a new oral chemotherapy medication and has been having some diarrhea over the weekend, but otherwise denies any vomiting, chest pain, shortness of breath. She was unaware that her heart was beating very fast. When she checked into the clinic and was notified that her heart was beating fast and sent to the emergency department. She denies any prior history of cardiac dysrhythmia. She is not on any anticoagulant. Related Data Home Medications ?Medication ?Instructions ?Recorded ?Confirmed fluticasone propionate 50 2 spray intranasal DAILY #16 grams 03/14/22 12/23/24 mcg/actuation nasal spray,suspension famotidine 20 mg tablet (Pepcid) 20 mg PO DAILY #90 tabs 10/16/23 12/23/24 docusate sodium 100 mg tablet 100 mg PO BID #100 tab-caps 12/25/23 12/23/24 (Stool Softener) hydrochlorothiazide 25 mg tablet 25 mg PO DAILY #90 tab-caps 12/25/23 12/23/24 acetaminophen 500 mg tablet 1,000 mg (2 x 500 mg) PO Q8H PRN 08/18/24 12/23/24 pain #90 tabs cholecalciferol (vitamin D3) 25 2,000 unit PO DAILY 10/21/24 12/23/24 mcg (1,000 unit) tablet (Vitamin D3) lovastatin 40 mg tablet 20 mg (1/2 x 40 mg) PO QPM #90 tabs 10/21/24 12/23/24 levothyroxine 75 mcg tablet 75 mcg PO DAILY #90 tab-caps 11/25/24 12/23/24 megestrol 40 mg tablet 80 mg PO BID 12/23/24 12/23/24 tamoxifen 20 mg tablet 20 mg PO 12/23/24 12/23/24 Previous Rx's ?Medication ?Instructions ?Recorded fluticasone propionate 50 2 spray intranasal DAILY #16 grams 03/14/22 mcg/actuation nasal spray,suspension famotidine 20 mg tablet (Pepcid) 20 mg PO DAILY #90 tabs 10/16/23 docusate sodium 100 mg tablet 100 mg PO BID #100 tab-caps 12/25/23 (Stool Softener) hydrochlorothiazide 25 mg tablet 25 mg PO DAILY #90 tab-caps 12/25/23 acetaminophen 500 mg tablet 1,000 mg (2 x 500 mg) PO Q8H PRN 08/18/24 pain #90 tabs lovastatin 40 mg tablet 20 mg (1/2 x 40 mg) PO QPM #90 tabs 10/21/24 levothyroxine 75 mcg tablet 75 mcg PO DAILY #90 tab-caps 11/25/24 Allergies Allergy/AdvReac Type Severity Reaction Status Date / Time penicillin V Allergy Intermediate Rash, fever Verified 12/23/24 14:03 hydralazine AdvReac Unknown Headache/ Verified 12/23/24 14:03 cough General Stated Complaint: Arrhythmia WARREN: 3 Exam Narrative Exam Narrative: Review of Systems: All systems reviewed & are unremarkable except as noted in HPI and below Well-developed, no acute distress Obese NCAT Irregularly irregular rhythm, no hypotension Unlabored respiratory effort, no hypoxia, no crackles Nondistended abdomen Extremities w/o edema no focal neurologic deficits Course Vital Signs Vital signs: Vital Signs Pulse 81 12/23/24 13:57 Respiratory Rate 20 12/23/24 13:57 Blood Pressure 107/97 H 12/23/24 13:57 Pulse Oximetry 99 12/23/24 13:57 Temperature 37.2 C 12/23/24 14:03 Temperature Source Tympanic 12/23/24 14:03 Pulse 81 12/23/24 13:57 Respiratory Rate 20 12/23/24 13:57 Blood Pressure 107/97 H 12/23/24 13:57 Blood Pressure Position Sitting 12/23/24 13:57 Pulse Oximetry 99 12/23/24 13:57 Oxygen Delivery Method Room Air 12/23/24 13:57 Oxygen Flow Rate 0 12/23/24 13:57 Medical Decision Making Emergent evaluation of tacky dysrhythmia. Initial differential includes malignant cardiac dysrhythmia, electrolyte derangement, ACS. Would also consider PE given her malignancy history however the patient has no hypoxia and no shortness of breath. Essentially asymptomatic from a cardiac standpoint. EKG independently interpreted: A-fib 122 with PVCs, no STEMI. No prior in the computer for comparison. Plan for rate control, close cardiac monitoring and lab work to evaluate possible etiology for new onset A-fib. 1450 After 2 doses of diltiazem IV push, the patient did have response with each dose, but then subsequently returned back to tachycardia. It appears to be more consistent with flutter at this time. Will start diltiazem drip continue to monitor. On Dilt drip, patient will have intermittent drops down to controlled rate. I have even seen some normal sinus rhythm breakthroughs. I have given her oral diltiazem as well. Blood work revealed hypomagnesia and hypokalemia. These have been repleted with IV medications.. Thus far blood pressure has been stable. Patient will be admitted to the hospital for further management of her tachydysrhythmia Quality:SDKS Health Related Social Needs: No Data to Display Critical Care Time Critical Care Time Critical Care Time: Yes Total Critical Care Time: 35 Attestation: CRITICAL CARE Upon my evaluation, this patient had a high probability of imminent or life-threatening deterioration due to tachydysrhythmia which required my direct attention, intervention, and personal management. I have personally provided 35 minutes of critical care time exclusive of time spent on separately billable procedures. Time includes review of laboratory data, radiology results, discussion with consultants, and monitoring for potential decompensation. Interventions were performed as documented above PFS All Active Problems (Updated 12/23/24 @ 15:38 by Raul Elkins MD) Hypomagnesemia (Acute) Hypokalemia (Acute) Atrial fibrillation with RVR (Acute) Atrial flutter (Acute) Tachycardia (Acute) Irregular heart rhythm (Acute) Environmental allergies (Acute) Dust, mold, pollen Recurrent carcinoma of endometrium (Acute ~11/2024) Grade 3 determined with bx. 12/08/24 met with PROBATION COUNSELOR - options discussed for treatment Sensorineural hearing loss, bilateral (Acute) 03/12/24 Otolayryngology Endometrial cancer determined by uterine biopsy (Acute ~12/2022) 01/25/23 brain picker, Dr. Armendariz - recurrence at vaginal apex. 02/20/23 F/u Dr Armendariz, will start #2 cycle in 3w will be treated with Chemo 02/16/23 PET Scan scheduled Constipation (Acute 04/08/18) Essential hypertension (Acute 06/07/17) Gastroesophageal reflux disease without esophagitis (Acute 04/08/18) Hypothyroidism (Acute 06/07/17) Obesity (Acute 10/08/17) Pre-diabetes (Acute 06/07/17) Primary osteoarthritis of both knees (Acute 06/07/17) Pure hypercholesterolemia (Acute 06/07/17) Headache (Acute 06/07/17) Gout (Acute 06/07/17) Flat feet, bilateral (Acute) Post-menopausal bleeding (Acute) Cervical stenosis (uterine cervix) (Acute) S/P dilatation and curettage (Acute) 07/09/19 Dr Tijerina, [facility] Med [facility].- Grade 3 Endometrial Adenocarcinoma Endometrial carcinoma (Acute) 07/09/2019 [facility] [place]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 11/11/19 Dr Nuñez [facility] [place], pt undergoing Radiation Therapy. 11/23/22 F/u [facility] - no evidence for regional sugey or distant sites of metastasis 12/2022. Exam under anesthesia with vaginal biopsy consistent with FIGO grade 3 endometrial adenocarcinoma, recurrence. Referral to [facility] oncology placed Medicare annual wellness visit, subsequent (Acute) Osteoarthritis of right knee (Acute) Hypothyroidism (Chronic) Hypertrophic toenail (Acute) Snoring (Acute) Rash (Acute) Itching (Acute) with excoriations.. Mite infestation (Acute) Since March? Possible scabies? Landlord evaluating, but no other apts complaining.. Morbid obesity with body mass index of 45.0-49.9 in adult (Acute) Screening for colon cancer (Acute) Vaginal bleeding (Acute) Vaginal lesion (Acute) 12/08/24 saw PROBATION COUNSELOR - recurrence of endometrial ca. Medical History (Updated 12/23/24 @ 15:38 by Raul Elkins MD) Difficult intravenous access Osteoarthritis High cholesterol Hyperthyroidism pt. denies this-states HYPOthroidism Vertigo HTN (hypertension) GERD (gastroesophageal reflux disease) Hiatal hernia Surgical History (Updated 11/10/24 @ 10:24 by TOMEKA Church) History of total left knee replacement (08/18/24) History of total right knee replacement (12/21/20) Status post hysterectomy with oophorectomy (08/14/19) [place] [facility] [place] with sentinel lymph node biopsies. History of dilatation and curettage History of colonoscopy Ligation of fallopian tube Cholecystectomy Appendectomy Family History Mother Arteriosclerotic heart disease (ASHD) Father , Heart Attack at age 83. Arteriosclerotic heart disease (ASHD) Sister Essential hypertension Sister Sarcoidosis Brother Substance abuse Alcoholism Diabetes Brother , Logging Accident Diabetes Brother Neoplasm Liver Social History Smoking/Tobacco Use Status: Never Smoking risk assessment performed?: Yes Alcohol Intake: current Alcohol Intake frequency: holidays/special occasions only Alcohol type: wine and other Drug use: Never Substance use type: does not use Adopted: No Household members: spouse Housing: apartment Number of Children: 5 Communication Needs: None Pets and animals: No Current gender identity: female What is your relationship status?: Panel score (0-1 are the most socially isolated patients): 1 What type of physical activity do you participate in: walking Duration: 15-30 minutes/day Frequency: 1-2 times per week Seatbelt use: always Working smoke detector in home: Yes Fire extinguisher in home: Yes Carbon monox detector in home: Yes Firearms in home: Yes (pellet gun) Firearms unloaded and locked: Yes Do you feel safe at home: Yes Do you feel safe in your relationship?: Yes
[2024-12-23] MEDS: dilTIAZem 25 MG/5 ML VIAL IVP ×2 (14:38→14:46)
[2024-12-23 14:41] LABS: Abs Immature Grans 0.01 10^3/uL (0.0-0.06); Absolute Basophil Count 0.03 10^3/uL (0.0-0.2); Absolute Eosinophil Count 0.15 10^3/uL (0.0-0.7); Absolute Lymphocyte Count 1.21 10^3/uL (1.2-3.4); Absolute Monocyte Count 0.69 10^3/uL (0.1-0.8); Absolute Neutrophil Count 4.69 10^3/uL (1.2-6.7); Basophils % 0.4 %; Eosinophils % 2.2 %; HCT 38.8 % (36.0-46.0); HGB 12.8 g/dL (11.2-15.7); Immature Grans % 0.1 %; Lymphocytes % 17.8 %; MCV 85 fL (80-95); MPV 10.9 fL (8.0-11.0); Monocytes % 10.2 %; Neutrophils % 69.3 %; Platelet Count 225 10^3/uL (130-400); RBC 4.57 10^6/uL (3.93-5.22); RDW-SD 46.3 fL; WBC 6.78 10^3/uL (4.4-10.8)
[2024-12-23 14:55] LABS: INR 1.1 (0.9-1.1); Prothrombin Time 10.7 sec (9.1-11.1)
[2024-12-23 15:13] LABS: ALT 23 U/L (14-59); AST 26 U/L (15-37); Albumin 3.4 g/dL (3.4-5.0); Alkaline Phosphatase 104 U/L (46-116); Anion Gap 12.4 mmol/L (3-11); BUN 18 mg/dL (7-18); Bilirubin, Total 0.3 mg/dL (0.2-1.0); CO2 23.6 mmol/L (21.0-32.0); CREATININE 0.9 mg/dL (0.55-1.02); Calcium 9.5 mg/dL (8.5-10.1); Chloride 105 mmol/L (98-107); Estimated GFR 67.08 (mL/min/1.73m2); Glucose 104 mg/dL (74-106); Magnesium 1.5 mg/dL (1.8-2.4); NT-proBNP 1756 pg/mL (<300); Potassium 3.1 mmol/L (3.5-5.1); Sodium 141 mmol/L (136-145); Total Protein 7.2 g/dL (6.4-8.2); Troponin I 15 ng/L (<or=51)
[2024-12-23] MEDS: dilTIAZem 125 MG in Normal Saline 100 ML IV (15:15)
[2024-12-23 15:34] LABS: Troponin I 15 ng/L (<or=51)
--- NOTE | 2024-12-23 15:43 | HPE_ITS ---
Date of service: 12/23/24 Time of Service: 15:43 Assessment and Plan Assessment and plan (1) Atrial fibrillation with RVR: Status: Acute Assessment and plan: - New onset, may be in the setting of oral chemotherapy and diarrheal illness - Heart rate was noted to being in the 140s in the ED, did improve after initial IV doses of diltiazem however required IV Dilt drip - Wean Dilt as tolerated - Will start p.o. diltiazem 30 mg twice daily and uptitrate as needed - Given new diagnosis and unknown time of being in A-fib as well as patient having known malignancy, patient will be started on Eliquis tomorrow morning 12/24/2024 -f/u TTE (2) Hypomagnesemia: Status: Acute Assessment and plan: - 1.5 in emergency department, status post replacement - Follow-up a.m. magnesium (3) Essential hypertension: Status: Acute Assessment and plan: - Hold home hydrochlorothiazide - Will consider restarting hydrochlorothiazide based on blood pressures and response to diltiazem (4) Hypothyroidism: Status: Acute Assessment and plan: - Continue home Synthroid History of Present Illness History of Present Illness Chief Complaint: sent by PCP for elevated HR N arrative: 74yo female with PMH endometrial cancer on normal oral chemotherapy, hypertension, hypothyroidism who presents to the emergency department from her PCPs office for concerns of elevated heart rate. Patient stated she was feeling fluttering in her chest going into her PCPs office but was noted as having an elevated heart rate prompting her to present to the emergency department. She denies any headache, lightheadedness, dizziness, chest pain, but has been complaining of some recent diarrhea. In the emergency department patient was noted as being tachycardic with a heart rate of the 140s for which she was given IV diltiazem and did have initial improvement of her heart rate. The rest of her workup including CBC CMP, requiring IV diltiazem. And EKG were unremarkable with the EKG only showing A- fib RVR. While the initial dose of Dilt did help patient's heart rate again elevated prompting her to get an additional dose of IV diltiazem, however ultimately she did end up needing to be placed on diltiazem drip. Ultimately, emergency room physician paged hospitalist for admission for patient with new diagnosis A-fib RVR requiring IV diltiazem. Review of Systems All systems reviewed & are unremarkable except as noted in HPI and below PFSH All Active Problems (Updated 12/23/24 @ 17:11 by REJI DE JESUS) Hypomagnesemia (Acute) Hypokalemia (Acute) Atrial fibrillation with RVR (Acute) Atrial flutter (Acute) Tachycardia (Acute) Irregular heart rhythm (Acute) Environmental allergies (Acute) Dust, mold, pollen Recurrent carcinoma of endometrium (Acute ~11/2024) Grade 3 determined with bx. 12/08/24 met with FRICTION WELDING MACHINE OPERATOR - options discussed for treatment Sensorineural hearing loss, bilateral (Acute) 03/12/24 Otolayryngology Endometrial cancer determined by uterine biopsy (Acute ~12/2022) 01/25/23 technician support association, Dr. Armendariz - recurrence at vaginal apex. 02/20/23 F/u Dr Armendariz, will start #2 cycle in 3w will be treated with Chemo 02/16/23 PET Scan scheduled Constipation (Acute 04/08/18) Essential hypertension (Acute 06/07/17) Gastroesophageal reflux disease without esophagitis (Acute 04/08/18) Hypothyroidism (Acute 06/07/17) Obesity (Acute 10/08/17) Pre-diabetes (Acute 06/07/17) Primary osteoarthritis of both knees (Acute 06/07/17) Pure hypercholesterolemia (Acute 06/07/17) Headache (Acute 06/07/17) Gout (Acute 06/07/17) Flat feet, bilateral (Acute) Post-menopausal bleeding (Acute) Cervical stenosis (uterine cervix) (Acute) S/P dilatation and curettage (Acute) 07/09/19 Dr Tijerina, [facility] Med Ctr.- Grade 3 Endometrial Adenocarcinoma Endometrial carcinoma (Acute) 07/09/2019 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 11/11/19 Dr Nuñez [facility] [place], pt undergoing Radiation Therapy. 11/23/22 F/u [facility] - no evidence for regional sugey or distant sites of metastasis 12/2022. Exam under anesthesia with vaginal biopsy consistent with FIGO grade 3 endometrial adenocarcinoma, recurrence. Referral to [facility] oncology placed Medicare annual wellness visit, subsequent (Acute) Osteoarthritis of right knee (Acute) Hypothyroidism (Chronic) Hypertrophic toenail (Acute) Snoring (Acute) Rash (Acute) Itching (Acute) with excoriations.. Mite infestation (Acute) Since March? Possible scabies? Landlord evaluating, but no other apts complaining.. Morbid obesity with body mass index of 45.0-49.9 in adult (Acute) Screening for colon cancer (Acute) Vaginal bleeding (Acute) Vaginal lesion (Acute) 12/08/24 saw FRICTION WELDING MACHINE OPERATOR - recurrence of endometrial ca. Medical History (Updated 12/23/24 @ 17:11 by REJI DE JESUS) Difficult intravenous access Osteoarthritis High cholesterol Hyperthyroidism pt. denies this-states HYPOthroidism Vertigo HTN (hypertension) GERD (gastroesophageal reflux disease) Hiatal hernia Surgical History (Updated 11/10/24 @ 10:24 by TOMEKA Church) History of total left knee replacement (08/18/24) History of total right knee replacement (12/21/20) Status post hysterectomy with oophorectomy (08/14/19) [place] [facility] [place]BSO with sentinel lymph node biopsies. History of dilatation and curettage History of colonoscopy Ligation of fallopian tube Cholecystectomy Appendectomy Family History Mother Arteriosclerotic heart disease (ASHD) Father , Heart Attack at age 83. Arteriosclerotic heart disease (ASHD) Sister Essential hypertension Sister Sarcoidosis Brother Substance abuse Alcoholism Diabetes Brother , Logging Accident Diabetes Brother Neoplasm Liver Social History Smoking/Tobacco Use Status: Never Smoking risk assessment performed?: Yes Alcohol Intake: current Alcohol Intake frequency: holidays/special occasions only Alcohol type: wine and other Drug use: Never Substance use type: does not use Adopted: No Household members: spouse Housing: apartment Number of Children: 5 Communication Needs: None Pets and animals: No Current gender identity: female What is your relationship status?: Panel score (0-1 are the most socially isolated patients): 1 What type of physical activity do you participate in: walking Duration: 15-30 minutes/day Frequency: 1-2 times per week Seatbelt use: always Working smoke detector in home: Yes Fire extinguisher in home: Yes Carbon monox detector in home: Yes Firearms in home: Yes (pellet gun) Firearms unloaded and locked: Yes Do you feel safe at home: Yes Do you feel safe in your relationship?: Yes Meds Allergies and Home Medications Allergies Allergy/AdvReac Type Severity Reaction Status Date / Time penicillin V Allergy Intermediate Rash, fever Verified 12/23/24 14:03 hydralazine AdvReac Unknown Headache/ Verified 12/23/24 14:03 cough Home Medications ?Medication ?Instructions ?Recorded ?Confirmed ?Type fluticasone propionate 50 2 spray intranasal DAILY #16 grams 03/14/22 12/23/24 Rx mcg/actuation nasal spray,suspension famotidine 20 mg tablet (Pepcid) 20 mg PO DAILY #90 tabs 10/16/23 12/23/24 Rx docusate sodium 100 mg tablet 100 mg PO BID #100 tab-caps 12/25/23 12/23/24 Rx (Stool Softener) hydrochlorothiazide 25 mg tablet 25 mg PO DAILY #90 tab-caps 12/25/23 12/23/24 Rx acetaminophen 500 mg tablet 1,000 mg (2 x 500 mg) PO Q8H PRN 08/18/24 12/23/24 Rx pain #90 tabs cholecalciferol (vitamin D3) 25 2,000 unit PO DAILY 10/21/24 12/23/24 History mcg (1,000 unit) tablet (Vitamin D3) lovastatin 40 mg tablet 20 mg (1/2 x 40 mg) PO QPM #90 tabs 10/21/24 12/23/24 Rx levothyroxine 75 mcg tablet 75 mcg PO DAILY #90 tab-caps 11/25/24 12/23/24 Rx megestrol 40 mg tablet 80 mg PO BID 12/23/24 12/23/24 History tamoxifen 20 mg tablet 20 mg PO 12/23/24 12/23/24 History Exam Narrative Exam Narrative: Well-appearing older female laying in bed in no acute distress, ANO x 4, heart irregularly irregular with rates in the 140s, lungs good auscultation bilaterally, abdomen soft, nontender, nondistended Results Labs 12/23/24 14:25 12/23/24 14:25 Labs: Laboratory Results - last 24 hr 12/23/24 12/23/24 14:25 15:04 WBC 6.78 RBC 4.57 Hgb 12.8 Hct 38.8 MCV 85 MCH 28.0 MCHC 33.0 RDW 15.0 H Plt Count 225 MPV 10.9 Immature Gran % 0.1 Neutrophils % 69.3 Lymphocytes % 17.8 Monocytes % 10.2 Eosinophils % 2.2 Basophils % 0.4 Nucleated RBC % 0.0 Absolute Neutrophils 4.69 Absolute Lymphocytes 1.21 Absolute Monocytes 0.69 Absolute Eosinophils 0.15 Absolute Basophils 0.03 PT 10.7 INR 1.1 Sodium 141 Potassium 3.1 L Chloride 105 Carbon Dioxide 23.6 Anion Gap 12.4 H BUN 18 Creatinine 0.9 Est GFR (CKD-EPI 2020) 67.08 Glucose 104 Calcium 9.5 Magnesium 1.5 L Total Bilirubin 0.3 AST 26 ALT 23 Alkaline Phosphatase 104 Troponin I 15 15 NT-Pro-B Natriuret Pep 1756 H Total Protein 7.2 Albumin 3.4 Last Vital Signs Temp 98.9 F 12/23/24 14:03 Pulse 138 H 12/23/24 14:50 Resp 28 H 12/23/24 14:50 BP 133/71 12/23/24 14:46 Pulse Ox 99 12/23/24 14:50 Time Spent Time spent with Patient: >75 minutes Time was spent: preparing to see the patient(eg.review tests), obtaining and/or reviewing separately otained hiistory, ordering medications,tests, procedures, referring, communicating with other health special needs caregiver, indepentently interpreting results, counseling the patient and care coordination
[2024-12-23] MEDS: MAGNESIUM SULFATE 2 GM/50 ML BAG IVINF (15:53)
[2024-12-23] MEDS: POTASSIUM CHLORIDE 10 MEQ/100 ML BAG 100 MEQ IV_INF ×2 (15:54→16:50)
[2024-12-23] MEDS: dilTIAZem CD 120 MG CAPCR PO ×2 (16:02)
[2024-12-23 19:13] LABS: Troponin I 16 ng/L (<or=51)
--- NOTE | 2024-12-23 20:00 | RT.EKG_ITS ---
APPROVED REPORT Exam: Resting ECG Reason for Exam: Conversion out of Atrial Fibrillation Patient Location: I HR:67 bpm ECG Measurements Heart Rate 67 AXIS ID 137 P 61 QRSd 94 QRS 47 QT 426 T 56 QTc 450 Conclusion Sinus rhythm...normal P axis, V-rate 50- 99 Atrial premature complex...SV complex w/ short R-R interval Otherwise normal ECG
[2024-12-23] MEDS: Normal Saline Flush 10 ML SYR IVP ×2 (21:33→21:41)
[2024-12-23] MEDS: Loperamide 2 MG CAP 4 MG PO (23:00)
[2024-12-24] VITALS (23 sets, daily range): BP systolic 103–136; BP diastolic 56–82; PULSE 63–79; RESP 20–27; TEMP 37–37.2; O2SAT 93–100
[2024-12-24 01:22] LABS: C Diff PCR Negative (Negative); EPI 027-NAP1-B1 PRESUMPTIVE NEGATIVE
[2024-12-24] MEDS: Levothyroxine 75 MCG TAB PO (05:15)
[2024-12-24 06:37] LABS: HCT 36.8 % (36.0-46.0); HGB 12.2 g/dL (11.2-15.7); MCHC 33.2 % (32.0-36.0); MCV 85 fL (80-95); MPV 10.7 fL (8.0-11.0); Platelet Count 188 10^3/uL (130-400); RBC 4.35 10^6/uL (3.93-5.22); RDW 15.1 % (11.7-14.6); RDW-SD 46.7 fL; WBC 5.17 10^3/uL (4.4-10.8)
[2024-12-24 07:00] LABS: BUN 15 mg/dL (7-18); CREATININE 0.7 mg/dL (0.55-1.02); Chloride 107 mmol/L (98-107); Glucose 105 mg/dL (74-106); Potassium 3.1 mmol/L (3.5-5.1); Sodium 142 mmol/L (136-145)
[2024-12-24] MEDS: Famotidine 20 MG TAB PO (08:14)
[2024-12-24] MEDS: Enoxaparin 40 MG/0.4 ML SYR SC (08:14)
[2024-12-24] MEDS: Normal Saline Flush 10 ML SYR IVP (08:14)
--- NOTE | 2024-12-24 08:57 | PDOC.CMIN ---
Date of service: 12/24/24 Time of Service: 08:57 Care Management Initial Assmt Initial Assessment Reason for Hospitalization: Afib Functional Status/Living Situation Patient Presentation: Brittni was sitting up on the side of the bed visiting with her when CM met with her. She was admitted with afib but rapidly converted to NSR a few hours later. She will be discharged home on Eliquis and Diltiazem. CM contacted her pharmacy and learned that her copay for the Eliquis will only be $2.00. Brtitni lives in an apartment in [place] with her Grover. They had 5 children but one is . The other 4 all live out of state. Two live in [place], one lives in [place] and the 4th lives in [place], [place]. Brittni is retired but had many different jobs during her working years. She is independnet at baseline and does not receive any community services. They do have [facility] support with annual visits from the nurse and social media developer. Town of Residence: [place] Resides with: Spouse (Grover) Significant Other/Family: Out of area (all children live out of state) Natural Supports: family Employment Status: Retired Instrumental Activities of Daily Living (ADLs): Independent Medications Medication Management: No Issues/Barriers identified Advance Directives Advance Directives: Do you have an Advance Directive: N 08/21/17 13:21 AD On File at [facility]: N 08/21/17 13:21 Date Asked 11/25/24 11/25/24 16:30 AD Date Reviewed COLST On File at [facility] COLST Date Scanned Code Status Resuscitation Status Full Code Insurance Coverage/Financial Issues Insurance: Medicare Financial Assist 100 Care Team Visit Care Team Role Provider Type Ann Choi NP Primary Care Provider NURSE PRACTITIONER Raul Elkins MD Emergency Provider [facility] STAFF PHYSICIAN Duke Danielson MD Admit Provider [facility] STAFF PHYSICIAN Attending Provider Discharge Potential Discharge Needs: PCP F/U Appt Anticipated Barriers to Discharge: None Identified Patient/Family Education Needs: Review discharge instructions, discuss Ask Me Three Transportation: Private vehicle Plan: Anticipate Brittni will be discharged home with no new services when medically cleared. She will follow up with her PCP and plan of care and transport with family. CM will follow and continue to support discharge planning efforts. Social Determinants of Health Screening Social Determinants of health last assessed in clinic: 12/24/24 Will the Patient Participate in the Screening?: Yes Do you worry about having a steady place to live?: no Problems where you live: no known problems In the past 12 months, have you had to go without electric, gas, oil or water in your home?: no 1. Within the past 12 months, we worried whether our food would run out before we got money to buy more.: Never true 2. Within the past 12 months, the food we bought just didn't last and we didn't have money to get more.: Never true Has lack of transportation kept you from medical appointments or from doing things needed for daily living?: no Has anyone in your life made you feel unsafe or unsupported?: no How hard is it for you to pay for the very basics like food, housing, medical care, and heating? Would you say it is:: Not hard at all Do you want help finding or keeping work or a job?: I do not need or want help If for any reason you need help with day-to-day activities such as bathing, preparing meals, shopping, managing finances, etc., do you get the help you need?: I don?t need any help How often do you feel lonely or isolated from those around you?: Never Do you speak a language other than Nicaraguan at home?: No Does the patient want assistance with any of the above?: No Health Related Social Needs Health related social needs details: patient states no housing difficulties PFSH All Active Problems (Updated 12/24/24 @ 12:04 by Duke Danielson MD) Hypomagnesemia (Acute) Hypokalemia (Acute) Atrial fibrillation with RVR (Acute) Atrial flutter (Acute) Tachycardia (Acute) Irregular heart rhythm (Acute) Environmental allergies (Acute) Dust, mold, pollen Recurrent carcinoma of endometrium (Acute ~11/2024) Grade 3 determined with bx. 12/08/24 met with LEGISLATIVE ANALYST - options discussed for treatment Sensorineural hearing loss, bilateral (Acute) 03/12/24 Otolayryngology Endometrial cancer determined by uterine biopsy (Acute ~12/2022) 01/25/23 device sales consultant, Dr. Armendariz - recurrence at vaginal apex. 02/20/23 F/u Dr Armendariz, will start #2 cycle in 3w will be treated with Chemo 02/16/23 PET Scan scheduled Constipation (Acute 04/08/18) Essential hypertension (Acute 06/07/17) Gastroesophageal reflux disease without esophagitis (Acute 04/08/18) Hypothyroidism (Acute 06/07/17) Obesity (Acute 10/08/17) Pre-diabetes (Acute 06/07/17) Primary osteoarthritis of both knees (Acute 06/07/17) Pure hypercholesterolemia (Acute 06/07/17) Headache (Acute 06/07/17) Gout (Acute 06/07/17) Flat feet, bilateral (Acute) Post-menopausal bleeding (Acute) Cervical stenosis (uterine cervix) (Acute) S/P dilatation and curettage (Acute) 07/09/19 Dr Tijerina, [facility] Med Ctr.- Grade 3 Endometrial Adenocarcinoma Endometrial carcinoma (Acute) 07/09/2019 [facility] PASTRY COOK HELPER Stage IB grade 3 [place] [facility] [place] with [place] lymph node biopsies. 11/11/19 [place] Nu[place] [facility] [place] Radiation Therapy. 11/23/22 F/u [facility] - no evidence for regional sugey or distant sites of metastasis 12/2022. Exam under anesthesia with vaginal biopsy consistent with FIGO grade 3 endometrial adenocarcinoma, recurrence. Referral to [facility] AUDIO TECHNICIAN oncology placed Medicare annual wellness visit, subsequent (Acute) Osteoarthritis of right knee (Acute) Hypothyroidism (Chronic) Hypertrophic toenail (Acute) Snoring (Acute) Rash (Acute) Itching (Acute) with excoriations.. Mite infestation (Acute) Since March? Possible scabies? Landlord evaluating, but no other apts complaining.. Morbid obesity with body mass index of 45.0-49.9 in adult (Acute) Screening for colon cancer (Acute) Vaginal bleeding (Acute) Vaginal lesion (Acute) 12/08/24 saw LEGISLATIVE ANALYST - recurrence of endometrial ca. Medical History (Updated 12/24/24 @ 12:04 by Duke Danielson MD) Difficult intravenous access Osteoarthritis High cholesterol Hyperthyroidism pt. denies this-states HYPOthroidism Vertigo HTN (hypertension) GERD (gastroesophageal reflux disease) Hiatal hernia Surgical History (Updated 11/10/24 @ 10:24 by TOMEKA Church) History of total left knee replacement (08/18/24) History of total right knee replacement (12/21/20) Status post hysterectomy with oophorectomy (08/14/19) [place] [facility] [place] with sentinel lymph node biopsies. History of dilatation and curettage History of colonoscopy Ligation of fallopian tube Cholecystectomy Appendectomy Family History Mother Arteriosclerotic heart disease (ASHD) Father , Heart Attack at age 83. Arteriosclerotic heart disease (ASHD) Sister Essential hypertension Sister Sarcoidosis Brother Substance abuse Alcoholism Diabetes Brother , Logging Accident Diabetes Brother Neoplasm Liver Social History Smoking/Tobacco Use Status: Never Smoking risk assessment performed?: Yes Alcohol Intake: current Alcohol Intake frequency: holidays/special occasions only Alcohol type: wine and other Drug use: Never Substance use type: does not use Adopted: No Household members: spouse Housing: apartment Number of Children: 5 Communication Needs: None Pets and animals: No Current gender identity: female What is your relationship status?: Panel score (0-1 are the most socially isolated patients): 1 What type of physical activity do you participate in: walking Duration: 15-30 minutes/day Frequency: 1-2 times per week Seatbelt use: always Working smoke detector in home: Yes Fire extinguisher in home: Yes Carbon monox detector in home: Yes Firearms in home: Yes (pellet gun) Firearms unloaded and locked: Yes Do you feel safe at home: Yes Do you feel safe in your relationship?: Yes
[2024-12-24] MEDS: Loperamide 2 MG CAP 4 MG PO (09:41)
--- NOTE | 2024-12-24 10:30 | DI.US_ITS ---
APPROVED REPORT EXAM: Comprehensive 2D, Doppler, and color-flow Echocardiogram Patient Location: In-Patient Room/Bed: 219 Indications: Afib Other Information Study Quality: Fair. Technically limited study due to body habitus. Conclusion Technically difficult study Normal left ventricular wall thickness and chamber size. Ejection fraction is 60%. Overall wall mot ion appears within the range of normal Normal right ventricular size and function Both atria are moderately enlarged Aortic valve is not well-visualized. There is trace aortic regurgitation Normal mitral valve with mild regurgitation Normal tricuspid valve with mild regurgitation. Estimated right ventricular systolic pressure is 44 mmHg Wall motion Left Ventricle The left ventricle is normal size. The left ventricular systolic function is normal. The left ventric ular ejection fraction is within the normal range. There is normal left ventricular wall thickness. T here is normal LV segmental wall motion. There is no ventricular septal defect visualized. LVEF is 60 %. Right Ventricle The right ventricle is normal size. The right ventricular systolic function is normal. Atria Left atrium is moderately dilated. Right atrium is moderately dilated. The interatrial septum is inta ct with no evidence for an atrial septal defect. Aortic Valve Valve is not well-visualized There is no aortic valvular stenosis. Trace aortic regurgitation. Mitral Valve The mitral valve is normal in structure. No evidence of mitral valve stenosis. mild mitral regurgitat ion. Tricuspid Valve The tricuspid valve is normal in structure. There is no tricuspid valve stenosis. Mild tricuspid regu rgitation. The RVSP is 44 mmHg. Pulmonic Valve The pulmonary valve is normal in structure. There is no pulmonic valvular stenosis. There is no pulmo isaac valvular regurgitation. Great Vessels The aortic root is normal in size. Ascending aorta is not well visualized. Aortic arch is normal in c aliber. IVC is normal in size and collapses >50% with inspiration. Pericardium There is no pericardial effusion. 2D Dimensions IVSD d PLAX 0.86 cm F: 0.6-1.0 Ao Root d 3.01 cm F: 2.7 - 3.3 LVPW d PLAX 0.86 cm F: 0.6 - 1.0 LVID d PLAX 3.91 cm F: 3.8 - 5.2 LVDs 2.67 cm F: 2.2 - 3.5 LV EF Teichholz 60.3 % FS 31.64 % LV EDV (Teich) 66.4 mL LV ESV (Teich) 26.4 mL Stroke Vol Index (Teich) 21.17 M-Mode TAPSE 2.24 cm (M/F) >1.7 Auto EF LV EDV A4C 108.6 mL LV EDV A2C 151.4 mL LV EDV BP 128.0 mL LV ESV A4C 42.6 mL LV ESV A2C 60.0 mL LV ESV BP 50.7 mL LVEF(%) A4C 60.8 % LVEF(%) A2C 60.3 % LVEF(%) BP 60.4 % LV SV A4C 66.0 ml LV SV A2C 91.3 ml LV SV BP 77.3 ml LV CO A4C 4.6 L/min LV CO A2C 6.2 L/min LV CO BP 5.4 L/min HR A4C 69.10 BPM HR A2C 67.68 BPM LV EDV Index (BP) LA Volume LA Length A4C 5.7 cm LA Length A2C 6.1 cm LA Area A4C s 18.26 cm2 LA Area A2C s 22.52 cm2 LA Vol A4C A-L 49.71 mL LA Vol A2C A-L 70.14 mL LA Vol Biplane A-L 61.3 mL LA Vol/BSA A4C A-L LA Vol/BSA A2C A-L LA Vol/BSA BP A-L 32.4 mL/m2 LA Vol A4C MOD 47.9 mL LA Vol A2C MOD 66.8 mL LA Vol BP MOD 58.4 mL RA Volume RA Area A4C 18.3 cm2 RA ESV A4C (A-L) 51.3mL RA Vol/BSA A4C A-L RA Length A4C 5.5 cm RA ESV A4C (MOD) 49.7mL LV Diastology MV E' medial 0.121 (>0.07 m/s) MV E Vmax 0.97 (0.4-1.3 m/s) MV E/E' MED 7.98 (<14) MV A Vmax 0.70 (0.4-1.3 m/s) MV E' lateral 0.121 (>0.1 m/s) E/A Ratio 1.4 MV E/E' LAT 7.98 (<14) MV E' Average 0.121 m/s MV E/E'(average) 7.98 Aortic Valve AoV Vmax 1.28 m/s LVOT Vmax 1.13 m/s AoV Peak Grad 6.5 mmHg LVOT Peak Grad 5.1 mmHg AoV Area (Vmax) 2.78 cm2 LVOT VTI 0.252 m AoV VTI 0.312 m LVOT Mean Grad 2.7 mmHg AoV Mean Manish. 0.87 m/s LVOT SV 79.36 mL AoV Mean Grad 3.5 mmHg LVOT Diam s 2.00 cm AoV Area (VTI) 2.54 cm2 AV Regurg Peak Gr. 6.52 mmHg Velocity Ratio 0.88 Mitral Valve MV DT 169 (160-240 msec) Pulmonary Valve PV Vmax 0.91 (0.5-1.5 m/s) RVOT Vmax 0.95 m/s PV Peak Grad 3.3 mmHg RVOT Peak Gr. 3.6 mmHg PV Mean Manish 0.69 m/s RVOT VTI 0.181 m PV Mean Grad 2.1 mmHg RVOT Mean Gr. 1.7 mmHg Tricuspid Valve RA Pressure 3.00 mmHg TR Vmax 3.20 m/s TV S' 0.16 m/s TR Peak Grad 40.8 mmHg RVSP (TR) 43.9 mmHg
--- NOTE | 2024-12-24 12:05 | W.PM.DS.N ---
Date of service: 12/24/24 Time of Service: 12:05 DS: Diagnosis Discharge Diagnosis (1) Atrial fibrillation with RVR: Status: Acute (2) Hypomagnesemia: Status: Acute (3) Essential hypertension: Status: Acute (4) Hypothyroidism: Status: Acute Discharge Plan Disposition Patient Disposition: Home Condition: Good Discharge Details Reason For Visit: A-fib RVR Admit Date/Time: 12/23/24 15:43 Admit Provider: Duke Danielson Attending Provider: Duke Danielson Primary Care Provider: Ann Choi Hospital Course Hospital Course: Patient initially presented from PCPs office with concerns for rapid heart rate and was found to be in a-fib RVR. While in the ED she was given 2x IV doses of dilt, along with 240mg PO long acting dilt but required dilt drip. However, she converted to NSR ~8pm 12/23. Given that she recieved long-acting dilt later in the day, decision was made to start her on 180mg PO long aciting dilt HS. Additionally, given her HTN, malignancy, age and gender, it was determined that she would benefit from being starting eliquis. Patient also had TTE done, but was nt read at the time of discharge. Given that the patent converted to NSR and was in stable condition it was determined that she was stable for discharge home. Home Meds and New Rx's Prescriptions: New Eliquis 5 mg tablet 5 mg PO BID Qty: 90 0RF diltiazem HCl 180 mg Capsule,Extended Release 24hr 180 mg PO HS Qty: 90 0RF Continued famotidine [Pepcid] 20 mg tablet 20 mg PO DAILY Qty: 90 3RF fluticasone propionate 50 mcg/actuation spray,suspension 2 spray intranasal DAILY Qty: 16 6RF Rx Instructions: administer into each nostril hydrochlorothiazide 25 mg tablet 25 mg PO DAILY Qty: 90 3RF docusate sodium [Stool Softener] 100 mg tablet 100 mg PO BID Qty: 100 6RF megestrol 40 mg tablet 80 mg PO BID Rx Instructions: x3 weeks then restarting tamoxifen tamoxifen 20 mg tablet 20 mg PO Patient Comments: TAKE ONE TABLET BY MOUTH TWICE A DAY Rx Instructions: To start after completing 3 weeks of Megace cholecalciferol (vitamin D3) [Vitamin D3] 25 mcg (1,000 unit) tablet 2,000 unit PO DAILY Rx Instructions: 10/21/24- Per [facility] nurse, Maria Martin pt reports she takes 2000 units daily. lovastatin 40 mg tablet 20 mg PO QPM Qty: 90 3RF levothyroxine 75 mcg tablet 75 mcg PO DAILY Qty: 90 3RF acetaminophen 500 mg tablet 1,000 mg PO Q8H PRN Qty: 90 0RF Rx Instructions: Take two tablets up to every 8 hours as needed for pain Discharge Instructions Activity:: Activity as Tolerated Equipment/Supplies:: No Equipment Needed Diet:: As Tolerated Discharge Orders Discharge Orders: Discharge Order (Routine); Ordered 12/24/24 Ordered By: Duke Danielson DS: Summary Time Spent with Patient providing and/or coordinating discharge services: Greater than 30 minutes Status at Discharge Functional status at discharge: independent ambulation Overall status at discharge: patient is back to baseline Mental Status: mental status grossly normal Speech and Movement: speech and movement normal Mood: congruent mood Affect: normal affect Quality:SDOH Health Related Social Needs: Health related social needs details patient states no housing difficulties Health related social needs details: patient states no housing difficulties Exam Narrative Exam Narrative: Well-appearing older female laying in bed in no acute distress, ANO x 4, heart regular rate and rhythm, lungs good auscultation bilaterally, abdomen soft, nontender, nondistended Psych Mental Status: mental status grossly normal Speech and Movement: speech and movement normal Mood: congruent mood Affect: normal affect DS: Data Vitals/I&O Vitals and I&O: Vital Signs Temperature 99.0 F 12/24/24 08:30 Temperature Source Temporal Artery Scan 12/24/24 08:30 Pulse 68 12/24/24 08:02 Pulse 67 12/24/24 11:00 Respiratory Rate 26 H 12/24/24 11:00 Respiratory Effort Normal 12/23/24 17:15 Respiratory Depth Normal 12/23/24 17:15 Respiratory Pattern Normal 12/23/24 17:15 Blood Pressure 136/58 L 12/24/24 08:01 Blood Pressure Mean 80 12/24/24 08:01 Blood Pressure Position Supine 12/23/24 17:15 Pulse Oximetry 97 12/24/24 08:02 Oxygen Delivery Method Room Air 12/23/24 17:15 Oxygen Flow Rate 0 12/23/24 17:15 Pain Level 0 12/23/24 17:15 Intake & Output 12/23/24 12/24/24 12/24/24 17:59 05:59 17:59 Intake Total 151.75 / 151.75 375.167 / 526.917 Output Total 475 / 475 295 / 295 Balance 151.75 / 151.75 -99.833 / 51.917 -295 / -295 Weight 213 lb 6.519 oz 214 lb 15.211 oz Intake: IV 151.75 / 151.75 45.167 / 196.917 Oral 330 / 330 Output: Urine 475 / 475 295 / 295 Other: Urine Color Light Swetha Yellow Urine Appearance Clear Clear Urine Odor None Normal Stool Size Moderate Small Stool Characteristics Liquid Liquid Brown Data Completed and Pending Labs on day of discharge: Labs from last 24 hours 12/24/24 06:00: WBC 5.17, RBC 4.35, Hgb 12.2, Hct 36.8, MCV 85, MCH 28.0, MCHC 33.2, RDW 15.1 H, Plt Count 188, MPV 10.7, Sodium 142, Potassium 3.1 L, Chloride 107, Carbon Dioxide 24.0, Anion Gap 11.0, BUN 15, Creatinine 0.7, Est GFR (CKD-EPI 2020) 90.70, Glucose 105, Calcium 9.0 12/24/24 00:18: Stl C.difficile Tox PCR Negative 12/23/24 15:04: Troponin I 15 12/23/24 14:25: WBC 6.78, RBC 4.57, Hgb 12.8, Hct 38.8, MCV 85, MCH 28.0, MCHC 33.0, RDW 15.0 H, Plt Count 225, MPV 10.9, Immature Gran % 0.1, Neutrophils % 69.3, Lymphocytes % 17.8, Monocytes % 10.2, Eosinophils % 2.2, Basophils % 0.4, Nucleated RBC % 0.0, Absolute Neutrophils 4.69, Absolute Lymphocytes 1.21, Absolute Monocytes 0.69, Absolute Eosinophils 0.15, Absolute Basophils 0.03, PT 10.7, INR 1.1, Sodium 141, Potassium 3.1 L, Chloride 105, Carbon Dioxide 23.6, Anion Gap 12.4 H, BUN 18, Creatinine 0.9, Est GFR (CKD-EPI 2021) 67.08, Glucose 104, Calcium 9.5, Magnesium 1.5 L, Total Bilirubin 0.3, AST 26, ALT 23, Alkaline Phosphatase 104, Troponin I 15, NT-Pro-B Natriuret Pep 1756 H, Total Protein 7.2, Albumin 3.4 12/23/24 06:43: Troponin I 16 PFSH All Active Problems (Updated 12/24/24 @ 12:04 by Duke Danielson MD) Hypomagnesemia (Acute) Hypokalemia (Acute) Atrial fibrillation with RVR (Acute) Atrial flutter (Acute) Tachycardia (Acute) Irregular heart rhythm (Acute) Environmental allergies (Acute) Dust, mold, pollen Recurrent carcinoma of endometrium (Acute ~11/2024) Grade 3 determined with bx. 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 Armendariz - recurrence at vaginal apex. 02/20/23 F/u Dr Armendariz, will start #2 cycle in 3w will be treated with Chemo 02/16/23 PET Scan scheduled Constipation (Acute 04/08/18) Essential hypertension (Acute 06/07/17) Gastroesophageal reflux disease without esophagitis (Acute 04/08/18) Hypothyroidism (Acute 06/07/17) Obesity (Acute 10/08/17) Pre-diabetes (Acute 06/07/17) Primary osteoarthritis of both knees (Acute 06/07/17) Pure hypercholesterolemia (Acute 06/07/17) Headache (Acute 06/07/17) Gout (Acute 06/07/17) Flat feet, bilateral (Acute) Post-menopausal bleeding (Acute) Cervical stenosis (uterine cervix) (Acute) S/P dilatation and curettage (Acute) 07/09/19 Dr Tijerina, [facility] Med Ctr.- Grade 3 Endometrial Adenocarcinoma Endometrial carcinoma (Acute) 07/09/2019 [facility] [place] SUPERVISOR WARPING DEPARTMENT Stage IB grade 3 08[place]14[place] [facility] [place]O with sentinel lymph node biopsies. 11/11/19 Dr Nuñez [facility] [place], pt undergoing Radiation Therapy. 11/23/22 F/u [facility] - no evidence for regional sugey or distant sites of metastasis 12/2022. Exam under anesthesia with vaginal biopsy consistent with FIGO grade 3 endometrial adenocarcinoma, recurrence. Referral to [facility] MAINTENANCE OF WAY SUPERINTENDENT oncology placed Medicare annual wellness visit, subsequent (Acute) Osteoarthritis of right knee (Acute) Hypothyroidism (Chronic) Hypertrophic toenail (Acute) Snoring (Acute) Rash (Acute) Itching (Acute) with excoriations.. Mite infestation (Acute) Since March? Possible scabies? Landlord evaluating, but no other apts complaining.. Morbid obesity with body mass index of 45.0-49.9 in adult (Acute) Screening for colon cancer (Acute) Vaginal bleeding (Acute) Vaginal lesion (Acute) 12/08/24 saw CUSTOM APPLICATOR - recurrence of endometrial ca. Medical History (Updated 12/24/24 @ 12:04 by Duke Danielson MD) Difficult intravenous access Osteoarthritis High cholesterol Hyperthyroidism pt. denies this-states HYPOthroidism Vertigo HTN (hypertension) GERD (gastroesophageal reflux disease) Hiatal hernia Surgical History (Updated 11/10/24 @ 10:24 by TOMEKA Church) History of total left knee replacement (08/18/24) History of total right knee replacement (12/21/20) Status post hysterectomy with oophorectomy (08/14/19) [place] [facility] [place]/BSO with sentinel lymph node biopsies. History of dilatation and curettage History of colonoscopy Ligation of fallopian tube Cholecystectomy Appendectomy Family History Mother Arteriosclerotic heart disease (ASHD) Father , Heart Attack at age 83. Arteriosclerotic heart disease (ASHD) Sister Essential hypertension Sister Sarcoidosis Brother Substance abuse Alcoholism Diabetes Brother , Logging Accident Diabetes Brother Neoplasm Liver Social History Smoking/Tobacco Use Status: Never Smoking risk assessment performed?: Yes Alcohol Intake: current Alcohol Intake frequency: holidays/special occasions only Alcohol type: wine and other Drug use: Never Substance use type: does not use Adopted: No Household members: spouse Housing: apartment Number of Children: 5 Communication Needs: None Pets and animals: No Current gender identity: female What is your relationship status?: Panel score (0-1 are the most socially isolated patients): 1 What type of physical activity do you participate in: walking Duration: 15-30 minutes/day Frequency: 1-2 times per week Seatbelt use: always Working smoke detector in home: Yes Fire extinguisher in home: Yes Carbon monox detector in home: Yes Firearms in home: Yes (pellet gun) Firearms unloaded and locked: Yes Do you feel safe at home: Yes Do you feel safe in your relationship?: Yes Time Spent with Patient Time Spent with Patient: <45 minutes Time was spent: preparing to see the patient(eg.review tests), obtaining and/or reviewing separately otained hiistory, ordering medications,tests, procedures, referring, communicating with other health manager care, indepentently interpreting results, counseling the patient and care coordination
== END 2024-12-24 12:47 | disposition home or self-care (01) | DRG 309 ==
LOC: ER 15:38 → ICU 17:11
PROVIDERS: Internal Medicine; Admitting Provider Family Medicine; Emergency Provider Emergency Medicine; PCP Nurse Practitioner; Responsible Provider Family Medicine; Visit Provider Family Medicine
DX: I48.91 Unspecified atrial fibrillation (principal); Z68.41 Body mass index [BMI] 40.0-44.9, adult; I10 Essential (primary) hypertension; E83.42 Hypomagnesemia; E03.9 Hypothyroidism, unspecified; I48.92 Unspecified atrial flutter; C54.1 Malignant neoplasm of endometrium; H90.3 Sensorineural hearing loss, bilateral; K59.00 Constipation, unspecified; K21.9 Gastro-esophageal reflux disease without esophagitis; R73.03 Prediabetes; E66.01 Morbid (severe) obesity due to excess calories; Z96.653 Presence of artificial knee joint, bilateral; Z79.810 Long term (current) use of selective estrogen receptor modulators (SERMs); Z79.899 Other long term (current) drug therapy
CPT/HCPCS: 00123; 36415; 80048; 80053; 85027; 93005; 93306; 96365; 96368; 96375; 99291; J1650; 83735; 83880; 84484; 85025; 85610; 93010; 99223; 99239; J3475; J3480

== ENCOUNTER 2025-01-02 10:41 | Outpatient (CLI) | payer MEDICARE, SELFPAY ==
--- NOTE | 2025-01-02 10:30 | RT.EKG_ITS ---
APPROVED REPORT Exam: Resting ECG Reason for Exam: Afib Patient Location: O HR:62 bpm ECG Measurements Heart Rate 62 AXIS IL 146 P 51 QRSd 97 QRS 37 QT 428 T 21 QTc 435 Conclusion Sinus rhythm...normal P axis, V-rate 50- 99 Atrial premature complex...SV complex w/ short R-R interval Otherwise normal ECG
== END 2025-01-02 10:42 | disposition home or self-care (01) ==
LOC: DI.KIM 10:41
PROVIDERS: PCP Nurse Practitioner; Visit Provider Family Medicine
DX: I49.9 Cardiac arrhythmia, unspecified (principal); I48.92 Unspecified atrial flutter
CPT/HCPCS: 93010

== ENCOUNTER 2025-01-05 04:43 | Outpatient (CLI) | payer MEDICARE, SELFPAY ==
[2025-01-05 10:33] LABS: NT-proBNP 132 pg/mL (<300)
[2025-01-06 18:55] LABS: Calculated LDL 83 mg/dL (<100); Cholesterol 151 mg/dL (<200); HDL Cholesterol 47 mg/dL (>or=50); Triglyceride 107 mg/dL (<150)
== END 2025-01-05 04:44 | disposition home or self-care (01) ==
LOC: LBO 04:44
PROVIDERS: PCP Nurse Practitioner; Referring Provider Family Medicine; Visit Provider Family Medicine
DX: E03.9 Hypothyroidism, unspecified (principal); I50.20 Unspecified systolic (congestive) heart failure; E87.70 Fluid overload, unspecified; E78.5 Hyperlipidemia, unspecified; Z13.9 Encounter for screening, unspecified
CPT/HCPCS: 36415; 80061; 83880; 84443

== ENCOUNTER 2025-07-10 07:27 | Inpatient (IN) | payer MEDICARE, SELFPAY ==
[2025-07-10] VITALS (131 sets, daily range): BP systolic 82–171; BP diastolic 47–104; PULSE 59–172; RESP 15–31; TEMP 36.6–37.7; O2SAT 87–100
--- NOTE | 2025-07-10 07:15 | RT.EKG_ITS ---
APPROVED REPORT Exam: Resting ECG Reason for Exam: SOB Patient Location: E HR:152 bpm ECG Measurements Heart Rate 152 AXIS ME [id number] P [id number] QRSd 82 QRS 35 QT 301 T 234 QTc 485 Conclusion Atrial fibrillation with rapid V-rate...A-rate 381 Ventricular premature complex...V complex w/ short R-R interval Repolarization abnormality, prob rate related...ST dep, T neg, tachycardia
--- NOTE | 2025-07-10 08:17 | W.ED.GENAD ---
Discharge Plan Disposition Patient Disposition: Admit to [facility] Condition: Serious Discharge Details Clinical Impression: Atrial fibrillation with rapid ventricular response Primary Care Provider: Ann Choi ED Provider: Pradeep Marmolejo Home Meds and New Rx's Prescriptions: No Action famotidine [Pepcid] 20 mg tablet 20 mg PO DAILY Qty: 90 3RF fluticasone propionate 50 mcg/actuation spray,suspension 2 spray intranasal DAILY Qty: 16 6RF Rx Instructions: administer into each nostril docusate sodium [Stool Softener] 100 mg tablet 100 mg PO BID Qty: 100 6RF megestrol 40 mg tablet 80 mg PO BID Rx Instructions: x3 weeks then restarting tamoxifen tamoxifen 20 mg tablet 20 mg PO .COMPLEX Patient Comments: TAKE ONE TABLET BY MOUTH TWICE A DAY Rx Instructions: 20 mg orally after completing Megace; To start after completing 3 weeks of Megace cholecalciferol (vitamin D3) [Vitamin D3] 25 mcg (1,000 unit) tablet 2,000 unit PO DAILY Rx Instructions: 10/21/24- Per [facility] nurse, Maria Martin pt reports she takes 2000 units daily. levothyroxine 75 mcg tablet 75 mcg PO DAILY Qty: 90 3RF lovastatin 20 mg tablet 20 mg PO DAILY Qty: 90 3RF hydrochlorothiazide 25 mg tablet 25 mg PO DAILY Qty: 90 3RF diltiazem HCl 180 mg capsule,extended release 24hr See Rx Instructions .ROUTE .COMPLEX Qty: 90 0RF Dose Instruction: TAKE ONE CAPSULE BY MOUTH AT BEDTIME Rx Instructions: TAKE ONE CAPSULE BY MOUTH AT BEDTIME Eliquis 5 mg tablet See Rx Instructions .ROUTE .COMPLEX Qty: 90 0RF Dose Instruction: TAKE ONE TABLET BY MOUTH TWICE A DAY Rx Instructions: TAKE ONE TABLET BY MOUTH TWICE A DAY acetaminophen 500 mg tablet 1,000 mg PO Q8H PRN Qty: 90 0RF Rx Instructions: Take two tablets up to every 8 hours as needed for pain HPI General Mode of arrival: ambulatory. Date/Time Provider Initiated Documentation: 07/10/25 07:45. Limitations to Documentation: no limitations. Information obtained by: patient. HPI Narrative: HISTORY OF PRESENT ILLNESS 74-year-old female patient with a history of atrial fibrillation presenting with shortness of breath. She is accompanied by her . The patient reports experiencing dyspnea, which was most severe upon awakening at 5:45 AM today. She also describes episodes of near syncope, necessitating rest. Her symptoms are less pronounced when she is in a supine position and resting. She experienced mild dyspnea the last night, which she initially attributed to atrial fibrillation, a condition she has been diagnosed with but does not frequently experience. She has not experienced any recent changes in her medication regimen. She abstains from alcohol and tobacco but consumes coffee 2 to 3 times daily. She does not use any herbal supplements. She reports no worsening of chronic peripheral edema. She denies chest pain at this time but did have some discomfort in her chest earlier today described as a sensation of pressure that was short-lived. She has no history of myocardial infarction or coronary stent placement. She has not yet taken her prescribed dose of diltiazem today, as it is typically administered in the evening. She is currently on a regimen of Eliquis, administered twice daily, and diltiazem. She has no history of thromboembolic events. Related Data Home Medications Medication Instructions Recorded Confirmed fluticasone propionate 50 2 spray intranasal DAILY #16 grams 03/14/22 07/10/25 mcg/actuation nasal spray,suspension docusate sodium 100 mg tablet 100 mg PO BID #100 tab-caps 12/25/23 07/10/25 (Stool Softener) acetaminophen 500 mg tablet 1,000 mg (2 x 500 mg) PO Q8H PRN 08/18/24 07/10/25 pain #90 tabs cholecalciferol (vitamin D3) 25 2,000 unit PO DAILY 10/21/24 07/10/25 mcg (1,000 unit) tablet (Vitamin D3) levothyroxine 75 mcg tablet 75 mcg PO DAILY #90 tab-caps 11/25/24 07/10/25 megestrol 40 mg tablet 80 mg PO BID 12/23/24 07/10/25 tamoxifen 20 mg tablet 20 mg PO .COMPLEX 12/23/24 07/10/25 famotidine 20 mg tablet (Pepcid) 20 mg PO DAILY #90 tabs 01/02/25 07/10/25 lovastatin 20 mg tablet 20 mg PO DAILY #90 tabs 04/01/25 07/10/25 hydrochlorothiazide 25 mg tablet 25 mg PO DAILY #90 tab-caps 05/20/25 07/10/25 apixaban 5 mg tablet (Eliquis) See Rx Instructions .Route 06/24/25 07/10/25 .COMPLEX #90 tabs diltiazem HCl 180 mg See Rx Instructions .Route 06/24/25 07/10/25 capsule,extended release 24 hr .COMPLEX #90 caps Previous Rx's Medication Instructions Recorded fluticasone propionate 50 2 spray intranasal DAILY #16 grams 03/14/22 mcg/actuation nasal spray,suspension docusate sodium 100 mg tablet 100 mg PO BID #100 tab-caps 12/25/23 (Stool Softener) acetaminophen 500 mg tablet 1,000 mg (2 x 500 mg) PO Q8H PRN 08/18/24 pain #90 tabs levothyroxine 75 mcg tablet 75 mcg PO DAILY #90 tab-caps 11/25/24 famotidine 20 mg tablet (Pepcid) 20 mg PO DAILY #90 tabs 01/02/25 lovastatin 20 mg tablet 20 mg PO DAILY #90 tabs 04/01/25 hydrochlorothiazide 25 mg tablet 25 mg PO DAILY #90 tab-caps 05/20/25 apixaban 5 mg tablet (Eliquis) See Rx Instructions .Route 06/24/25 .COMPLEX #90 tabs diltiazem HCl 180 mg See Rx Instructions .Route 06/24/25 capsule,extended release 24 hr .COMPLEX #90 caps Allergies Allergy/AdvReac Type Severity Reaction Status Date / Time penicillin V Allergy Intermediate Rash, fever Verified 07/10/25 07:46 gluten AdvReac Unknown Unknown Verified 07/10/25 07:46 hydralazine AdvReac Unknown Headache/ Verified 07/10/25 07:46 cough General Stated Complaint: Arrhythmia WARREN: 3 Exam Const General: cooperative and no acute distress Nutritional Appearance: obese Orientation: alert and awake [facility] Mouth: moist mucous membranes Eyes Conjunctivae: normal conjunctivae Sclera: normal sclerae EOM: EOM intact bilaterally Neck Neck: trachea midline and supple Resp Auscultation: clear to auscultation bilaterally, no rales, no rhonchi and no wheezes Cardio Rate: tachycardic Rhythm: abnormal rhythm irregularly irregular Heart Sounds: no murmurs GI Palpation: soft, not firm, no guarding, no masses, not rigid and nontender Skin General skin exam: no rashes or lesions noted Neuro General: patient alert, patient awake, patient oriented x3 and tone normal Extrem General: no calf tenderness and edema Laterality: bilateral (Mild) Psych Appearance: grossly normal Mental Status: mental status grossly normal Course Vital Signs Vital signs: Vital Signs Temperature 36.6 C 07/10/25 07:35 Pulse 172 H 07/10/25 07:35 Respiratory Rate 25 H 07/10/25 07:35 Pulse Oximetry 99 07/10/25 07:35 Temperature 36.6 C 07/10/25 07:35 Temperature Source Oral 07/10/25 07:35 Pulse 94 H 07/10/25 07:42 Pulse 153 H 07/10/25 07:42 Respiratory Rate 15 07/10/25 07:42 Blood Pressure 131/58 L 07/10/25 07:42 Blood Pressure Mean 78 07/10/25 07:42 Pulse Oximetry 99 07/10/25 07:42 Oxygen Delivery Method Room Air 07/10/25 07:35 Oxygen Flow Rate 0 07/10/25 07:35 Medical Decision Making ASSESSMENT AND PLAN Initial Assessment: 74-year-old female with history of A-fib on Eliquis and diltiazem, here with dyspnea, worse with exertion since this morning. Also episode of chest discomfort today. Symptoms improved with rest. Patient is tachycardic, irregular rhythm. 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 Patient mildly hypertensive. Saturating well, tachypneic no respiratory distress. Differential diagnosis: Atrial fibrillation with RVR, ACS, CHF, acute life-threatening pulmonary embolism. ED Course: - Blood work ordered, including a D-dimer test - Intravenous dose of diltiazem 15 mg administered, patient had some improvement in heart rate - Diltiazem infusion started. Patient's blood pressure did decrease to 92/70. Holding titration. - Labs reviewed. Age-adjusted D-dimer negative. Troponin negative. BNP is elevated. Chest x-ray pending. - Patient does note loose stool today. I will send C. difficile testing. - Chest x-ray reviewed and interpreted by radiology: Subtle infiltrate in the left lower lobe. No obvious pleural effusions. Patient has no leukocytosis. She is afebrile. She does not mild cough this AM and recent sinus congestion. Will check fluvid. Clinical Impression: - Atrial fibrillation with RVR - Pulmonary infiltrate Disposition: - Admission: May need to be admitted for further monitoring and treatment depending on response to medication This document was written with the assistance of GEOFFREY Astorga. The patient consented to its use. Lab Data Lab results reviewed: Yes I reviewed the patient's lab results. Labs: Laboratory Tests Range/Units 07/10/25 08:12 WBC (4.4-10.8) 10^3/uL 9.05 RBC (3.93-5.22) 10^6/uL 4.54 Hgb (11.2-15.7) g/dL 13.2 Hct (36.0-46.0) % 39.6 MCV (80-95) fL 87 MCH (27.0-33.0) pg 29.1 MCHC (32.0-36.0) % 33.3 RDW (11.7-14.6) % 14.2 Plt Count (130-400) 10^3/uL 247 MPV (8.0-11.0) fL 10.8 Immature Gran % % 0.3 Neutrophils % % 70.1 Lymphocytes % % 17.2 Monocytes % % 8.6 Eosinophils % % 3.2 Basophils % % 0.6 Nucleated RBC % (0.0-0.3) % 0.0 Absolute Neutrophils (1.2-6.7) 10^3/uL 6.34 Absolute Lymphocytes (1.2-3.4) 10^3/uL 1.56 Absolute Monocytes (0.1-0.8) 10^3/uL 0.78 Absolute Eosinophils (0.0-0.7) 10^3/uL 0.29 Absolute Basophils (0.0-0.2) 10^3/uL 0.05 D-Dimer (<500) ng/mlFEU 518 H Sodium (136-145) mmol/L 142 Potassium (3.5-5.1) mmol/L 3.6 Chloride (98-107) mmol/L 107 Carbon Dioxide (20.0-31.0) mmol/L 24.8 Anion Gap (3-11) mmol/L 10.2 BUN (9-23) mg/dL 20 Creatinine (0.55-1.02) mg/dL 0.8 Est GFR (CKD-EPI 2020) (mL/min/1.73m2) 73.15 Glucose (74-106) mg/dL 123 H Calcium (8.3-10.6) mg/dL 9.3 Magnesium (1.6-2.6) mg/dL 1.6 Total Bilirubin (0.2-1.2) mg/dL 0.50 AST (<34) U/L 22 ALT (10-49) U/L 25 Alkaline Phosphatase (46-116) U/L 58 Troponin I (<35) ng/L 10 NT-Pro-B Natriuret Pep (<300) pg/mL 1231 H Total Protein (5.7-8.2) g/dL 7.0 Albumin (3.4-5.0) g/dL 4.3 Quality:SDOH Health Related Social Needs: Health related social needs details patient states no housing difficulties Critical Care Time Critical Care Time Critical Care Time: Yes Total Critical Care Time: 45 Attestation: Due to a high probability of clinically significant, life threatening deterioration, the patient required my highest level of preparedness to intervene emergently and I personally spent this critical care time directly and personally managing the patient. This critical care time included obtaining a history; examining the patient; pulse oximetry; ordering and review of studies; arranging urgent treatment with development of a management plan; evaluation of patient's response to treatment; frequent reassessment; and, discussions with other providers. This critical care time was performed to assess and manage the high probability of imminent, life-threatening deterioration that could result in multi-organ failure. It was exclusive of separately billable procedures and treating other patients and teaching time. Please see MDM section and the rest of the note for further information on patient assessment and treatment. PFSH All Active Problems (Updated 07/10/25 @ 10:04 by Pradeep Marmolejo MD) Atrial fibrillation with rapid ventricular response (Acute) Candidal intertrigo (Acute) PAF (paroxysmal atrial fibrillation) (Acute) 03/24/25 Cardiology - ZIO Patch planned Fluid overload (Acute) Atrial flutter (Acute) Tachycardia (Acute) Irregular heart rhythm (Acute) Environmental allergies (Acute) Dust, mold, pollen Recurrent carcinoma of endometrium (Acute ~11/2024) Grade 3 determined with bx. 12/08/24 met with CORNER BEAD OPERATOR - options discussed for treatment 01/05/25 [facility] Sensorineural hearing loss, bilateral (Acute) 03/12/24 Otolayryngology Endometrial cancer determined by uterine biopsy (Acute ~12/2022) 01/25/23 master plumber, Dr. Armendariz - recurrence at vaginal apex. 02/20/23 F/u Dr Armendariz, will start #2 cycle in 3w will be treated with Chemo 02/16/23 PET Scan scheduled Constipation (Acute 04/08/18) Essential hypertension (Acute 06/07/17) Gastroesophageal reflux disease without esophagitis (Acute 04/08/18) Hypothyroidism (Acute 06/07/17) Obesity (Acute 10/08/17) Pre-diabetes (Acute 06/07/17) Primary osteoarthritis of both knees (Acute 06/07/17) Pure hypercholesterolemia (Acute 06/07/17) Headache (Acute 06/07/17) Gout (Acute 06/07/17) Flat feet, bilateral (Acute) Post-menopausal bleeding (Acute) Cervical stenosis (uterine cervix) (Acute) S/P dilatation and curettage (Acute) 07/09/19 Dr Tijerina, [facility] Med [facility].- Grade 3 Endometrial Adenocarcinoma Endometrial carcinoma (Acute) 07/09/2019 [facility] [place] 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 11/11/19 Dr Nuñez [facility] [place], pt undergoing Radiation Therapy. 11/23/22 F/u [facility] - no evidence for regional sugey or distant sites of metastasis 12/2022. Exam under anesthesia with vaginal biopsy consistent with FIGO grade 3 endometrial adenocarcinoma, recurrence. Referral to [facility] PEST CONTROL APPLICATOR oncology placed Medicare annual wellness visit, subsequent (Acute) Osteoarthritis of right knee (Acute) Hypothyroidism (Chronic) Hypertrophic toenail (Acute) Snoring (Acute) Rash (Acute) Itching (Acute) with excoriations.. Mite infestation (Acute) Since March? Possible scabies? Landlord evaluating, but no other apts complaining.. Morbid obesity with body mass index of 45.0-49.9 in adult (Acute) Screening for colon cancer (Acute) Vaginal bleeding (Acute) Vaginal lesion (Acute) 12/08/24 saw CORNER BEAD OPERATOR - recurrence of endometrial ca. Medical History Atrial fibrillation with RVR Difficult intravenous access Osteoarthritis High cholesterol Hyperthyroidism pt. denies this-states HYPOthroidism Vertigo HTN (hypertension) GERD (gastroesophageal reflux disease) Hiatal hernia Surgical History History of total left knee replacement (08/18/24) History of total right knee replacement (12/21/20) Status post hysterectomy with oophorectomy (08/14/19) 08/14/19- [facility] [place] robotic hysterectomy/BSO with sentinel lymph node biopsies. History of dilatation and curettage History of colonoscopy Ligation of fallopian tube Cholecystectomy Appendectomy Family History Mother Arteriosclerotic heart disease (ASHD) Father , Heart Attack at age 83. Arteriosclerotic heart disease (ASHD) Sister Essential hypertension Sister Sarcoidosis Brother Substance abuse Alcoholism Diabetes Brother , Logging Accident Diabetes Brother Neoplasm Liver Social History Smoking/Tobacco Use Status: Never Smoking risk assessment performed?: Yes Alcohol Intake: current Alcohol Intake frequency: holidays/special occasions only Alcohol type: wine and other Drug use: Never Substance use type: does not use Adopted: No Household members: spouse Housing: apartment Number of Children: 5 Communication Needs: None Pets and animals: No Current gender identity: female What is your relationship status?: Panel score (0-1 are the most socially isolated patients): 1 What type of physical activity do you participate in: walking Duration: 15-30 minutes/day Frequency: 1-2 times per week Seatbelt use: always Working smoke detector in home: Yes Fire extinguisher in home: Yes Carbon monox detector in home: Yes Firearms in home: Yes (pellet gun) Firearms unloaded and locked: Yes Do you feel safe at home: Yes Do you feel safe in your relationship?: Yes
[2025-07-10 08:22] LABS: Abs Immature Grans 0.03 10^3/uL (0.0-0.06); HCT 39.6 % (36.0-46.0); HGB 13.2 g/dL (11.2-15.7); Immature Grans % 0.3 %; MCH 29.1 pg (27.0-33.0); MCHC 33.3 % (32.0-36.0); MCV 87 fL (80-95); MPV 10.8 fL (8.0-11.0); Platelet Count 247 10^3/uL (130-400); RBC 4.54 10^6/uL (3.93-5.22); RDW 14.2 % (11.7-14.6); RDW-SD 45.3 fL; WBC 9.05 10^3/uL (4.4-10.8)
[2025-07-10] MEDS: dilTIAZem 25 MG/5 ML VIAL 15 MG IVP (08:28)
[2025-07-10 08:37] LABS: Magnesium 1.6 mg/dL (1.6-2.6); Troponin I 10 ng/L (<35)
[2025-07-10 08:39] LABS: ALT 25 U/L (10-49); AST 22 U/L (<34); Albumin 4.3 g/dL (3.4-5.0); Alkaline Phosphatase 58 U/L (46-116); Anion Gap 10.2 mmol/L (3-11); BUN 20 mg/dL (9-23); Bilirubin, Total 0.50 mg/dL (0.2-1.2); CO2 24.8 mmol/L (20.0-31.0); Calcium 9.3 mg/dL (8.3-10.6); Chloride 107 mmol/L (98-107); Glucose 123 mg/dL (74-106); Potassium 3.6 mmol/L (3.5-5.1); Sodium 142 mmol/L (136-145); Total Protein 7.0 g/dL (5.7-8.2)
[2025-07-10 08:49] LABS: D-Dimer 518 ng/mlFEU (<500)
[2025-07-10] MEDS: dilTIAZem 125 MG in Normal Saline 100 ML IV (09:06)
[2025-07-10 10:12] LABS: Troponin I 8 ng/L (<35)
--- NOTE | 2025-07-10 10:21 | DI.RAD_ITS ---
Exam(s) XR CHEST 2V PA LATERAL EXAM: XR CHEST 2V PA LATERAL CLINICAL HISTORY: shortness of breath. TECHNIQUE: 2D digital imaging was performed. COMPARISON: CR XR CHEST 2V PA LATERAL from 10/24/[address] CHEST/ABD/PEL W from 01/03/2023 FINDINGS: 2 views: Heart size is upper normal. The mediastinum is not widened. Right lung is clear. There are mild increased markings in the lower left lung field. No pleural effusions. No pulmonary edema.. IMPRESSION: Subtle infiltrate in the left lower lobe. No obvious pleural effusions. DATA REPOSITORY: RADIATION DOSE DELIVERED:
--- NOTE | 2025-07-10 10:30 | DI.US_ITS ---
Exam(s) US LOWER EXTREMITY VENOUS LT EXAM: US LOWER EXTREMITY VENOUS LT CLINICAL HISTORY: pain TECHNIQUE: Grayscale, color, and doppler imaging of the deep venous system of the left lower extremity was performed. COMPARISON: US US ECHOCARDIOGRAM from 12/24/2024 FINDINGS: There is no evidence of intraluminal thrombus and there is normal compression and augmentation demonstrated within the common femoral vein, femoral vein, and popliteal vein. In the ipsilateral calf with limited visibility of posterior tibial veins mid and distally. These appear patent proximally. The ipsilateral saphenofemoral junction is patent. IMPRESSION: 1. No evidence of obvious DVT in the left lower extremity. Please note that the veins in the lower half of the calf were difficult to visualize. DATA REPOSITORY:
[2025-07-10 11:44] LABS: COVID-19 PCR Negative (Negative); RSV PCR Negative (Negative)
[2025-07-10 11:47] LABS: TSH (W/Ref FT4) 6.11 uIU/mL (0.55-4.78)
[2025-07-10 11:52] LABS: Troponin I 7 ng/L (<35)
--- NOTE | 2025-07-10 12:22 | W.PM.HP.N ---
Date of service: 07/10/25 Time of Service: 12:00 Assessment and Plan Assessment and plan (1) Atrial fibrillation with rapid ventricular response: Status: Acute Assessment and plan: Afib diagnosed November 2024, [facility] cardiology clinic visit February 2025. On apixaban and diltiazem. HR > 170 on arrival, some response to IV diltiazem pushes Improvement with diltiazem drip was short-lived, HRs sustained at 140+ Starting amiodarone drip, stop diltiazem gtt and hold home diltiazem PO Continue ICU care, cardiac monitoring (2) PAF (paroxysmal atrial fibrillation): Status: Acute Assessment and plan: As above (3) Recurrent carcinoma of endometrium: Status: Acute Assessment and plan: Currently in oncology care Hold megace, tamoxifen while in RVR (4) Morbid obesity with body mass index of 45.0-49.9 in adult: Status: Acute History of Present Illness History of Present Illness Chief Complaint: SOB Narrative: Brittni Valentin is a 74 year old woman presenting July 10 with shortness of breath. She has had multiple episodes of near-syncope over the 2-3 days prior to arrival. She had some shortness of breath the night before arrival. The morning of arrival, she woke up short of breath and was lightheaded. She has felt better lying down. She thinks this is from her chronic afib. When she has had a fast heart rate in the past, this is what it has felt like. 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 She has chronic BLE swelling which thinks is unchanged. Some loose stools the last 1-2 days. No abdominal pain, no N/V. No changes in medications. In the ED she was tachycardic 172 and tachypneic 25. EKG showed afib with atrial rate 381. CXR with subtle LLL infiltrate. US LLE without evidence of DVT. CBC unremarkable. Troponins negative x2. Ddimer elevated 518. Glucose mildly elevated 123. BNP markedly elevated 1231; in November 2024 it was 1756. She was given IV diltiazem push with some reduction in HR but the rate increased. She was started on a diltiazem drip. PMH: Per review of the chart, she was initially seen at [facility] cardiology in February 2025 for afib diagnosis in November 2024. Endometrial carcinoma 2019, may still be getting tamoxifen alternately with megace. Chronic hypomagnesemia. HTN. Hypothyroid. PFSH All Active Problems (Updated 07/10/25 @ 10:04 by Pradeep Marmolejo MD) Atrial fibrillation with rapid ventricular response (Acute) Candidal intertrigo (Acute) PAF (paroxysmal atrial fibrillation) (Acute) 03/24/25 Cardiology - ZIO Patch planned Fluid overload (Acute) Atrial flutter (Acute) Tachycardia (Acute) Irregular heart rhythm (Acute) Environmental allergies (Acute) Dust, mold, pollen Recurrent carcinoma of endometrium (Acute ~11/2024) Grade 3 determined with bx. 12/08/24 met with STOVE INSTALLER - options discussed for treatment 01/05/25 [facility] Rad/Onc Sensorineural hearing loss, bilateral (Acute) 03/12/24 Otolayryngology Endometrial cancer determined by uterine biopsy (Acute ~12/2022) 01/25/23 machine gunner, Dr. Armendariz - recurrence at vaginal apex. 02/20/23 F/u Dr Armendariz, will start #2 cycle in 3w will be treated with Chemo 02/16/23 PET Scan scheduled Constipation (Acute 04/08/18) Essential hypertension (Acute 06/07/17) Gastroesophageal reflux disease without esophagitis (Acute 04/08/18) Hypothyroidism (Acute 06/07/17) Obesity (Acute 10/08/17) Pre-diabetes (Acute 06/07/17) Primary osteoarthritis of both knees (Acute 06/07/17) Pure hypercholesterolemia (Acute 06/07/17) Headache (Acute 06/07/17) Gout (Acute 06/07/17) Flat feet, bilateral (Acute) Post-menopausal bleeding (Acute) Cervical stenosis (uterine cervix) (Acute) S/P dilatation and curettage (Acute) 07/09/19 Dr Tijerina, [facility] Med [facility].- Grade 3 Endometrial Adenocarcinoma Endometrial carcinoma (Acute) 07/09/2019 [facility]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 11/11/19 Dr Nuñez [facility], pt undergoing Radiation Therapy. 11/23/22 F/u [facility] - no evidence for regional sugey or distant sites of metastasis 12/2022. Exam under anesthesia with vaginal biopsy consistent with FIGO grade 3 endometrial adenocarcinoma, recurrence. Referral to [facility] EQUIPMENT TECHNICIAN oncology placed Medicare annual wellness visit, subsequent (Acute) Osteoarthritis of right knee (Acute) Hypothyroidism (Chronic) Hypertrophic toenail (Acute) Snoring (Acute) Rash (Acute) Itching (Acute) with excoriations.. Mite infestation (Acute) Since March? Possible scabies? Landlord evaluating, but no other apts complaining.. Morbid obesity with body mass index of 45.0-49.9 in adult (Acute) Screening for colon cancer (Acute) Vaginal bleeding (Acute) Vaginal lesion (Acute) 12/08/24 saw STOVE INSTALLER - recurrence of endometrial ca. Medical History Atrial fibrillation with RVR Difficult intravenous access Osteoarthritis High cholesterol Hyperthyroidism pt. denies this-states HYPOthroidism Vertigo HTN (hypertension) GERD (gastroesophageal reflux disease) Hiatal hernia Surgical History History of total left knee replacement (08/18/24) History of total right knee replacement (12/21/20) Status post hysterectomy with oophorectomy (08/14/19) [place] [facility] [place] with sentinel lymph node biopsies. History of dilatation and curettage History of colonoscopy Ligation of fallopian tube Cholecystectomy Appendectomy Family History Mother Arteriosclerotic heart disease (ASHD) Father , Heart Attack at age 83. Arteriosclerotic heart disease (ASHD) Sister Essential hypertension Sister Sarcoidosis Brother Substance abuse Alcoholism Diabetes Brother , Logging Accident Diabetes Brother Neoplasm Liver Social History Smoking/Tobacco Use Status: Never Smoking risk assessment performed?: Yes Alcohol Intake: current Alcohol Intake frequency: holidays/special occasions only Alcohol type: wine and other Drug use: Never Substance use type: does not use Adopted: No Household members: spouse Housing: apartment Number of Children: 5 Communication Needs: None Pets and animals: No Current gender identity: female What is your relationship status?: Panel score (0-1 are the most socially isolated patients): 1 What type of physical activity do you participate in: walking Duration: 15-30 minutes/day Frequency: 1-2 times per week Seatbelt use: always Working smoke detector in home: Yes Fire extinguisher in home: Yes Carbon monox detector in home: Yes Firearms in home: Yes (pellet gun) Firearms unloaded and locked: Yes Do you feel safe at home: Yes Do you feel safe in your relationship?: Yes Meds Allergies and Home Medications Allergies Allergy/AdvReac Type Severity Reaction Status Date / Time penicillin V Allergy Intermediate Rash, fever Verified 07/10/25 07:46 gluten AdvReac Unknown Unknown Verified 07/10/25 07:46 hydralazine AdvReac Unknown Headache/ Verified 07/10/25 07:46 cough Home Medications Medication Instructions Recorded Confirmed Type fluticasone propionate 50 2 spray intranasal DAILY #16 grams 03/14/22 07/10/25 Rx mcg/actuation nasal spray,suspension docusate sodium 100 mg tablet 100 mg PO BID #100 tab-caps 12/25/23 07/10/25 Rx (Stool Softener) acetaminophen 500 mg tablet 1,000 mg (2 x 500 mg) PO Q8H PRN 08/18/24 07/10/25 Rx pain #90 tabs cholecalciferol (vitamin D3) 25 2,000 unit PO DAILY 10/21/24 07/10/25 History mcg (1,000 unit) tablet (Vitamin D3) levothyroxine 75 mcg tablet 75 mcg PO DAILY #90 tab-caps 11/25/24 07/10/25 Rx megestrol 40 mg tablet 80 mg PO BID 12/23/24 07/10/25 History tamoxifen 20 mg tablet 20 mg PO .COMPLEX 12/23/24 07/10/25 History famotidine 20 mg tablet (Pepcid) 20 mg PO DAILY #90 tabs 01/02/25 07/10/25 Rx lovastatin 20 mg tablet 20 mg PO DAILY #90 tabs 04/01/25 07/10/25 Rx hydrochlorothiazide 25 mg tablet 25 mg PO DAILY #90 tab-caps 05/20/25 07/10/25 Rx apixaban 5 mg tablet (Eliquis) See Rx Instructions .Route 06/24/25 07/10/25 Rx .COMPLEX #90 tabs diltiazem HCl 180 mg See Rx Instructions .Route 06/24/25 07/10/25 Rx capsule,extended release 24 hr .COMPLEX #90 caps Exam Narrative Exam Narrative: General: This is a pleasant, obese woman in no distress HEENT: Normocephalic, atraumatic CV: tachycardia 140, irregularly irregular Resp: CTAB Abd: soft, NTND MSK: voluntary motion x4 Neuro: awake, alert, no focal deficits Results Labs 07/10/25 08:12 07/10/25 08:12 Labs: Laboratory Results - last 24 hr 07/10/25 07/10/25 07/10/25 08:12 09:50 11:02 WBC 9.05 RBC 4.54 Hgb 13.2 Hct 39.6 MCV 87 MCH 29.1 MCHC 33.3 RDW 14.2 Plt Count 247 MPV 10.8 Immature Gran % 0.3 Neutrophils % 70.1 Lymphocytes % 17.2 Monocytes % 8.6 Eosinophils % 3.2 Basophils % 0.6 Nucleated RBC % 0.0 Absolute Neutrophils 6.34 Absolute Lymphocytes 1.56 Absolute Monocytes 0.78 Absolute Eosinophils 0.29 Absolute Basophils 0.05 D-Dimer 518 H Sodium 142 Potassium 3.6 Chloride 107 Carbon Dioxide 24.8 Anion Gap 10.2 BUN 20 Creatinine 0.8 Est GFR (CKD-EPI 2020) 73.15 Glucose 123 H Calcium 9.3 Magnesium 1.6 Total Bilirubin 0.50 AST 22 ALT 25 Alkaline Phosphatase 58 Troponin I 10 8 NT-Pro-B Natriuret Pep 1231 H Total Protein 7.0 Albumin 4.3 TSH 6.11 H Free T4 1.51 COVID-19 Source Nasopharynx SARS-CoV-2 (PCR) Negative Influenza Type A (PCR) Negative Influenza Type B (PCR) Negative RSV (PCR) Negative 07/10/25 11:27 WBC RBC Hgb Hct MCV MCH MCHC RDW Plt Count MPV Immature Gran % Neutrophils % Lymphocytes % Monocytes % Eosinophils % Basophils % Nucleated RBC % Absolute Neutrophils Absolute Lymphocytes Absolute Monocytes Absolute Eosinophils Absolute Basophils D-Dimer Sodium Potassium Chloride Carbon Dioxide Anion Gap BUN Creatinine Est GFR (CKD-EPI 2020) Glucose Calcium Magnesium Total Bilirubin AST ALT Alkaline Phosphatase Troponin I 7 NT-Pro-B Natriuret Pep Total Protein Albumin TSH Free T4 COVID-19 Source SARS-CoV-2 (PCR) Influenza Type A (PCR) Influenza Type B (PCR) RSV (PCR) Last Vital Signs Temp 36.6 C 07/10/25 07:35 Pulse 138 H 07/10/25 12:10 Resp 27 H 07/10/25 12:11 BP 112/60 07/10/25 12:11 Pulse Ox 98 07/10/25 12:11 Time Spent Time spent with Patient: 40-54 minutes Time was spent: preparing to see the patient(eg.review tests), obtaining and/or reviewing separately otained hiistory, ordering medications,tests, procedures, referring, communicating with other health childcare worker, indepentently interpreting results, counseling the patient and care coordination
[2025-07-10] MEDS: dilTIAZem 125 MG in Normal Saline 100 ML 20 MG IV (18:01)
[2025-07-10] MEDS: AMIODARONE 150 MG in DEXTROSE 5%-WATER 100 ML 600 MG IV INF (19:40)
[2025-07-10] MEDS: Amiodarone in Dextrose 360 MG/200 ML BAG 33 MG IV INF (19:49)
[2025-07-10] MEDS: Normal Saline Flush 10 ML SYR IVP (20:58)
[2025-07-10] MEDS: Lovastatin 20 MG TAB PO (20:59)
[2025-07-10] MEDS: Apixaban 5 MG TAB PO (20:59)
--- NOTE | 2025-07-10 21:15 | RT.EKG_ITS ---
APPROVED REPORT Exam: Resting ECG Reason for Exam: Rhythm change to sinus Patient Location: I HR:68 bpm ECG Measurements Heart Rate 68 AXIS PA 136 P 52 QRSd 88 QRS 45 QT 412 T 36 QTc 439 Conclusion Sinus rhythm...normal P axis, V-rate 50- 99 Normal Electrocardiogram
[2025-07-11] VITALS (61 sets, daily range): BP systolic 100–135; BP diastolic 49–105; PULSE 63–85; RESP 12–30; TEMP 36.6–37; O2SAT 93–98
[2025-07-11] MEDS: Amiodarone in Dextrose 360 MG/200 ML BAG 16.7 MG IV INF (01:57)
[2025-07-11] MEDS: Levothyroxine 75 MCG TAB PO (06:21)
[2025-07-11 07:14] LABS: Magnesium 1.7 mg/dL (1.6-2.6)
[2025-07-11 07:19] LABS: ALT 21 U/L (10-49); AST 17 U/L (<34); Albumin 3.7 g/dL (3.4-5.0); Alkaline Phosphatase 49 U/L (46-116); Anion Gap 11.6 mmol/L (3-11); BUN 16 mg/dL (9-23); Bilirubin, Total 0.30 mg/dL (0.2-1.2); CO2 23.4 mmol/L (20.0-31.0); Calcium 9.1 mg/dL (8.3-10.6); Chloride 109 mmol/L (98-107); Glucose 118 mg/dL (74-106); Potassium 3.5 mmol/L (3.5-5.1); Sodium 144 mmol/L (136-145); Total Protein 6.0 g/dL (5.7-8.2)
[2025-07-11] MEDS: Famotidine 20 MG TAB PO (07:57)
[2025-07-11] MEDS: Normal Saline Flush 10 ML SYR IVP (07:58)
[2025-07-11] MEDS: Cholecalciferol (Vitamin D3) 1,000 UNIT TAB 2000 UNITS PO (07:58)
[2025-07-11] MEDS: Apixaban 5 MG TAB PO (07:58)
[2025-07-11] MEDS: hydroCHLOROthiazide 25 MG TAB PO (07:58)
--- NOTE | 2025-07-11 09:18 | INITIAL_ITS ---
Date of service: 07/11/25 Time of Service: 09:18 Care Management Initial Assmt Initial Assessment Reason for Hospitalization: Afib RVR Functional Status/Living Situation Patient Presentation: Brittni was lying in bed when CM met with her. She was pleasant and engaged well in conversation. She reported that per MD, she will likely discharge later today, as her heart rate is now controlled. She stated that she is happy with this plan, and is looking forward to going home. She reported that she lives in [place] with her . She had five children, although one in 2019. Her other four children do not live locally, and she stated that they are planning a get together in the spring. She stated that she is independent at baseline. CM will continue to follow. Town of Residence: [place] Resides with: Spouse ([place]) Significant Other/Family: Out of area Natural Supports: , [place] Four children who live in [place], [place] and [place] Employment Status: Retired Instrumental Activities of Daily Living (ADLs): Independent Medications Medication Management: No Issues/Barriers identified Physical Functioning/Mobility Assistive Device: FWW, cane, grab bars in bathroom Advance Directives Advance Directives: Do you have an Advance Directive: Y , 10:26 AD On File at [facility]: Y 01/02/25, 10:26 Date Asked 07/10/25 07/10/25, 09:19 AD Date Reviewed 07/10/25 07/10/25, 08:04 COLST On File at [facility] COLST Date Scanned Code Status Resuscitation Status Full Code Insurance Coverage/Financial Issues Insurance: [facility] Care Team Visit Care Team Role Provider Type Simón Rivera MD [facility] STAFF PHYSICIAN Ann Choi NP Primary Care Provider NURSE PRACTITIONER Pradeep Marmolejo MD Emergency Provider [facility] STAFF PHYSICIAN Haile Mg MD Admit Provider [facility] STAFF PHYSICIAN Attending Provider Discharge Potential Discharge Needs: PCP F/U Appt Anticipated Barriers to Discharge: None Identified Patient/Family Education Needs: Review discharge instructions, discuss Ask Me Three Transportation: Private vehicle Plan: Anticipate Brittni will return home once medically cleared. Her will drive her home via private vehicle when ready. She will follow up with her PCP and discharge plan of care. CM will continue to follow. Social Determinants of Health Screening Social Determinants of health last assessed in clinic: 07/11/25 Will the Patient Participate in the Screening?: Yes Do you worry about having a steady place to live?: no Problems where you live: no known problems In the past 12 months, have you had to go without electric, gas, oil or water in your home?: no 1. Within the past 12 months, we worried whether our food would run out before we got money to buy more.: Don't know/refused 2. Within the past 12 months, the food we bought just didn't last and we didn't have money to get more.: Don't know/refused Has lack of transportation kept you from medical appointments or from doing things needed for daily living?: no Has anyone in your life made you feel unsafe or unsupported?: no How hard is it for you to pay for the very basics like food, housing, medical care, and heating? Would you say it is:: Not hard at all Do you want help finding or keeping work or a job?: I do not need or want help If for any reason you need help with day-to-day activities such as bathing, pre paring meals, shopping, managing finances, etc., do you get the help you need?: I don’t need any help How often do you feel lonely or isolated from those around you?: Never Do you speak a language other than Khmer at home?: No Does the patient want assistance with any of the above?: Yes Comments: Gambian is pt's secondary language. PFSH All Active Problems (Updated 07/10/25 @ 10:04 by Pradeep Marmolejo MD) Atrial fibrillation with rapid ventricular response (Acute) Candidal intertrigo (Acute) PAF (paroxysmal atrial fibrillation) (Acute) 03/24/25 Cardiology - ZIO Patch planned Fluid overload (Acute) Atrial flutter (Acute) Tachycardia (Acute) Irregular heart rhythm (Acute) Environmental allergies (Acute) Dust, mold, pollen Recurrent carcinoma of endometrium (Acute ~11/2024) Grade 3 determined with bx. 12/08/24 met with HOME ADMINISTRATOR - options discussed for treatment 01/05/25 [facility] [place] Rad/Onc Sensorineural hearing loss, bilateral (Acute) 03/12/24 Otolayryngology Endometrial cancer determined by uterine biopsy (Acute ~12/2022) 01/25/23 improvement director, Dr. Armendariz - recurrence at vaginal apex. 02/20/23 F/u Dr Armendariz, will start #2 cycle in 3w will be treated with Chemo 02/16/23 PET Scan scheduled Constipation (Acute 04/08/18) Essential hypertension (Acute 06/07/17) Gastroesophageal reflux disease without esophagitis (Acute 04/08/18) Hypothyroidism (Acute 06/07/17) Obesity (Acute 10/08/17) Pre-diabetes (Acute 06/07/17) Primary osteoarthritis of both knees (Acute 06/07/17) Pure hypercholesterolemia (Acute 06/07/17) Headache (Acute 06/07/17) Gout (Acute 06/07/17) Flat feet, bilateral (Acute) Post-menopausal bleeding (Acute) Cervical stenosis (uterine cervix) (Acute) S/P dilatation and curettage (Acute) 07/09/19 Dr Tijerina, [facility] Med Ctr.- Grade 3 Endometrial Adenocarcinoma Endometrial carcinoma (Acute) 07/09/2019 [facility] [place] [place] 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 11/11/19 [place] [facility] [place]. 11/23/22 F/u J Rad Onc - no evidence for regional sugey or distant sites of metastasis 12/2022. Exam under anesthesia with vaginal biopsy consistent with FIGO grade 3 endometrial adenocarcinoma, recurrence. Referral to [facility] SENIOR TECH MANUFACTURING ENGINEERING oncology placed Medicare annual wellness visit, subsequent (Acute) Osteoarthritis of right knee (Acute) Hypothyroidism (Chronic) Hypertrophic toenail (Acute) Snoring (Acute) Rash (Acute) Itching (Acute) with excoriations.. Mite infestation (Acute) Since March? Possible scabies? Landlord evaluating, but no other apts complaining.. Morbid obesity with body mass index of 45.0-49.9 in adult (Acute) Screening for colon cancer (Acute) Vaginal bleeding (Acute) Vaginal lesion (Acute) 12/08/24 saw HOME ADMINISTRATOR - recurrence of endometrial ca. Medical History Atrial fibrillation with RVR Difficult intravenous access Osteoarthritis High cholesterol Hyperthyroidism pt. denies this-states HYPOthroidism Vertigo HTN (hypertension) GERD (gastroesophageal reflux disease) Hiatal hernia Surgical History History of total left knee replacement (08/18/24) History of total right knee replacement (12/21/20) Status post hysterectomy with oophorectomy (08/14/19) 08/14/19- [facility] [place] robotic hysterectomy/BSO with sentinel lymph node biopsies. History of dilatation and curettage History of colonoscopy Ligation of fallopian tube Cholecystectomy Appendectomy Family History Mother Arteriosclerotic heart disease (ASHD) Father , Heart Attack at age 83. Arteriosclerotic heart disease (ASHD) Sister Essential hypertension Sister Sarcoidosis Brother Substance abuse Alcoholism Diabetes Brother , Logging Accident Diabetes Brother Neoplasm Liver Social History Smoking/Tobacco Use Status: Never Smoking risk assessment performed?: Yes Alcohol Intake: current Alcohol Intake frequency: holidays/special occasions only Alcohol type: wine and other Drug use: Never Substance use type: does not use Adopted: No Household members: spouse Housing: apartment Number of Children: 5 Communication Needs: None Pets and animals: No Current gender identity: female What is your relationship status?: Panel score (0-1 are the most socially isolated patients): 1 What type of physical activity do you participate in: walking Duration: 15-30 minutes/day Frequency: 1-2 times per week Seatbelt use: always Working smoke detector in home: Yes Fire extinguisher in home: Yes Carbon monox detector in home: Yes Firearms in home: Yes (pellet gun) Firearms unloaded and locked: Yes Do you feel safe at home: Yes Do you feel safe in your relationship?: Yes
[2025-07-11] MEDS: TAMOXIFEN 20 MG 1 EACH PO (10:00)
--- NOTE | 2025-07-11 15:29 | DSE_ITS ---
Date of service: 07/11/25 Time of Service: 15:30 DS: Diagnosis Discharge Diagnosis (1) Atrial fibrillation with rapid ventricular response: Status: Acute (2) PAF (paroxysmal atrial fibrillation): Status: Acute (3) Recurrent carcinoma of endometrium: Status: Acute (4) Morbid obesity with body mass index of 45.0-49.9 in adult: Status: Acute Discharge Plan Disposition Patient Disposition: Home Condition: Stable Discharge Details Reason For Visit: afib RVR Admit Date/Time: 07/10/25 12:17 Admit Provider: Haile Mg Attending Provider: Haile Mg Primary Care Provider: Ann Choi Hospital Course Hospital Course: 74 year old woman with recurrent endometrial carcinoma, BMI >40, and November 2024 diagnosis of PAfib on apixaban who presented July 10 with shortness of breath and presyncope. She was found to be back in atrial fibrillation with a rate in the 170s. Troponins were negative, but BNaP was 1231. She was initially started on a diltiazem drip, but then given a loading dose of amiodarone. She converted to normal sinus rhythem after a few hours. She finished the loading dose overnight and did not have a recurrence. She felt better and was sent home on 200mg daily oral amiodarone with a plan to follow up with PCP in the next week and cardiology in the next month to either continue amiodarone or make alternative plans. She had some left leg swelling but DVT study was negative for DVT. Her TSH was 6.11, up from 1.70, Free T4 was well in the normal range of 1.51. Given amiodarones common inpact on thyroid function, this should be repeated in a month or so. Recommendations for Follow Up Recommended tests to be ordered by follow up provider: routine monitoring for amiodarone including TSH and creatinine Home Meds and New Rx's Prescriptions: New amiodarone 200 mg tablet 200 mg PO DAILY Qty: 28 0RF Continued famotidine [Pepcid] 20 mg tablet 20 mg PO DAILY Qty: 90 3RF fluticasone propionate 50 mcg/actuation spray,suspension 2 spray intranasal DAILY Qty: 16 6RF Rx Instructions: administer into each nostril docusate sodium [Stool Softener] 100 mg tablet 100 mg PO BID Qty: 100 6RF megestrol 40 mg tablet 80 mg PO BID Rx Instructions: x3 weeks then restarting tamoxifen tamoxifen 20 mg tablet 20 mg PO .COMPLEX Patient Comments: TAKE ONE TABLET BY MOUTH TWICE A DAY Rx Instructions: 20 mg orally after completing Megace; To start after completing 3 weeks of Megace cholecalciferol (vitamin D3) [Vitamin D3] 25 mcg (1,000 unit) tablet 2,000 unit PO DAILY Rx Instructions: 10/21/24- Per [facility] nurse, Maria Martin pt reports she takes 2000 units daily. levothyroxine 75 mcg tablet 75 mcg PO DAILY Qty: 90 3RF lovastatin 20 mg tablet 20 mg PO DAILY Qty: 90 3RF hydrochlorothiazide 25 mg tablet 25 mg PO DAILY Qty: 90 3RF diltiazem HCl 180 mg capsule,extended release 24hr See Rx Instructions .ROUTE .COMPLEX Qty: 90 0RF Dose Instruction: TAKE ONE CAPSULE BY MOUTH AT BEDTIME Rx Instructions: TAKE ONE CAPSULE BY MOUTH AT BEDTIME Eliquis 5 mg tablet See Rx Instructions .ROUTE .COMPLEX Qty: 90 0RF Dose Instruction: TAKE ONE TABLET BY MOUTH TWICE A DAY Rx Instructions: TAKE ONE TABLET BY MOUTH TWICE A DAY acetaminophen 500 mg tablet 1,000 mg PO Q8H PRN Qty: 90 0RF Rx Instructions: Take two tablets up to every 8 hours as needed for pain Discharge Instructions Instructions: Amiodarone Additional Instructions: Your heart was back in atrial fibrillation and was going to fast. It went back to normal rhythm with the use of a new medication amiodarone. You should continue this daily. Your milk pasteurizer or PCP may have you cut the dose back later or change to a different medication or recommend a procedure to treat the atrial fibrillation in the future. Treating possible sleep apnea, loosing weight, and avoiding alcohol will help prevent episodes of atrial fibrillation as well. Stand Alone Forms: Portal Information Activity:: Activity as Tolerated Equipment/Supplies:: No Equipment Needed Diet:: Normal Diet Discharge Orders Discharge Orders: Discharge Order (Routine); Ordered 07/11/25 Ordered By: Simón Rivera DS: Summary Time Spent with Patient providing and/or coordinating discharge services: Greater than 30 minutes Status at Discharge Functional status at discharge: independent ambulation Overall status at discharge: patient is back to baseline Mental Status: mental status grossly normal Speech and Movement: speech and movement normal Mood: congruent mood Affect: normal affect Quality:SDOH Health Related Social Needs: Health related social needs details patient states no housing difficulties Exam Narrative Exam Narrative: General: This is a pleasant, obese woman in no distress CV: RRR 70s Resp: CTAB Abd: soft, NTND Ext: no c/c/e Neuro: awake, alert, no focal deficits Psych Mental Status: mental status grossly normal Speech and Movement: speech and movement normal Mood: congruent mood Affect: normal affect DS: Data Vitals/I&O Vitals and I&O: Vital Signs Temperature 36.6 C 07/11/25 07:00 Temperature Source Temporal Artery Scan 07/11/25 00:00 Pulse 74 07/11/25 15:18 Pulse 75 07/11/25 15:18 Respiratory Rate 18 07/11/25 15:18 Respiratory Effort Normal, Non-Labored 07/10/25 15:17 Respiratory Depth Normal 07/10/25 15:17 Respiratory Pattern Normal 07/10/25 15:17 Blood Pressure 133/79 07/11/25 15:18 Blood Pressure Mean 95 07/11/25 15:18 Blood Pressure Position Supine 07/10/25 15:17 Pulse Oximetry 97 07/11/25 14:00 Oxygen Delivery Method Room Air 07/10/25 15:17 Oxygen Flow Rate 0 07/10/25 15:17 Pain Level 0 07/10/25 15:17 Intake & Output 07/10/25 07/11/25 07/11/25 23:59 11:59 23:59 Intake Total 485.083 / 491.500 677.735 / 1060.000 382.265 / 1060.000 Output Total 550 / 550 350 / 600 250 / 600 Balance -64.917 / -58.500 327.735 / 460.000 132.265 / 460.000 Weight 98.1 kg 98.6 kg Intake: IV 245.083 / 251.500 317.735 / 400.000 82.265 / 400.000 Oral 240 / 240 360 / 660 300 / 660 Output: Urine 550 / 550 350 / 600 250 / 600 Other: Urine Color Yellow Straw Yellow Urine Appearance Clear Clear Clear Urine Odor Normal Strong Normal Comment Urine incontinence at HS. Data Completed and Pending Pending Labs at Discharge: 07/10/25 07/10/25 07/10/25 08:12 09:50 11:02 WBC 9.05 RBC 4.54 Hgb 13.2 Hct 39.6 MCV 87 MCH 29.1 MCHC 33.3 RDW 14.2 Plt Count 247 MPV 10.8 Immature Gran % 0.3 Neutrophils % 70.1 Lymphocytes % 17.2 Monocytes % 8.6 Eosinophils % 3.2 Basophils % 0.6 Nucleated RBC % 0.0 Absolute Neutrophils 6.34 Absolute Lymphocytes 1.56 Absolute Monocytes 0.78 Absolute Eosinophils 0.29 Absolute Basophils 0.05 D-Dimer 518 H Sodium 142 Potassium 3.6 Chloride 107 Carbon Dioxide 24.8 Anion Gap 10.2 BUN 20 Creatinine 0.8 Est GFR (CKD-EPI 2020) 73.15 Glucose 123 H Calcium 9.3 Magnesium 1.6 Total Bilirubin 0.50 AST 22 ALT 25 Alkaline Phosphatase 58 Troponin I 10 8 NT-Pro-B Natriuret Pep 1231 H Total Protein 7.0 Albumin 4.3 TSH 6.11 H Free T4 1.51 COVID-19 Source Nasopharynx SARS-CoV-2 (PCR) Negative Influenza Type A (PCR) Negative Influenza Type B (PCR) Negative RSV (PCR) Negative 07/10/25 07/11/25 11:27 05:45 WBC RBC Hgb Hct MCV MCH MCHC RDW Plt Count MPV Immature Gran % Neutrophils % Lymphocytes % Monocytes % Eosinophils % Basophils % Nucleated RBC % Absolute Neutrophils Absolute Lymphocytes Absolute Monocytes Absolute Eosinophils Absolute Basophils D-Dimer Sodium 144 Potassium 3.5 Chloride 109 H Carbon Dioxide 23.4 Anion Gap 11.6 H BUN 16 Creatinine 0.7 Est GFR (CKD-EPI 2020) 77.79 Glucose 118 H Calcium 9.1 Magnesium 1.7 Total Bilirubin 0.30 AST 17 ALT 21 Alkaline Phosphatase 49 Troponin I 7 NT-Pro-B Natriuret Pep Total Protein 6.0 Albumin 3.7 TSH Free T4 COVID-19 Source SARS-CoV-2 (PCR) Influenza Type A (PCR) Influenza Type B (PCR) RSV (PCR) PFSH All Active Problems (Updated 07/10/25 @ 10:04 by Pradeep Marmolejo MD) Atrial fibrillation with rapid ventricular response (Acute) Candidal intertrigo (Acute) PAF (paroxysmal atrial fibrillation) (Acute) 03/24/25 Cardiology - ZIO Patch planned Fluid overload (Acute) Atrial flutter (Acute) Tachycardia (Acute) Irregular heart rhythm (Acute) Environmental allergies (Acute) Dust, mold, pollen Recurrent carcinoma of endometrium (Acute ~11/2024) Grade 3 determined with bx. 12/08/24 met with TANK WAGON OPERATOR - options discussed for treatment 01/05/25 [facility] Rad/Onc Sensorineural hearing loss, bilateral (Acute) 03/12/24 Otolayryngology Endometrial cancer determined by uterine biopsy (Acute ~12/2022) 01/25/23 grading supervisor, Dr. Armendariz - recurrence at vaginal apex. 02/20/23 F/u Dr Armendariz, will start #2 cycle in 3w will be treated with Chemo 02/16/23 PET Scan scheduled Vaginal lesion (Acute) 12/08/24 saw TANK WAGON OPERATOR - recurrence of endometrial ca. Vaginal bleeding (Acute) Screening for colon cancer (Acute) Morbid obesity with body mass index of 45.0-49.9 in adult (Acute) Mite infestation (Acute) Since March? Possible scabies? Landlord evaluating, but no other apts complaining.. Itching (Acute) with excoriations.. Rash (Acute) Snoring (Acute) Hypertrophic toenail (Acute) Hypothyroidism (Chronic) Osteoarthritis of right knee (Acute) Medicare annual wellness visit, subsequent (Acute) Endometrial carcinoma (Acute) 07/09/2019 [facility] [place] COLLATERAL CLERK Stage IB grade 3 08/14/19- [facility] [place]/BSO with sentinel lymph node biopsies. 11/11/19 Dr Nuñez [facility] [place], [place] undergoing Radiation Therapy. 11/23/22 F/u [facility] Rad Onc - no evidence for regional sugey or distant sites of metastasis 12/2022. Exam under anesthesia with vaginal biopsy consistent with FIGO grade 3 endometrial adenocarcinoma, recurrence. Referral to [facility] [place] INSURANCE FOLLOW UP SPECIALIST oncology placed S/P dilatation and curettage (Acute) 07/09/19 Dr Tijerina, [facility] Med [facility].- Grade 3 Endometrial Adenocarcinoma Cervical stenosis (uterine cervix) (Acute) Post-menopausal bleeding (Acute) Flat feet, bilateral (Acute) Gout (Acute 06/07/17) Headache (Acute 06/07/17) Pure hypercholesterolemia (Acute 06/07/17) Primary osteoarthritis of both knees (Acute 06/07/17) Pre-diabetes (Acute 06/07/17) Obesity (Acute 10/08/17) Hypothyroidism (Acute 06/07/17) Gastroesophageal reflux disease without esophagitis (Acute 04/08/18) Essential hypertension (Acute 06/07/17) Constipation (Acute 04/08/18) Medical History Atrial fibrillation with RVR Difficult intravenous access Osteoarthritis High cholesterol Hyperthyroidism pt. denies this-states HYPOthroidism Vertigo HTN (hypertension) GERD (gastroesophageal reflux disease) Hiatal hernia Surgical History History of total left knee replacement (08/18/24) History of total right knee replacement (12/21/20) Status post hysterectomy with oophorectomy (08/14/19) 08/14/19- [facility] [place]BSO with sentinel lymph node biopsies. History of dilatation and curettage History of colonoscopy Ligation of fallopian tube Cholecystectomy Appendectomy Family History Mother Arteriosclerotic heart disease (ASHD) Father , Heart Attack at age 83. Arteriosclerotic heart disease (ASHD) Sister Essential hypertension Sister Sarcoidosis Brother Substance abuse Alcoholism Diabetes Brother , Logging Accident Diabetes Brother Neoplasm Liver Social History Smoking/Tobacco Use Status: Never Smoking risk assessment performed?: Yes Alcohol Intake: current Alcohol Intake frequency: holidays/special occasions only Alcohol type: wine and other Drug use: Never Substance use type: does not use Adopted: No Household members: spouse Housing: apartment Number of Children: 5 Communication Needs: None Pets and animals: No Current gender identity: female What is your relationship status?: Panel score (0-1 are the most socially isolated patients): 1 What type of physical activity do you participate in: walking Duration: 15-30 minutes/day Frequency: 1-2 times per week Seatbelt use: always Working smoke detector in home: Yes Fire extinguisher in home: Yes Carbon monox detector in home: Yes Firearms in home: Yes (pellet gun) Firearms unloaded and locked: Yes Do you feel safe at home: Yes Do you feel safe in your relationship?: Yes Time Spent with Patient Time Spent with Patient: 45-69 minutes Time was spent: preparing to see the patient(eg.review tests), obtaining and/or reviewing separately otained hiistory, ordering medications,tests, procedures, referring, communicating with other health child daycare worker, indepentently interpreting results, counseling the patient and care coordination
== END 2025-07-11 16:16 | disposition home or self-care (01) | DRG 309 ==
LOC: ER 10:04 → ICU 14:36
PROVIDERS: Admitting Provider Family Medicine; Emergency Provider Student in an Organized Health Care Education/Training Program; PCP Nurse Practitioner; Responsible Provider Family Medicine; Visit Provider Family Medicine
DX: I48.0 Paroxysmal atrial fibrillation (principal); C54.1 Malignant neoplasm of endometrium; E66.01 Morbid (severe) obesity due to excess calories; Z68.41 Body mass index [BMI] 40.0-44.9, adult; Z79.01 Long term (current) use of anticoagulants; Z79.899 Other long term (current) drug therapy; E83.42 Hypomagnesemia; E03.9 Hypothyroidism, unspecified; I10 Essential (primary) hypertension; I48.92 Unspecified atrial flutter; L30.4 Erythema intertrigo; K59.00 Constipation, unspecified; K21.9 Gastro-esophageal reflux disease without esophagitis; R73.03 Prediabetes; E78.00 Pure hypercholesterolemia, unspecified; K44.9 Diaphragmatic hernia without obstruction or gangrene; Z96.653 Presence of artificial knee joint, bilateral
CPT/HCPCS: 00123; 36415; 80053; 87637; 93005; 96365; 96366; 96376; 99291; 71046; 83735; 83880; 84439; 84443; 84484; 85025; 85379; 93010; 93971; 99222; 99239; J0282; J0283